=== PATIENT | male | born 1955 | race Two or more races ===

== ENCOUNTER 2019-01-29 00:27 | Emergency (ER) | payer MEDICARE ==
[~2019-01-29] VITALS: Ht 180.3 cm; Wt 81.6 kg
--- NOTE | 2019-01-29 00:36 | NUR ---
ED Nurse Note: Patient brought in by RA from [facility] c/o bleeding on portha cath dialysis access. As per EMS, nurses from the SNF tried to control the bleeding by applying pressure gauze but the bleeding woudnt stop. Denies any pain or discomfort. No SOB. Breathing even adn unlabored. Afebrile. VSS.
--- NOTE | 2019-01-29 00:39 | NUR ---
Spoke with Singh at [facility]-aware of patient going back.
[2019-01-29 00:45] VITALS: BP 121/69
--- NOTE | 2019-01-29 00:45 | NUR ---
ED Nurse Note: Porthacath dressing change done at bedside by BIRD.
--- NOTE | 2019-01-29 00:53 | Emergency Room Report ---
History of Present Illness General Chief Complaint: General Complaint Source: Patient Present Illness HPI Is a 63-year-old male with a history of renal failure on hemodialysis. He had a recent tunnel catheter placed in his right chest 2 to 3 days ago. Since then is been oozing blood and bleeding. According to EMS [facility] called because it was bleeding since 10 PM tonight and was not stopping leg before. So they called 911. They claim that the patient been picking at it. Denies any other injury. No fever chills but no nausea no vomiting. Patient is at baseline. Allergies: Coded Allergies: No Known Allergies (Unverified , 01/29/19) Patient History Past Medical History: see triage record, old chart reviewed, HTN, renal disease , dialysis Past Surgical History: other Pertinent Family History: none Social History: Denies: smoking Immunizations: other Reviewed Nursing Documentation: PMH: Agreed; PSxH: Agreed Nursing Documentation-PMH Past Medical History: No History, Except For Hx Hypertension: Yes Hx Dialysis: Yes - TTHS Review of Systems Eye: Denies: eye pain, blurred vision ENT: Denies: ear pain, nose congestion, throat swelling Respiratory: Denies: cough, shortness of breath Cardiovascular: Denies: chest pain, palpitations Gastrointestinal: Denies: abdominal pain, diarrhea, nausea, vomiting Musculoskeletal: Denies: back pain, joint pain Skin: Denies: rash Neurological: Denies: headache, numbness Endocrine: Denies: increased thirst, increased urine Hematologic/Lymphatic: Denies: easy bruising All Other Systems: negative except mentioned in HPI Physical Exam Vital Signs Date Time Temp Pulse Resp B/P (MAP) Pulse Ox O2 Delivery O2 Flow Rate FiO2 01/29/19 00:29 98.2 82 14 121/69 (86) 98 Room Air Vitals normal Sp02 EP Interpretation: reviewed, normal General Appearance: well appearing, no apparent distress, alert Head: normocephalic, atraumatic Eyes: bilateral eye PERRL, bilateral eye EOMI ENT: hearing grossly normal, normal pharynx Neck: full range of motion, supple, no meningismus Respiratory: chest non-tender, lungs clear, normal breath sounds, other - Right upper chest with tunneled dialysis catheter. There is oozing and clots at the entrance of the catheter. Cardiovascular #1: regular rate, rhythm, no murmur Gastrointestinal: normal bowel sounds, non tender, no mass, no organomegaly, no bruit, non-distended Musculoskeletal: back normal, normal range of motion, gait/station normal Psychiatric: mood/affect normal Procedures Laceration/Wound Repair Laceration/Wound Repair : Consent: Verbal Wound Location: chest Betadine Prep?: Yes Anesthesia: 1% Lidocaine Volume Anesthetic (ccs): 2 Wound Repaired With: sutures Suture Size/Type: 4:0, proline Number of Sutures: 2 Patient Tolerated: Well Complications: None Progress First, I remove the dressing and remove the clots. There was oozing from the entrance of the tunnel catheter into the skin. The opening is slightly too big. I then did local anesthetic 1% lidocaine without epinephrine. I placed 2 interrupted suture to close the opening. This stopped the bleeding. Patient tolerated suture without any problem. Dressing done afterward. Medical Decision Making Diagnostic Impression: Primary Impression: Post-op bleeding Qualified Codes: L76.22 - Postprocedural hemorrhage of skin and subcutaneous tissue following other procedure ER Course Patient presents with postoperative bleeding from tunnel catheter. This is because the opening is slightly too big for the dialysis catheter. It stopped after closing it up. No evidence of any infection. No evidence of damage to the catheter itself. Will discharge home to the [facility]. Last Vital Signs Date Time Temp Pulse Resp B/P (MAP) Pulse Ox O2 Delivery O2 Flow Rate FiO2 01/29/19 00:45 82 14 Room Air 01/29/19 00:29 98.2 121/69 (86) 98 Status: improved Disposition: HOME, SELF-CARE Condition: Stable Scripts Unable to Obtain Active Prescriptions or Reported Meds Additional Instructions: Follow-up with your doctor in 7 days. Return if symptoms worsen. Matthias Chicas MD Jan 29, 2019 00:53
[2019-01-29 02:24] VITALS: BP 151/71
--- NOTE | 2019-01-29 02:24 | NUR ---
ED Nurse Note: Pt cleared by ERMDr for discharge. DC instructions was given and explained to pt and verbalized understanding of teachings. All medical deviecs such as ID band removed. Pt is AAO x4, and left with all personal belongings. Accompanied by 2 EMT via bette.
== END 2019-01-29 02:24 ==
LOC: EDBD 00:27 → EMR 00:58
DX: L76.22 Postprocedural hemorrhage of skin and subcutaneous tissue following other procedure (principal); I12.9 Hypertensive chronic kidney disease with stage 1 through stage 4 chronic kidney disease, or unspecified chronic kidney disease; N18.9 Chronic kidney disease, unspecified; Z99.2 Dependence on renal dialysis
CPT/HCPCS: 99283

== ENCOUNTER 2019-02-17 10:17 | Emergency (ER) | payer MEDICARE, OTHER ==
[~2019-02-17] VITALS: Ht 172.7 cm; Wt 77.1 kg
[2019-02-17 10:20] VITALS: BP 135/87
--- NOTE | 2019-02-17 10:20 | NUR ---
ED Nurse Note: Pt BIBA from [facility] with bleeding from right chest permacath. Pt denies pain, SOB. Gauze dressing saturated and removed for observation. Pt on monitor, NAD, VSS, ERMD at bedside. Will continue to monitor patient.
--- NOTE | 2019-02-17 10:30 | NUR ---
ED Nurse Note: Permacath dressing removed, cleaned, and redressed. Patient NAD, VSS, calm, and resting. Will continue to monitor patient.
[2019-02-17] MEDS ORDERED: CARVEDILOL3.125 MG ORAL (10:32)
[2019-02-17] MEDS ORDERED: EPOGEN10000 UNIT SUBQ (10:32)
[2019-02-17] MEDS ORDERED: ASPIR 8181 MG ORAL (10:32)
[2019-02-17] MEDS ORDERED: LOSARTAN POTASS25 MG ORAL (10:32)
[2019-02-17] MEDS ORDERED: FAMOTIDINE20 MG ORAL (10:32)
[2019-02-17] MEDS ORDERED: HEPARIN SO5000 UNIT2 SUBQ (10:32)
[2019-02-17] MEDS ORDERED: ATORVASTATIN CA40 MG ORAL (10:33)
--- NOTE | 2019-02-17 10:42 | Emergency Room Report ---
History of Present Illness General Chief Complaint: General Complaint Source: EMS Present Illness HPI Disclaimer: Please note that this report is being documented using DRAGON technology. This can lead to erroneous entry secondary to incorrect interpretation by the dictating instrument. HPI: 63-year-old male with history of ESRD on hemodialysis TRS last hemodialysis 02/14 presents for evaluation of bleeding catheter. Patient recently had a tunnel catheter placed in the right chest wall for dialysis access. Last hemodialysis was 02/14 without complication. Catheter was found to be oozing today at his facility. Could not control the bleeding and the patient was sent over. He arrives with stable vital signs, denies pain. He was scheduled for dialysis today. He has no complaints. He is on heparin. PMH: ESRD, HTN PSH: Tunneled catheter Allergies: None Social Hx: None Allergies: Coded Allergies: No Known Allergies (Unverified , 01/29/19) Nursing Documentation-PMH Past Medical History: No History, Except For Hx Hypertension: Yes Hx Diabetes: Yes Hx Gastrointestinal Problems: Yes - GERD Hx Dialysis: Yes - MWF Review of Systems All Other Systems: negative except mentioned in HPI Physical Exam Vital Signs Date Time Temp Pulse Resp B/P (MAP) Pulse Ox O2 Delivery O2 Flow Rate FiO2 02/17/19 10:13 97.2 84 19 142/90 (107) 99 Room Air General: Awake and alert, no acute distress HEENT: NC/AT. EOMI. Neck: Supple, trachea midline Chest Wall: Tunneled catheter in the right chest wall. Bandages are saturated but there is no active bleeding. Some stable clots around the access sites. Cardiovascular: RRR. S1 and S2 normal. No murmur appreciated Resp: Normal work of breathing. No cough, wheezing or crackles appreciated Abdomen: Abdomen is soft, nondistended. Nontender Skin: Intact. No abrasions, laceration or rash over the exposed skin MSK: Normal tone and bulk. Moving all extremities. No obvious deformity. Neuro: Awake and alert. Mentating appropriately. Medical Decision Making Diagnostic Impression: Primary Impression: Encounter for dialysis catheter care ER Course 63-year-old male history of ESRD on hemodialysis TRS last dialysis session presents for evaluation of bleeding from his dialysis catheter. No active bleeding at the time. We will clean the port thoroughly and monitor. He is reportedly taking heparin. No signs of trauma. Otherwise he has no complaints. He arrives with stable vital signs. Will check labs given he has not had dialysis for 3 days. Otherwise well-appearing. Laboratory Tests Test 02/17/19 10:30 White Blood Count 8.3 K/UL (4.8-10.8) Red Blood Count 3.38 M/UL (4.70-6.10) L Hemoglobin 9.6 G/DL (14.2-18.0) L Hematocrit 31.1 % (42.0-52.0) L Mean Corpuscular Volume 92 FL (80-99) Mean Corpuscular Hemoglobin 28.3 PG (27.0-31.0) Mean Corpuscular Hemoglobin Concent 30.8 G/DL (32.0-36.0) L Red Cell Distribution Width 19.0 % (11.6-14.8) H Platelet Count 208 K/UL (150-450) Mean Platelet Volume 5.8 FL (6.5-10.1) L Neutrophils (%) (Auto) 65.8 % (45.0-75.0) Lymphocytes (%) (Auto) 22.9 % (20.0-45.0) Monocytes (%) (Auto) 8.2 % (1.0-10.0) Eosinophils (%) (Auto) 2.2 % (0.0-3.0) Basophils (%) (Auto) 1.0 % (0.0-2.0) Prothrombin Time 11.4 SEC (9.30-11.50) Prothrombin Time INR 1.1 (0.9-1.1) PTT 32 SEC (23-33) Sodium Level 136 MMOL/L (136-145) Potassium Level 4.9 MMOL/L (3.5-5.1) Chloride Level 101 MMOL/L (98-107) Carbon Dioxide Level 25 MMOL/L (21-32) Anion Gap 10 mmol/L (5-15) Blood Urea Nitrogen 95 mg/dL (7-18) H Creatinine 6.5 MG/DL (0.55-1.30) H Estimate Glomerular Filtration Rate 8.6 mL/min (>60) Glucose Level 234 MG/DL (74-106) H Calcium Level 9.0 MG/DL (8.5-10.1) Reevaluation Time: 12:07 Last Vital Signs Date Time Temp Pulse Resp B/P (MAP) Pulse Ox O2 Delivery O2 Flow Rate FiO2 02/17/19 10:13 97.2 84 19 142/90 (107) 99 Room Air Reevaluation Impression Labs unremarkable. No need for emergent dialysis. No recurrent bleeding. Can be discharged to his facility. Follow-up with nephrology and PMD. Disposition: [facility] Condition: Stable Don Gambino MD Feb 17, 2019 10:42
[2019-02-17] MEDS ORDERED: VENTOLIN HFA18 GM INH (10:44)
[2019-02-17] MEDS ORDERED: TYLENOL EXTRA500 MG ORAL (10:44)
[2019-02-17] MEDS ORDERED: ASCORBIC ACID500 MG ORAL (10:44)
[2019-02-17 10:51] LABS: ANION GAP 10 mmol/L (5-15); BLOOD UREA NITROGEN 95 mg/dL (7-18); CARBON DIOXIDE 25 MMOL/L (21-32); CHLORIDE 101 MMOL/L (98-107); CREATININE 6.5 MG/DL (0.55-1.30); EOSINOPHILS % (AUTO) 2.2 % (0.0-3.0); HEMATOCRIT 31.1 % (42.0-52.0); HEMOGLOBIN 9.6 G/DL (14.2-18.0); LYMPHOCYTES % (AUTO) 22.9 % (20.0-45.0); MEAN CORPUSCULAR VOLUME 92 FL (80-99); MONOCYTES % (AUTO) 8.2 % (1.0-10.0); NEUTROPHILS % (AUTO) 65.8 % (45.0-75.0); PLATELET COUNT 208 K/UL (150-450); POTASSIUM 4.9 MMOL/L (3.5-5.1); RED BLOOD COUNT 3.38 M/UL (4.70-6.10); SODIUM 136 MMOL/L (136-145); WHITE BLOOD COUNT 8.3 K/UL (4.8-10.8)
[2019-02-17] MEDS ORDERED: SILVADENE20 GM TP (10:53)
[2019-02-17] MEDS ORDERED: NEPHROVITE1 TAB ORAL (10:53)
[2019-02-17 11:23] LABS: INR 1.1 (0.9-1.1)
[2019-02-17] MEDS ORDERED: DOCUSATE SODIU100 MG ORAL (11:44)
[2019-02-17] MEDS ORDERED: INSULIN CHARG5 UNITS SUBQ (11:44)
[2019-02-17] MEDS ORDERED: INSULIN LI100 UNIT/1 SQ (11:44)
[2019-02-17 12:04] VITALS: BP 135/87
--- NOTE | 2019-02-17 12:56 | NUR ---
ED Nurse Note: REPORT GIVEN TO NURSE MICKEY FROM [facility]
[2019-02-17 13:30] VITALS: BP 133/67
--- NOTE | 2019-02-17 13:30 | NUR ---
ER DISCHARGE NOTE: Patient is cleared to be discharged per ERMD, pt is aox4, on room air, with stable vital signs. pt nurse Pauline was given dc and prescription instructions, pt and nurse was able to verbalize understanding, pt id band removed without complications. pt is transported to facility accompanied by [facility] via gurney. Pt belonging sent with patient.
== END 2019-02-17 13:30 | disposition home or self-care (01) ==
LOC: EDBD 10:17 → EMR 11:10
DX: Z49.01 Encounter for fitting and adjustment of extracorporeal dialysis catheter (principal); E11.22 Type 2 diabetes mellitus with diabetic chronic kidney disease; I12.0 Hypertensive chronic kidney disease with stage 5 chronic kidney disease or end stage renal disease; N18.6 End stage renal disease; K21.9 Gastro-esophageal reflux disease without esophagitis
CPT/HCPCS: 36415; 80048; 85025; 85610; 85730; 99284

== ENCOUNTER 2019-02-21 18:51 | Inpatient (IN) | payer MEDICARE, OTHER ==
[~2019-02-21] VITALS: Ht 172.7 cm; Wt 75.7 kg
[2019-02-21] MEDS: Heparin 5000 units/ml inj SUBQ SCH (00:55)
[2019-02-21] MEDS: NovoLOG Insulin Flexpen SUBQ SCH (00:55)
[~2019-02-21 18:51] MED LIST: ASCORBIC ACID500 MG ORAL; ASPIR 8181 MG ORAL; ATORVASTATIN CA40 MG ORAL; CARVEDILOL3.125 MG ORAL; DOCUSATE SODIU100 MG ORAL; EPOGEN10000 UNIT SUBQ; FAMOTIDINE20 MG ORAL; HEPARIN SO5000 UNIT2 SUBQ; INSULIN CHARG5 UNITS SUBQ; INSULIN LI100 UNIT/1 SQ; LOSARTAN POTASS25 MG ORAL; NEPHROVITE1 TAB ORAL; SILVADENE20 GM TP; TYLENOL EXTRA500 MG ORAL; VENTOLIN HFA18 GM INH
--- NOTE | 2019-02-21 18:55 | NUR ---
ED Nurse Note: Pt BIBA from [facility] d/t SOB. Pt is AOx3 tajik speaking. Current O2 sat is on 96-99% with 15 liters. Pt arrived with family member. Accucheck performed by in store marketing representative with 182mg/dl; denies pain and trauma. Per in store marketing representative, pt had a missed dialysis today. Shunt on RT wrist. Placed on bed; hooked to property assessment monitor.
[2019-02-21] MEDS ORDERED: SULFADIAZINE MC (18:59)
[2019-02-21] MEDS ORDERED: NEPHROVITE1 TAB ORAL (18:59)
--- NOTE | 2019-02-21 19:10 | NUR ---
HAND-OFF: Report given to KRISTEN Quijano.
--- NOTE | 2019-02-21 19:10 | NUR ---
Note georgeone in EDM - 02/21/19 at 1941 by LUX ED Nurse Note: Report received from KRISTEN Obrien. Pt has shunt on right upper chest. Pt is on NRB at 15L oxygen at this time o2 sat 98%. Pt is lethargic and unable to answer questions. IV line established on L forearm. Will continue to monitor.
[2019-02-21 19:15] VITALS: BP 102/54
[2019-02-21] MEDS ORDERED: NS 250 ML IVPB ONE (19:30)
[2019-02-21 19:35] LABS: HEMATOCRIT 32.8 % (42.0-52.0); HEMOGLOBIN 10.3 G/DL (14.2-18.0); MEAN CORPUSCULAR VOLUME 95 FL (80-99); PLATELET COUNT 210 K/UL (150-450); RED BLOOD COUNT 3.46 M/UL (4.70-6.10); RED CELL DISTRIBUTION WIDTH 19.7 % (11.6-14.8); WHITE BLOOD COUNT 15.2 K/UL (4.8-10.8)
[2019-02-21 20:05] LABS: ANION GAP 12 mmol/L (5-15); BLOOD UREA NITROGEN 48 mg/dL (7-18); CALCIUM 8.7 MG/DL (8.5-10.1); CARBON DIOXIDE 28 MMOL/L (21-32); CHLORIDE 101 MMOL/L (98-107); CREATININE 3.9 MG/DL (0.55-1.30); POTASSIUM 4.5 MMOL/L (3.5-5.1); SODIUM 140 MMOL/L (136-145)
[2019-02-21 20:15] LABS: ALANINE AMINOTRANSFERASE 31 U/L (12-78); ALBUMIN 2.5 G/DL (3.4-5.0); ALBUMIN/GLOBULIN RATIO 0.5 (1.0-2.7); ALKALINE PHOSPHATASE 301 U/L (46-116); ASPARTATE AMINO TRANSFERASE 48 U/L (15-37)
[2019-02-21 20:19] LABS: BILIRUBIN,DIRECT 1.7 MG/DL (0.0-0.3)
[2019-02-21] MEDS ORDERED: Promethazine/Codeine 5ml UD ORAL PRN (20:45)
[2019-02-21] MEDS ORDERED: Miralax 17gm pkt ORAL PRN (20:45)
[2019-02-21] MEDS ORDERED: LORazepam Inj 2mg/ml 1ml IV PRN (20:45)
[2019-02-21] MEDS ORDERED: Albuterol/Ipratropium 3ml neb HHN PRN (20:45)
[2019-02-21 21:00] VITALS: BP 113/69
--- NOTE | 2019-02-21 21:33 | Emergency Room Report ---
History of Present Illness General Chief Complaint: Dyspnea/Respdistress Source: Family Member, Medical Record Present Illness HPI 63-year-old male presents ED for evaluation. [facility] Shortness of breath x1 day. Patient has history of end- stage renal disease on dialysis. Scheduled for dialysis today but brought to the hospital. Patient unable to provide any additional history at this time. No reported fevers or chills. No reported chest pain. No other aggravating relieving factors. No other associated symptoms Allergies: Coded Allergies: No Known Allergies (Unverified , 01/29/19) Patient History Past Medical History: DM, HTN, GERD, renal disease, dialysis Past Surgical History: none Pertinent Family History: none Social History: Denies: smoking, alcohol use, drug use Immunizations: UTD Reviewed Nursing Documentation: PMH: Agreed; PSxH: Agreed Nursing Documentation-PMH Past Medical History: No History, Except For Hx Hypertension: Yes Hx Diabetes: Yes Hx Gastrointestinal Problems: Yes - GERD Hx Dialysis: Yes - MWF; ESRD; UTI Review of Systems All Other Systems: limited Physical Exam Vital Signs Date Time Temp Pulse Resp B/P (MAP) Pulse Ox O2 Delivery O2 Flow Rate FiO2 02/21/19 18:46 97.5 60 20 101/68 (79) 99 Nasal Cannula 10.0 Sp02 EP Interpretation: reviewed, normal General Appearance: mild distress Head: normocephalic Eyes: bilateral eye normal inspection, bilateral eye PERRL ENT: normal ENT inspection Neck: normal inspection Respiratory: crackles Cardiovascular #1: regular rate, rhythm, no edema Gastrointestinal: normal bowel sounds, non tender, soft, non-distended, no guarding, no rebound Rectal: deferred Genitourinary: no CVA tenderness Musculoskeletal: normal inspection Neurologic: other - ALOC Psychiatric: other - ALOC Skin: other - see nursing skin notes Lymphatic: normal inspection Medical Decision Making Diagnostic Impression: Primary Impression: ESRF (end stage renal failure) Additional Impression: Pleural effusion ER Course Hospital Course 63 yo M presents with SOB. h/o ESRD on dialysis Differential diagnoses include: MO/unstable angina, fluid overload, CHF exacerabation, hyperkalemia, uremia Clinical course Patient placed on stretcher. on hospital monitor. After initial history and physical I ordered labs, EKG, chest x-ray labs reviewed- BUN/Cr elevated. K ok. noted leukocytosis, hemoglobin/ hematocrit stable. Trop 0.064. ABG wnl EKG - NSR, no acute ischemic changes inteprreted by me Chest x-ray- large bialteral pleural effusiosn given abx. Case discussed with Dr. jauregui and he agreed to accept the patient to his service for further care and support I. I feel this is a highly complex case requiring extensive working including EKG/Rhythm strip, Xray/CT/US, Blood/urine lab work, repeat exams while in ED, and administration of strong opiates/narcotics for pain control, admission to hospital or close patient follow up. Diagnosis - ESRF, pleural effusion admitted to telemetry in serious condition Labs Test 02/21/19 19:10 02/21/19 19:30 White Blood Count 15.2 K/UL (4.8-10.8) Red Blood Count 3.46 M/UL (4.70-6.10) Hemoglobin 10.3 G/DL (14.2-18.0) Hematocrit 32.8 % (42.0-52.0) Mean Corpuscular Volume 95 FL (80-99) Mean Corpuscular Hemoglobin 29.9 PG (27.0-31.0) Mean Corpuscular Hemoglobin Concent 31.4 G/DL (32.0-36.0) Red Cell Distribution Width 19.7 % (11.6-14.8) Platelet Count 210 K/UL (150-450) Mean Platelet Volume 7.2 FL (6.5-10.1) Neutrophils (%) (Auto) % (45.0-75.0) Lymphocytes (%) (Auto) % (20.0-45.0) Monocytes (%) (Auto) % (1.0-10.0) Eosinophils (%) (Auto) % (0.0-3.0) Basophils (%) (Auto) % (0.0-2.0) Sodium Level 140 MMOL/L (136-145) Potassium Level 4.5 MMOL/L (3.5-5.1) Chloride Level 101 MMOL/L (98-107) Carbon Dioxide Level 28 MMOL/L (21-32) Anion Gap 12 mmol/L (5-15) Blood Urea Nitrogen 48 mg/dL (7-18) Creatinine 3.9 MG/DL (0.55-1.30) Estimat Glomerular Filtration Rate 15.6 mL/min (>60) Glucose Level 160 MG/DL (74-106) Calcium Level 8.7 MG/DL (8.5-10.1) Total Bilirubin 2.0 MG/DL (0.2-1.0) Direct Bilirubin 1.7 MG/DL (0.0-0.3) Aspartate Amino Transf (AST/SGOT) 48 U/L (15-37) Alanine Aminotransferase (ALT/SGPT) 31 U/L (12-78) Alkaline Phosphatase 301 U/L (46-116) Troponin I 0.064 ng/mL (0.000-0.056) Pro-B-Type Natriuretic Peptide 67885 pg/mL (0-125) Total Protein 7.4 G/DL (6.4-8.2) Albumin 2.5 G/DL (3.4-5.0) Globulin 4.9 g/dL Albumin/Globulin Ratio 0.5 (1.0-2.7) Arterial Blood pH 7.405 (7.350-7.450) Arterial Blood Partial Pressure CO2 43.5 mmHg (35.0-45.0) Arterial Blood Partial Pressure O2 89.2 mmHg (75.0-100.0) Arterial Blood HCO3 26.6 mmol/L (22.0-26.0) Arterial Blood Oxygen Saturation 95.7 % (95-100) Arterial Blood Base Excess 1.7 (-2-2) Shai Test Positive EKG Diagnostic Results Rate: normal Rhythm: NSR ST Segments: no acute changes ASA given to the pt in ED: No Rhythm Strip Diag. Results EP Interpretation: yes Rhythm: NSR, no PVC's, no ectopy Chest X-Ray Diagnostic Results Chest X-Ray Diagnostic Results : Chest X-Ray Ordered: Yes # of Views/Limited/Complete: 1 View Indication: Shortness of Breath EP Interpretation: Yes Interpretation: no pneumothorax, other - pleural effusion bilaterally. dialysis catheter in chest Impression: Other - pleural effusion Electronically Signed by: Electronically signed by Isaak Mo MD Last Vital Signs Date Time Temp Pulse Resp B/P (MAP) Pulse Ox O2 Delivery O2 Flow Rate FiO2 02/21/19 19:15 97.5 65 20 102/54 98 Non-Rebreather 15.0 Status: improved Disposition: ADMITTED INPATIENT Condition: Serious Referrals: NON PHYSICIAN (PCP) Isaak Mo MD Feb 21, 2019 21:33
--- NOTE | 2019-02-21 22:50 | NUR ---
ED Nurse Note: Pt taken to tele unit by RN and stephen, connected to ekg monitor. Pt is stable to transport to unit via ERMD. Pt aaox2, moaning, no cardiac or respiratory distress noted. Pt vss as charted. Pt belongings sent to unit with pt.
--- NOTE | 2019-02-21 23:45 | NUR ---
Surveyor Hydrographic: Received pt from Sotero Laboy RN. Pt is awake and transported via gurney. surveillance system monitor placed on patient, vitals taken. Iv site intact. Bed locked in lowest position, bed alarm on, HOB at 45 degrees and non re-breather on 100%, call light within reach. Belongings list verified at bedside. Will continue with plan of care.
[2019-02-22] VITALS: BP 102/60
[2019-02-22] MEDS: Cefepime HCl 2 GM in D5W 110 ML IV SCH (00:27)
[2019-02-22] MEDS: Morphine Sulfate 4mg/ml Inj (IV USE ONLY) IVP PRN ×2 (00:43→16:16)
[2019-02-22] MEDS ORDERED: Vancomycin 750 MG in NS 275 ML IVPB SCH (02:00)
[2019-02-22] MEDS ORDERED: Vancomycin 1 GM in D5W 275 ML IVPB SCH (02:00)
[2019-02-22 04:00] VITALS: BP 105/69
[2019-02-22] MEDS: NovoLOG Insulin Flexpen SUBQ SCH ×4 (06:46→21:55)
[2019-02-22 07:22] LABS: HEMATOCRIT 33.4 % (42.0-52.0); HEMOGLOBIN 10.5 G/DL (14.2-18.0); MEAN CORPUSCULAR VOLUME 95 FL (80-99); PLATELET COUNT 183 K/UL (150-450); RED BLOOD COUNT 3.52 M/UL (4.70-6.10); RED CELL DISTRIBUTION WIDTH 20.8 % (11.6-14.8); WHITE BLOOD COUNT 15.6 K/UL (4.8-10.8)
[2019-02-22 07:57] LABS: ALBUMIN 2.3 G/DL (3.4-5.0); ANION GAP 11 mmol/L (5-15); BLOOD UREA NITROGEN 54 mg/dL (7-18); CALCIUM 8.9 MG/DL (8.5-10.1); CARBON DIOXIDE 26 MMOL/L (21-32); CHLORIDE 96 MMOL/L (98-107); CREATININE 4.4 MG/DL (0.55-1.30); PHOSPHORUS 5.5 MG/DL (2.5-4.9); POTASSIUM 4.4 MMOL/L (3.5-5.1); SODIUM 133 MMOL/L (136-145)
--- NOTE | 2019-02-22 07:58 | NUR ---
NURSE NOTES: Report received from KRISTEN Rutledge. Pt. AOx2. On non breather mask with 15L, saturating 96. Denies SOB. L FA 20g IV intact, SL. Repositioned for comfort. Room made free of clutter. Bed on lowest position, side rails upx2, brakes engaged, alarm on. Call light within easy reach.
--- NOTE | 2019-02-22 07:58 | NUR ---
HAND-OFF: Report given to KRISTEN beaulieu. Endorsed plan of care.
[2019-02-22 08:00] VITALS: BP 113/68
[2019-02-22] MEDS: Heparin 5000 units/ml inj SUBQ SCH ×3 (09:08→22:02)
--- NOTE | 2019-02-22 09:30 | Consultation ---
Consult Note Consult Note asked to eval by Dr Rose for dialysis management 63-year-old male presents ED for evaluation. Brought in by EMS from alf facility. Shortness of breath x1 day. Patient has history of end- stage renal disease on dialysis. Scheduled for dialysis today but brought to the hospital. Patient unable to provide any additional history at this time. No reported fevers or chills. No reported chest pain. No other aggravating relieving factors. No other associated symptoms No Known Allergies (Unverified , 01/29/19) Past Medical History: DM, HTN, GERD, renal disease, dialysis Past Medical History: No History, Except For Hx Hypertension: Yes Hx Diabetes: Yes Hx Gastrointestinal Problems: Yes - GERD Hx Dialysis: Yes - MWF; ESRD; UTI Assessment/Plan ESRD - Has right chest permacath Anemia Leukocytosis Pleural effusion Bradycardia troponin elevation Antibiotics HD 2D echo Magan Lara MD Feb 22, 2019 09:30
--- NOTE | 2019-02-22 10:10 | Consultation ---
History of Present Illness General Date patient seen: Feb 22, 2019 Chief Complaint: Dyspnea/Respdistress Reason for Consultation: PNA Present Illness HPI Mr. Hawley is a 63 yomale with PMHx of ESRD on HD, DM, and HTN who was [facility] the ED from his [facility] for SOB. He is altered and unable to give futher history. Per notes there was no reported fever or chills. In the ED he was put on O2 and was ntoed to have b/L Large pleural effusions. He has been aferbile but WBCs are 15. No UA had been collected. ID was consulted for sepsis PMHx/PSHx ESRD on HD DM HTN SocHx Unable to obtain due to AMS FamHx Unable to obtain due to AMS Allergies: Coded Allergies: No Known Allergies (Unverified , 01/29/19) Medication History Scheduled Albuterol Sulfate (Ventolin Hfa), 1 PUFF INH EVERY 2 HOURS, (Reported) Atorvastatin Calcium* (Atorvastatin Calcium*), 40 MG ORAL BEDTIME, (Reported) Carvedilol* (Carvedilol*), 3.125 MG ORAL EVERY 12 HOURS, (Reported) Docusate Sodium* (Docusate Sodium*), 100 MG ORAL TWICE A DAY, (Reported) Epoetin Faizan (Epogen), 10,000 UNIT SUBQ 3XW, (Reported) Famotidine* (Pepcid 20mg tablet*), 20 MG ORAL TWICE A DAY, (Reported) Insulin Human NPH (Novolin N), 12 UNITS SUBQ THREE TIMES A DAY, (Reported) Insulin Lispro (Insulin Lispro), 0-8 UNIT SQ FOUR TIMES A DAY, (Reported) Losartan Potassium* (Losartan Potassium*), 25 MG ORAL DAILY, (Reported) Vitamin B Cmplx/Vit C/Folic AC (Nephro-Chrissie Tablet), 1 TAB ORAL DAILY, (Reported ) Scheduled PRN Acetaminophen* (Tylenol Extra Strength*), 325 MG ORAL Q6H PRN for Mild Pain/ Temp > 100.5, (Reported) Miscellaneous Medications Sulfadiazine Sodium (Sulfadiazine), 100 GM MC, (Reported) Discontinued Medications Ascorbic Acid* (Ascorbic Acid*), 250 MG ORAL DAILY, (Reported) Discontinued Reason: Therapy completed Aspirin* (Aspir 81*), 81 MG ORAL DAILY, (Reported) Discontinued Reason: Therapy completed Heparin Sod (Porcine) (Heparin Sodium*), 5,000 UNITS SUBQ EVERY 12 HOURS, ( Reported) Discontinued Reason: Therapy completed Silver Sulfadiazine (Silvadene), 20 GM TP DAILY, (Reported) Discontinued Reason: Therapy completed Vitamin B Cmplx/Vit C/Folic AC (Nephro-Chrissie Tablet), 1 TAB ORAL DAILY, (Reported ) Discontinued Reason: Therapy completed Patient History Healthcare decision maker Resuscitation status Full Code Advanced Directive on File Review of Systems ROS Narrative Unable to obtain due to AMS Physical Exam Last 24 Hour Vital Signs Date Time Temp Pulse Resp B/P (MAP) Pulse Ox O2 Delivery O2 Flow Rate FiO2 02/22/19 09:00 60 113/68 02/22/19 08:00 97.9 61 22 113/68 (83) 97 02/22/19 08:00 15.0 02/22/19 04:00 60 02/22/19 04:00 97.4 60 20 105/69 (81) 95 02/22/19 04:00 15.0 02/22/19 00:30 Non-Rebreather 15.0 02/22/19 00:00 64 02/22/19 00:00 97.3 64 20 102/60 (74) 96 02/21/19 22:50 98.0 66 20 99/61 100 Non-Rebreather 15.0 02/21/19 21:00 97.5 65 15 113/69 98 Non-Rebreather 15.0 02/21/19 19:15 97.5 65 20 102/54 98 Non-Rebreather 15.0 02/21/19 19:10 60 20 Non-Rebreather 15.0 02/21/19 18:46 97.5 60 20 101/68 (79) 99 Nasal Cannula 10.0 Laboratory Tests Test 02/21/19 19:10 02/21/19 19:30 02/21/19 21:45 02/22/19 06:50 White Blood Count 15.2 K/UL (4.8-10.8) H 15.6 K/UL (4.8-10.8) H Red Blood Count 3.46 M/UL (4.70-6.10) L 3.52 M/UL (4.70-6.10) L Hemoglobin 10.3 G/DL (14.2-18.0) L 10.5 G/DL (14.2-18.0) L Hematocrit 32.8 % (42.0-52.0) L 33.4 % (42.0-52.0) L Mean Corpuscular Volume 95 FL (80-99) 95 FL (80-99) Mean Corpuscular Hemoglobin 29.9 PG (27.0-31.0) 29.7 PG (27.0-31.0) Mean Corpuscular Hemoglobin Concent 31.4 G/DL (32.0-36.0) L 31.4 G/DL (32.0-36.0) L Red Cell Distribution Width 19.7 % (11.6-14.8) H 20.8 % (11.6-14.8) H Platelet Count 210 K/UL (150-450) 183 K/UL (150-450) Mean Platelet Volume 7.2 FL (6.5-10.1) 6.8 FL (6.5-10.1) Neutrophils (%) (Auto) % (45.0-75.0) % (45.0-75.0) Lymphocytes (%) (Auto) % (20.0-45.0) % (20.0-45.0) Monocytes (%) (Auto) % (1.0-10.0) % (1.0-10.0) Eosinophils (%) (Auto) % (0.0-3.0) % (0.0-3.0) Basophils (%) (Auto) % (0.0-2.0) % (0.0-2.0) Differential Total Cells Counted 100 Neutrophils % (Manual) 76 % (45-75) H Pending Lymphocytes % (Manual) 4 % (20-45) L Pending Monocytes % (Manual) 1 % (1-10) Eosinophils % (Manual) 0 % (0-3) Basophils % (Manual) 0 % (0-2) Band Neutrophils 19 % (0-8) H Platelet Estimate Adequate Pending Platelet Morphology Normal Pending Hypochromasia 1+ Anisocytosis 1+ Sodium Level 140 MMOL/L (136-145) 133 MMOL/L (136-145) L Potassium Level 4.5 MMOL/L (3.5-5.1) 4.4 MMOL/L (3.5-5.1) Chloride Level 101 MMOL/L (98-107) 96 MMOL/L (98-107) L Carbon Dioxide Level 28 MMOL/L (21-32) 26 MMOL/L (21-32) Anion Gap 12 mmol/L (5-15) 11 mmol/L (5-15) Blood Urea Nitrogen 48 mg/dL (7-18) H 54 mg/dL (7-18) H Creatinine 3.9 MG/DL (0.55-1.30) H 4.4 MG/DL (0.55-1.30) H Estimat Glomerular Filtration Rate 15.6 mL/min (>60) 13.6 mL/min (>60) Glucose Level 160 MG/DL (74-106) H 154 MG/DL (74-106) H Calcium Level 8.7 MG/DL (8.5-10.1) 8.9 MG/DL (8.5-10.1) Total Bilirubin 2.0 MG/DL (0.2-1.0) H Pending Direct Bilirubin 1.7 MG/DL (0.0-0.3) H Pending Aspartate Amino Transf (AST/SGOT) 48 U/L (15-37) H Pending Alanine Aminotransferase (ALT/SGPT) 31 U/L (12-78) Pending Alkaline Phosphatase 301 U/L (46-116) H Pending Troponin I 0.064 ng/mL (0.000-0.056) Pro-B-Type Natriuretic Peptide 90426 pg/mL (0-125) H Total Protein 7.4 G/DL (6.4-8.2) Pending Albumin 2.5 G/DL (3.4-5.0) L Pending Globulin 4.9 g/dL Albumin/Globulin Ratio 0.5 (1.0-2.7) L Arterial Blood pH 7.405 (7.350-7.450) Arterial Blood Partial Pressure CO2 43.5 mmHg (35.0-45.0) Arterial Blood Partial Pressure O2 89.2 mmHg (75.0-100.0) Arterial Blood HCO3 26.6 mmol/L (22.0-26.0) H Arterial Blood Oxygen Saturation 95.7 % (95-100) Arterial Blood Base Excess 1.7 (-2-2) Shai Test Positive Lactic Acid Level 1.80 mmol/L (0.4-2.0) Hemoglobin A1c Pending Uric Acid Pending Phosphorus Level Pending Magnesium Level Pending Gamma Glutamyl Transpeptidase Pending Total Creatine Kinase Pending Triglycerides Level Pending Cholesterol Level Pending LDL Cholesterol Pending HDL Cholesterol Pending Cholesterol/HDL Ratio Pending Thyroid Stimulating Hormone (TSH) Pending Microbiology Date/Time Source Procedure Growth Status 02/21/19 21:45 Blood Blood Culture - Preliminary Resulted 02/21/19 21:30 Blood Blood Culture - Preliminary Resulted Height (Feet): 5 Height (Inches): 8.00 Weight (Pounds): 169 Medications Current Medications Medications (Trade) Dose Ordered Sig/Feli Route PRN Reason Start Time Stop Time Status Last Admin Dose Admin Acetaminophen (Tylenol) 650 mg Q4H PRN ORAL FEVER 02/21/19 20:45 03/23/19 20:44 Albumin Human 500 ml @ 0 mls/hr Q0M ONCE IV 02/22/19 09:45 02/22/19 09:46 UNV Albuterol/ Ipratropium (Albuterol/ Ipratropium) 3 ml Q4H PRN HHN Shortness of Breath 02/21/19 20:45 02/26/19 20:44 Cefepime HCl 2 gm/ Dextrose 110 ml @ 220 mls/hr Q24H IV 02/22/19 00:00 03/01/19 00:00 02/22/19 00:27 Dextrose (Dextrose 50%) 25 ml Q30M PRN IV Hypoglycemia 02/21/19 20:45 03/23/19 20:44 Dextrose (Dextrose 50%) 50 ml Q30M PRN IV Hypoglycemia 02/21/19 20:45 03/23/19 20:44 Heparin Sodium (Porcine) (Heparin 5000 units/ml) 5,000 units EVERY 12 HOURS SUBQ 02/21/19 21:00 03/23/19 20:59 02/22/19 09:08 Insulin Aspart (NovoLOG) BEFORE MEALS AND HS SUBQ 02/21/19 21:00 03/23/19 20:59 02/22/19 06:46 Lorazepam (Ativan 2mg/ml 1ml) 2 mg Q3H PRN IV For Anxiety 02/21/19 20:45 1/6/20 20:44 Morphine Sulfate (Morphine Sulfate) 4 mg Q4H PRN IVP Severe Pain (Pain Scale 7-10) 02/21/19 20:45 02/28/19 20:44 02/22/19 00:43 Ondansetron HCl (Zofran) 4 mg Q6H PRN IVP Nausea & Vomiting 02/21/19 20:45 03/23/19 20:44 Pantoprazole (Protonix) 40 mg EVERY 12 HOURS IVP 02/22/19 21:00 03/24/19 20:59 UNV Polyethylene Glycol (Miralax) 17 gm DAILYPRN PRN ORAL Constipation 02/21/19 20:45 03/23/19 20:44 Promethazine HCl/ Codeine (Phenergan with Codeine) 5 ml Q4H PRN ORAL For Cough 02/21/19 20:45 03/23/19 20:44 Objective Narrative Gen: Confused, On NRB 15L HEENT: NCAT, MMM, EOMI, PERRL, No Oral lesion, no scleral icterus NECK: full range of motion, supple, no meningismus, No LAD, No JVD LUNGS: CTAB, No W/C, No Accessory muscle use CARDS: RRR, S1, S2, No M/R/G, ABD: Soft, NT, ND, No R/G, + BS, No HSM, No Masses : Deferred Ext: C/C/E, Pulses 2+ B/L (DP, Rad): NEURO: A/O x 0, Moving ext SKIN: Warm/dry, No rashes Assessment/Plan Assessment/Plan: 63 yo male with PMHx of ESRD on HD, DM, and HTN who was sent to the ED from his [facility] for SOB. Respiratory failure Likely due to PNA vs Plerual effusions CXR showed large bialteral pleural effusions No fever Leukocytosis ESRD on HD DM HTN PLAN - Continue Cefepime #1 and Vancomycin #1 - f/u cultures - check Influ screen - Monitor CBC and Temps Thank you for this consult. [facility] will continue to follow the patient with you during this hospitalization. Jaime Lux MD Feb 22, 2019 10:10
[2019-02-22 10:30] LABS: ALANINE AMINOTRANSFERASE 28 U/L (12-78); ALBUMIN 2.4 G/DL (3.4-5.0); ALKALINE PHOSPHATASE 267 U/L (46-116); ASPARTATE AMINO TRANSFERASE 41 U/L (15-37); BILIRUBIN,DIRECT 1.7 MG/DL (0.0-0.3); BILIRUBIN,TOTAL 1.9 MG/DL (0.2-1.0); CHOLESTEROL 122 MG/DL (< 200); CREATINE KINASE 76 U/L (26-308); GAMMA GLUTAMYL TRANSPEPTIDASE 353 U/L (5-85); HDL CHOLESTEROL 30 MG/DL (40-60); PHOSPHORUS 5.4 MG/DL (2.5-4.9); TRIGLYCERIDES 95 MG/DL (30-150)
--- NOTE | 2019-02-22 11:21 | History and Physical ---
History of Present Illness General Date patient seen: Feb 22, 2019 Reason for Hospitalization: Dyspnea/Respdistress Present Illness HPI 63 year old male with hx of ESRF, on HD T, Th, F. HTN, EF of 20%, DM, cognitive impairment with recent recurrent hospitalization brought in from custodial with CC or increasing shortness of breath. He also had leukocytosis. He was/ still is confused and hypoxemic. His CXR showed moderate right effusion Allergies: Coded Allergies: No Known Allergies (Unverified , 01/29/19) Medication History Scheduled Albuterol Sulfate (Ventolin Hfa), 1 PUFF INH EVERY 2 HOURS, (Reported) Atorvastatin Calcium* (Atorvastatin Calcium*), 40 MG ORAL BEDTIME, (Reported) Carvedilol* (Carvedilol*), 3.125 MG ORAL EVERY 12 HOURS, (Reported) Docusate Sodium* (Docusate Sodium*), 100 MG ORAL TWICE A DAY, (Reported) Epoetin Faizan (Epogen), 10,000 UNIT SUBQ 3XW, (Reported) Famotidine* (Pepcid 20mg tablet*), 20 MG ORAL TWICE A DAY, (Reported) Insulin Human NPH (Novolin N), 12 UNITS SUBQ THREE TIMES A DAY, (Reported) Insulin Lispro (Insulin Lispro), 0-8 UNIT SQ FOUR TIMES A DAY, (Reported) Losartan Potassium* (Losartan Potassium*), 25 MG ORAL DAILY, (Reported) Vitamin B Cmplx/Vit C/Folic AC (Nephro-Chrissie Tablet), 1 TAB ORAL DAILY, (Reported ) Scheduled PRN Acetaminophen* (Tylenol Extra Strength*), 325 MG ORAL Q6H PRN for Mild Pain/ Temp > 100.5, (Reported) Miscellaneous Medications Sulfadiazine Sodium (Sulfadiazine), 100 GM MC, (Reported) Discontinued Medications Ascorbic Acid* (Ascorbic Acid*), 250 MG ORAL DAILY, (Reported) Discontinued Reason: Therapy completed Aspirin* (Aspir 81*), 81 MG ORAL DAILY, (Reported) Discontinued Reason: Therapy completed Heparin Sod (Porcine) (Heparin Sodium*), 5,000 UNITS SUBQ EVERY 12 HOURS, ( Reported) Discontinued Reason: Therapy completed Silver Sulfadiazine (Silvadene), 20 GM TP DAILY, (Reported) Discontinued Reason: Therapy completed Vitamin B Cmplx/Vit C/Folic AC (Nephro-Chrissie Tablet), 1 TAB ORAL DAILY, (Reported ) Discontinued Reason: Therapy completed Patient History Healthcare decision maker Resuscitation status Full Code Advanced Directive on File Past Medical/Surgical History Past Medical/Surgical History: (1) Hypertension (2) Diabetes mellitus (3) ESRF (end stage renal failure) (4) Cognitive impairment (5) Pleural effusion Review of Systems All Other Systems: negative except mentioned in HPI Physical Exam General Appearance: WD/WN, confused Lines, tubes and drains: peripheral HEENT: normocephalic, atraumatic Neck: non-tender, normal alignment Respiratory/Chest: chest wall non-tender, lungs clear, decreased breath sounds Breasts: no masses Cardiovascular/Chest: normal peripheral pulses Abdomen: normal bowel sounds, non tender Genitourinary/Rectal: normal genital exam Extremities: normal range of motion Skin Exam: normal pigmentation 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 Lymphatic: anterior cervical Last 24 Hour Vital Signs Date Time Temp Pulse Resp B/P (MAP) Pulse Ox O2 Delivery O2 Flow Rate FiO2 02/22/19 09:00 60 113/68 02/22/19 08:00 97.9 61 22 113/68 (83) 97 02/22/19 08:00 15.0 02/22/19 04:00 60 02/22/19 04:00 97.4 60 20 105/69 (81) 95 02/22/19 04:00 15.0 02/22/19 00:30 Non-Rebreather 15.0 02/22/19 00:00 64 02/22/19 00:00 97.3 64 20 102/60 (74) 96 02/21/19 22:50 98.0 66 20 99/61 100 Non-Rebreather 15.0 02/21/19 21:00 97.5 65 15 113/69 98 Non-Rebreather 15.0 02/21/19 19:15 97.5 65 20 102/54 98 Non-Rebreather 15.0 02/21/19 19:10 60 20 Non-Rebreather 15.0 02/21/19 18:46 97.5 60 20 101/68 (79) 99 Nasal Cannula 10.0 Laboratory Tests Test 02/21/19 19:10 02/21/19 19:30 02/21/19 21:45 02/22/19 06:50 White Blood Count 15.2 K/UL (4.8-10.8) H 15.6 K/UL (4.8-10.8) H Red Blood Count 3.46 M/UL (4.70-6.10) L 3.52 M/UL (4.70-6.10) L Hemoglobin 10.3 G/DL (14.2-18.0) L 10.5 G/DL (14.2-18.0) L Hematocrit 32.8 % (42.0-52.0) L 33.4 % (42.0-52.0) L Mean Corpuscular Volume 95 FL (80-99) 95 FL (80-99) Mean Corpuscular Hemoglobin 29.9 PG (27.0-31.0) 29.7 PG (27.0-31.0) Mean Corpuscular Hemoglobin Concent 31.4 G/DL (32.0-36.0) L 31.4 G/DL (32.0-36.0) L Red Cell Distribution Width 19.7 % (11.6-14.8) H 20.8 % (11.6-14.8) H Platelet Count 210 K/UL (150-450) 183 K/UL (150-450) Mean Platelet Volume 7.2 FL (6.5-10.1) 6.8 FL (6.5-10.1) Neutrophils (%) (Auto) % (45.0-75.0) % (45.0-75.0) Lymphocytes (%) (Auto) % (20.0-45.0) % (20.0-45.0) Monocytes (%) (Auto) % (1.0-10.0) % (1.0-10.0) Eosinophils (%) (Auto) % (0.0-3.0) % (0.0-3.0) Basophils (%) (Auto) % (0.0-2.0) % (0.0-2.0) Differential Total Cells Counted 100 Neutrophils % (Manual) 76 % (45-75) H Pending Lymphocytes % (Manual) 4 % (20-45) L Pending Monocytes % (Manual) 1 % (1-10) Eosinophils % (Manual) 0 % (0-3) Basophils % (Manual) 0 % (0-2) Band Neutrophils 19 % (0-8) H Platelet Estimate Adequate Pending Platelet Morphology Normal Pending Hypochromasia 1+ Anisocytosis 1+ Sodium Level 140 MMOL/L (136-145) 133 MMOL/L (136-145) L Potassium Level 4.5 MMOL/L (3.5-5.1) 4.4 MMOL/L (3.5-5.1) Chloride Level 101 MMOL/L (98-107) 96 MMOL/L (98-107) L Carbon Dioxide Level 28 MMOL/L (21-32) 26 MMOL/L (21-32) Anion Gap 12 mmol/L (5-15) 11 mmol/L (5-15) Blood Urea Nitrogen 48 mg/dL (7-18) H 54 mg/dL (7-18) H Creatinine 3.9 MG/DL (0.55-1.30) H 4.4 MG/DL (0.55-1.30) H Estimat Glomerular Filtration Rate 15.6 mL/min (>60) 13.6 mL/min (>60) Glucose Level 160 MG/DL (74-106) H 154 MG/DL (74-106) H Calcium Level 8.7 MG/DL (8.5-10.1) 8.9 MG/DL (8.5-10.1) Total Bilirubin 2.0 MG/DL (0.2-1.0) H 1.9 MG/DL (0.2-1.0) H Direct Bilirubin 1.7 MG/DL (0.0-0.3) H 1.7 MG/DL (0.0-0.3) H Aspartate Amino Transf (AST/SGOT) 48 U/L (15-37) H 41 U/L (15-37) H Alanine Aminotransferase (ALT/SGPT) 31 U/L (12-78) 28 U/L (12-78) Alkaline Phosphatase 301 U/L (46-116) H 267 U/L (46-116) H Troponin I 0.064 ng/mL (0.000-0.056) Pro-B-Type Natriuretic Peptide 23225 pg/mL (0-125) H Total Protein 7.4 G/DL (6.4-8.2) 7.7 G/DL (6.4-8.2) Albumin 2.5 G/DL (3.4-5.0) L 2.4 G/DL (3.4-5.0) L Globulin 4.9 g/dL Albumin/Globulin Ratio 0.5 (1.0-2.7) L Arterial Blood pH 7.405 (7.350-7.450) Arterial Blood Partial Pressure CO2 43.5 mmHg (35.0-45.0) Arterial Blood Partial Pressure O2 89.2 mmHg (75.0-100.0) Arterial Blood HCO3 26.6 mmol/L (22.0-26.0) H Arterial Blood Oxygen Saturation 95.7 % (95-100) Arterial Blood Base Excess 1.7 (-2-2) Shai Test Positive Lactic Acid Level 1.80 mmol/L (0.4-2.0) Hemoglobin A1c 8.1 % (4.3-6.0) H Uric Acid 4.6 MG/DL (2.6-7.2) Phosphorus Level 5.4 MG/DL (2.5-4.9) H Magnesium Level 2.2 MG/DL (1.8-2.4) Gamma Glutamyl Transpeptidase 353 U/L (5-85) H Total Creatine Kinase 76 U/L (26-308) Triglycerides Level 95 MG/DL (30-150) Cholesterol Level 122 MG/DL (< 200) LDL Cholesterol 46 mg/dL (<100) HDL Cholesterol 30 MG/DL (40-60) L Cholesterol/HDL Ratio 4.1 (3.3-4.4) Thyroid Stimulating Hormone (TSH) 2.476 uiU/mL (0.358-3.740) Microbiology Date/Time Source Procedure Growth Status 02/21/19 21:45 Blood Blood Culture - Preliminary Resulted 02/21/19 21:30 Blood Blood Culture - Preliminary Resulted Height (Feet): 5 Height (Inches): 8.00 Weight (Pounds): 169 Medications Current Medications Medications (Trade) Dose Ordered Sig/Feli Route PRN Reason Start Time Stop Time Status Last Admin Dose Admin Acetaminophen (Tylenol) 650 mg Q4H PRN ORAL FEVER 02/21/19 20:45 03/23/19 20:44 Albuterol/ Ipratropium (Albuterol/ Ipratropium) 3 ml Q4H PRN HHN Shortness of Breath 02/21/19 20:45 02/26/19 20:44 Cefepime HCl 2 gm/ Dextrose 110 ml @ 220 mls/hr Q24H IV 02/22/19 00:00 03/01/19 00:00 02/22/19 00:27 Dextrose (Dextrose 50%) 25 ml Q30M PRN IV Hypoglycemia 02/21/19 20:45 03/23/19 20:44 Dextrose (Dextrose 50%) 50 ml Q30M PRN IV Hypoglycemia 02/21/19 20:45 03/23/19 20:44 Heparin Sodium (Porcine) (Heparin 5000 units/ml) 5,000 units EVERY 12 HOURS SUBQ 02/21/19 21:00 03/23/19 20:59 02/22/19 09:08 Insulin Aspart (NovoLOG) BEFORE MEALS AND HS SUBQ 02/21/19 21:00 03/23/19 20:59 02/22/19 06:46 Lorazepam (Ativan 2mg/ml 1ml) 2 mg Q3H PRN IV For Anxiety 02/21/19 20:45 02/28/19 20:44 Morphine Sulfate (Morphine Sulfate) 4 mg Q4H PRN IVP Severe Pain (Pain Scale 7-10) 02/21/19 20:45 02/28/19 20:44 02/22/19 00:43 Ondansetron HCl (Zofran) 4 mg Q6H PRN IVP Nausea & Vomiting 02/21/19 20:45 03/23/19 20:44 Pantoprazole (Protonix) 40 mg EVERY 12 HOURS IVP 02/22/19 10:30 03/24/19 10:29 Polyethylene Glycol (Miralax) 17 gm DAILYPRN PRN ORAL Constipation 02/21/19 20:45 03/23/19 20:44 Promethazine HCl/ Codeine (Phenergan with Codeine) 5 ml Q4H PRN ORAL For Cough 02/21/19 20:45 03/23/19 20:44 Vancomycin HCl (Vanco rx to dose) 1 ea DAILY PRN MISC Per rx protocol 02/22/19 10:15 03/24/19 10:14 Assessment/Plan Problem List: (1) Pleural effusion ICD Codes: J90 - Pleural effusion, not elsewhere classified SNOMED: 97693747 (2) Intractable abdominal pain ICD Codes: R10.9 - Unspecified abdominal pain SNOMED: 09542742 (3) ESRF (end stage renal failure) ICD Codes: N18.6 - End stage renal disease SNOMED: 99256633 (4) Diabetes mellitus ICD Codes: E11.9 - Type 2 diabetes mellitus without complications SNOMED: 90023055 (5) Hypertension ICD Codes: I10 - Essential (primary) hypertension SNOMED: 93011530 (6) Cognitive impairment ICD Codes: R41.89 - Other symptoms and signs involving cognitive functions and awareness SNOMED: 842865176 Assessment/Plan: symptomatic treatment titrate fio2 to sat of 92% check electrolytes HD by nephrology echocardiogram cardio evaluation sliding scale dvt prophylaxis. Maurizio Rose MD Feb 22, 2019 11:21
[2019-02-22] MEDS: Pantoprazole Inj IVP SCH ×2 (11:35→21:48)
[2019-02-22] MEDS ORDERED: Pantoprazole Inj IVP SCH (11:45)
[2019-02-22 12:00] VITALS: BP 99/58
--- NOTE | 2019-02-22 12:30 | NUR ---
NURSE NOTES: Requested Dr. Rose pain medication different from Morphine or low dose of morphine. No orders at this time.
--- NOTE | 2019-02-22 14:28 | NUR ---
CASE MANAGEMENT:INITIAL 63YR OLD MALE BIBA FROM [facility] IN [place] CC: MISSED DIALYSIS; DYSPNEA / RESP DISTRESS SI: ESRD ON HD . PLEURAL EFFUSION . DM . ELEVATED TROPONIN 97.5 60 20 100/68 99% ON 10L NC TROP 0.064 WBC 15.2 BUN 48 CREAT 3.9 TBIL/DBIL 2/1.7 3.9 BG 160 H/H 10.3/32.8 BNP 37942 ABG: HCO3 26.6 IS:COREG PO X1 NOVOLOG SQ X1 HEPARIN SQ X1 \:2E TELE UNIT DCP: BACK TO [facility] IN [place] WHEN MEDICALLY STABLE PLAN: HD TODAY 2D ECHO VENOUS DUPLEX CXR US ABD
--- NOTE | 2019-02-22 14:50 | NUR ---
NURSE NOTES: Pt. off restraints for 2 hrs. Taking mask out. Teaching done using [place] speaking healthcare personnel.
--- NOTE | 2019-02-22 15:10 | NUR ---
NURSE NOTES: Spouse at bedside trying to get Pt. out of bed by herself. Mask away from Pt. Teaching done regarding fall precautions, use of non rebreather mask, O2 sat normal and abnormal values.
--- NOTE | 2019-02-22 15:17 | Diagnostic Imaging Report ---
Indication: Shortness of breath Technique: One view of the chest Comparison: none Findings: There are bilateral pleural effusions. There is a right jugular tunneled dialysis catheter. There is equivocal mild interstitial congestion. The heart size is probably upper limits of normal. Impression: Bilateral pleural effusions Equivocal mild interstitial congestion Other findings as noted
[2019-02-22 16:00] VITALS: BP 107/61
[2019-02-22] MEDS: Sucralfate 1gm tab ORAL SCH ×4 (16:13→21:50)
--- NOTE | 2019-02-22 19:25 | NUR ---
HAND-OFF: Report given to KRISTEN Holley. Pt. sleepy. Family at bedside.
--- NOTE | 2019-02-22 19:37 | NUR ---
NURSE NOTES: Received report from KRISTEN Stewart. Patient is lethargic, but arousable to pain stimulation. No signs of acute distress or pain noted at this time. On 15L non-rebreather mask. at bedside. AOx1; able to make needs known to a limited degree. Checked IV site; patent and flushed. No erythema, bleeding, or infiltration noted. Right upper chest permcath noted. Bed at lowest position, brakes on, siderails up x3. Call light within reach. Will continue to monitor.
[2019-02-22 20:00] VITALS: BP 107/67
--- NOTE | 2019-02-22 22:07 | NUR ---
NURSE NOTES: Called Dr. oRse to notify him that patient is difficult to arouse and lethargic. Awaiting callback.
[2019-02-23] VITALS: BP 102/56
[2019-02-23] MEDS: Cefepime HCl 2 GM in D5W 110 ML IV SCH (01:15)
[2019-02-23 04:00] VITALS: BP 105/57
[2019-02-23] MEDS: NovoLOG Insulin Flexpen SUBQ SCH ×4 (06:03→21:06)
--- NOTE | 2019-02-23 07:20 | NUR ---
NURSE NOTES: Report received from KRISTEN Holley. Patient sleeping comfortably on non rebreather mask. at bedside. Reminder given not to take off mask. O2 sat 95 at this time. L AC 20g IV SL, site intact. Bed on lowest position, side rails upx2, brakes engaged, alarm on. Call light within easy reach.
--- NOTE | 2019-02-23 07:21 | NUR ---
HAND-OFF: Report given to KRISTEN Stewart. Patient is asleep lying semi-romero's; resting comfortably. Able to spontaneously opens eyes. at bedside. In stable condition.
[2019-02-23 08:00] VITALS: BP 86/59
--- NOTE | 2019-02-23 08:55 | NUR ---
NURSE NOTES: R hand edema noted. Elevated on pillow. Sign at head of the bed no BP on R hand.
[2019-02-23] MEDS: Heparin 5000 units/ml inj SUBQ SCH ×3 (09:00→20:42)
[2019-02-23 09:04] LABS: HEMATOCRIT 31.9 % (42.0-52.0); HEMOGLOBIN 9.8 G/DL (14.2-18.0); MEAN CORPUSCULAR VOLUME 97 FL (80-99); PLATELET COUNT 160 K/UL (150-450); RED BLOOD COUNT 3.31 M/UL (4.70-6.10); RED CELL DISTRIBUTION WIDTH 20.2 % (11.6-14.8); WHITE BLOOD COUNT 13.2 K/UL (4.8-10.8)
--- NOTE | 2019-02-23 09:09 | Pulmonology Progress Note ---
Assessment/Plan Problems: (1) Sepsis (2) Gram-positive bacteremia (3) Pleural effusion (4) Intractable abdominal pain (5) ESRF (end stage renal failure) (6) Diabetes mellitus (7) Hypertension (8) Cognitive impairment Assessment/Plan BC positive for Staph aureus symptomatic treatment titrate fio2 to sat of 92% check electrolytes HD by nephrology echocardiogram cardio evaluation still pending sliding scale dvt prophylaxis. Subjective ROS Limited/Unobtainable: Yes Allergies: Coded Allergies: No Known Allergies (Unverified , 01/29/19) Objective Last 24 Hour Vital Signs Date Time Temp Pulse Resp B/P (MAP) Pulse Ox O2 Delivery O2 Flow Rate FiO2 02/23/19 08:00 15.0 02/23/19 04:00 15.0 02/23/19 04:00 97.3 64 21 105/57 (73) 95 02/23/19 04:00 61 02/23/19 00:00 98.0 62 23 102/56 (71) 92 02/23/19 00:00 15.0 02/23/19 00:00 62 02/22/19 21:00 Non-Rebreather 15.0 02/22/19 20:00 15.0 02/22/19 20:00 98.3 63 20 107/67 (80) 95 02/22/19 20:00 61 02/22/19 16:46 97.8 02/22/19 16:00 15.0 02/22/19 16:00 98.1 61 20 107/61 (76) 95 02/22/19 16:00 64 02/22/19 12:00 15.0 02/22/19 12:00 97.8 63 20 99/58 (72) 97 Intake and Output 02/22/19 02/23/19 19:00 07:00 Intake Total 420 ml 110 ml Output Total 2000 ml Balance -1580 ml 110 ml Intake Oral 420 ml IV Total 110 ml Output Hemodialysis UF 2000 ml # Voids 1 2 # Bowel Movements 1 1 General Appearance: WD/WN HEENT: normocephalic Respiratory/Chest: chest wall non-tender, accessory muscle use, crackles/rales Cardiovascular: normal peripheral pulses, normal rate Abdomen: normal bowel sounds, soft, non tender Extremities: no cyanosis Skin: no rash 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 Lymphatic: no groin adenopathy Musculoskeletal: normal muscle bulk Microbiology Date/Time Source Procedure Growth Status 02/21/19 21:45 Blood Blood Culture - Preliminary Staphylococcus Aureus Resulted 02/21/19 21:30 Blood Blood Culture - Preliminary Staphylococcus Aureus Resulted 02/23/19 00:47 Nasal Nares - Final Complete 02/23/19 00:47 Nasal Nares - Final Complete Laboratory Tests 02/23/19 08:10: White Blood Count [Pending], Red Blood Count [Pending], Hemoglobin [Pending], Hematocrit [Pending], Mean Corpuscular Volume [Pending], Mean Corpuscular Hemoglobin [Pending], Mean Corpuscular Hemoglobin Concent [Pending], Red Cell Distribution Width [Pending], Platelet Count [Pending], Mean Platelet Volume [ Pending], Neutrophils (%) (Auto) [Pending], Lymphocytes (%) (Auto) [Pending], Monocytes (%) (Auto) [Pending], Eosinophils (%) (Auto) [Pending], Basophils (%) (Auto) [Pending], Sodium Level [Pending], Potassium Level [Pending], Chloride Level [Pending], Carbon Dioxide Level [Pending], Blood Urea Nitrogen [Pending], Creatinine [Pending], Estimat Glomerular Filtration Rate [Pending], Glucose Level [Pending], Uric Acid [Pending], Calcium Level [Pending], Phosphorus Level [Pending], Magnesium Level [Pending], Total Bilirubin [Pending], Aspartate Amino Transf (AST/SGOT) [Pending], Alanine Aminotransferase (ALT/SGPT) [Pending] , Alkaline Phosphatase [Pending], Troponin I [Pending], C-Reactive Protein, Quantitative [Pending], Pro-B-Type Natriuretic Peptide [Pending], Total Protein [Pending], Albumin [Pending], Globulin [Pending], Random Vancomycin Level [ Pending] Current Medications Medications (Trade) Dose Ordered Sig/Feli Route PRN Reason Start Time Stop Time Status Last Admin Dose Admin Acetaminophen (Tylenol) 650 mg Q4H PRN ORAL FEVER 02/21/19 20:45 03/23/19 20:44 Albuterol/ Ipratropium (Albuterol/ Ipratropium) 3 ml Q4H PRN HHN Shortness of Breath 02/21/19 20:45 02/26/19 20:44 Cefepime HCl 2 gm/ Dextrose 110 ml @ 220 mls/hr Q24H IV 02/22/19 00:00 03/01/19 00:00 02/23/19 01:15 Chlorhexidine Gluconate (Kiara-Hex 2%) 1 applic DAILY@2000 TOPIC 02/23/19 20:00 03/25/19 19:59 Dextrose (Dextrose 50%) 25 ml Q30M PRN IV Hypoglycemia 02/21/19 20:45 03/23/19 20:44 Dextrose (Dextrose 50%) 50 ml Q30M PRN IV Hypoglycemia 02/21/19 20:45 03/23/19 20:44 Heparin Sodium (Porcine) (Heparin 5000 units/ml) 5,000 units EVERY 12 HOURS SUBQ 02/21/19 21:00 03/23/19 20:59 02/22/19 09:08 Insulin Aspart (NovoLOG) BEFORE MEALS AND HS SUBQ 02/21/19 21:00 03/23/19 20:59 02/22/19 06:46 Lorazepam (Ativan 2mg/ml 1ml) 2 mg Q3H PRN IV For Anxiety 02/21/19 20:45 02/28/19 20:44 Morphine Sulfate (Morphine Sulfate) 4 mg Q4H PRN IVP Severe Pain (Pain Scale 7-10) 02/21/19 20:45 02/28/19 20:44 02/22/19 16:16 Ondansetron HCl (Zofran) 4 mg Q6H PRN IVP Nausea & Vomiting 02/21/19 20:45 03/23/19 20:44 Pantoprazole (Protonix) 40 mg EVERY 12 HOURS IVP 02/22/19 10:30 03/24/19 10:29 02/22/19 21:48 Polyethylene Glycol (Miralax) 17 gm DAILYPRN PRN ORAL Constipation 02/21/19 20:45 03/23/19 20:44 Promethazine HCl/ Codeine (Phenergan with Codeine) 5 ml Q4H PRN ORAL For Cough 02/21/19 20:45 03/23/19 20:44 Sucralfate (Carafate) 1 gm FOUR TIMES A DAY ORAL 02/22/19 13:00 03/24/19 12:59 02/22/19 16:13 Vancomycin HCl (Vanco rx to dose) 1 ea DAILY PRN MISC Per rx protocol 02/22/19 10:15 03/24/19 10:14 Maurizio Rose MD Feb 23, 2019 09:09
[2019-02-23] MEDS: Sucralfate 1gm tab ORAL SCH (09:24)
[2019-02-23] MEDS: Pantoprazole Inj IVP SCH ×2 (09:24→21:03)
[2019-02-23 09:36] LABS: ALANINE AMINOTRANSFERASE 25 U/L (12-78); ALBUMIN 2.3 G/DL (3.4-5.0); ALBUMIN/GLOBULIN RATIO 0.5 (1.0-2.7); ALKALINE PHOSPHATASE 200 U/L (46-116); ANION GAP 10 mmol/L (5-15); ASPARTATE AMINO TRANSFERASE 34 U/L (15-37); BILIRUBIN,TOTAL 1.6 MG/DL (0.2-1.0); BLOOD UREA NITROGEN 53 mg/dL (7-18); CARBON DIOXIDE 27 MMOL/L (21-32); CHLORIDE 102 MMOL/L (98-107); CREATININE 4.2 MG/DL (0.55-1.30); PHOSPHORUS 5.7 MG/DL (2.5-4.9); POTASSIUM 4.8 MMOL/L (3.5-5.1); SODIUM 139 MMOL/L (136-145)
--- NOTE | 2019-02-23 10:13 | NUR ---
NURSE NOTES: Pt.'s low BP communicated with .
--- NOTE | 2019-02-23 10:25 | Diagnostic Imaging Report ---
EXAM: XR Chest, 1 View CLINICAL HISTORY: DYSPNEA TECHNIQUE: Frontal view of the chest. COMPARISON: Chest radiograph on 02/21/2019 FINDINGS: Hardware: Right dual-lumen central venous catheter which terminates in the region of the SVC. Lungs/pleura: Similar moderate right greater than left pleural effusions with associated atelectasis versus pneumonia. Pulmonary edema and vasculature congestion. Heart/mediastinum: Stable enlargement of the cardiomediastinal silhouette. Soft tissues: Unremarkable. Bones: No acute fracture. Degenerative changes of the acromioclavicular joints and spine. Upper abdomen: Normal. IMPRESSION: Similar moderate right greater than left pleural effusions with associated atelectasis versus pneumonia. Pulmonary edema and vasculature congestion.
--- NOTE | 2019-02-23 11:21 | NUR ---
NURSE NOTES: Left off restraints since 819. Patient awakens by shaking. Drowsy. BP communicated with Dr. Rose and message left to Dr. Lara.
[2019-02-23 11:27] VITALS: BP 97/61
[2019-02-23] MEDS ORDERED: Sucralfate 1gm tab ORAL SCH (11:30)
[2019-02-23] MEDS ORDERED: Morphine Sulfate 2mg/ml Inj(IV/IM USE ONLY) IVP PRN ×2 (11:45)
[2019-02-23 11:55] LABS: BILIRUBIN,DIRECT 1.3 MG/DL (0.0-0.3)
[2019-02-23] MEDS ORDERED: Morphine Sulfate 4mg/ml Inj (IV USE ONLY) IVP PRN (12:00)
[2019-02-23] MEDS ORDERED: Vancomycin 1 GM in NS 275 ML IVPB SCH (12:00)
--- NOTE | 2019-02-23 12:16 | NUR ---
NURSE NOTES: Informed Dr. Rose Pt's troponin level. No new orders at this time.
--- NOTE | 2019-02-23 15:47 | Nephrology Progress Note ---
Assessment/Plan Problem List: (1) ESRF (end stage renal failure) (2) Diabetes mellitus (3) Pleural effusion (4) Sepsis (5) Anemia (6) Bradycardia Assessment ESRD - Has right chest permacath Anemia Leukocytosis Pleural effusion Bradycardia troponin elevation cardiomyopathy . Plan Antibiotics HD as needed 2D echo 40% start midodrine Subjective ROS Limited/Unobtainable: No Constitutional: Reports: malaise, weakness Objective Objective Last 24 Hour Vital Signs Date Time Temp Pulse Resp B/P (MAP) Pulse Ox O2 Delivery O2 Flow Rate FiO2 02/23/19 12:00 63 02/23/19 12:00 15.0 02/23/19 11:27 97.1 60 20 97/61 (73) 97 02/23/19 09:00 Non-Rebreather 15.0 02/23/19 08:00 97.5 59 18 86/59 (68) 95 02/23/19 08:00 59 02/23/19 08:00 15.0 02/23/19 04:00 15.0 02/23/19 04:00 97.3 64 21 105/57 (73) 95 02/23/19 04:00 61 02/23/19 00:00 98.0 62 23 102/56 (71) 92 02/23/19 00:00 15.0 02/23/19 00:00 62 02/22/19 21:00 Non-Rebreather 15.0 02/22/19 20:00 15.0 02/22/19 20:00 98.3 63 20 107/67 (80) 95 02/22/19 20:00 61 02/22/19 16:46 97.8 02/22/19 16:00 15.0 02/22/19 16:00 98.1 61 20 107/61 (76) 95 02/22/19 16:00 64 Intake and Output 02/22/19 02/23/19 19:00 07:00 Intake Total 420 ml 110 ml Output Total 2000 ml Balance -1580 ml 110 ml Intake Oral 420 ml IV Total 110 ml Output Hemodialysis UF 2000 ml # Voids 1 2 # Bowel Movements 1 1 Laboratory Tests 02/23/19 08:10: White Blood Count 13.2H, Red Blood Count 3.31L, Hemoglobin 9.8L, Hematocrit 31.9L, Mean Corpuscular Volume 97, Mean Corpuscular Hemoglobin 29.8, Mean Corpuscular Hemoglobin Concent 30.8L, Red Cell Distribution Width 20.2H, Platelet Count 160, Mean Platelet Volume 6.9, Neutrophils (%) (Auto) , Lymphocytes (%) (Auto) , Monocytes (%) (Auto) , Eosinophils (%) (Auto) , Basophils (%) (Auto) , Differential Total Cells Counted 100, Neutrophils % ( Manual) 89H, Lymphocytes % (Manual) 5L, Monocytes % (Manual) 5, Eosinophils % ( Manual) 0, Basophils % (Manual) 0, Band Neutrophils 1, Platelet Estimate Adequate, Platelet Morphology Normal, Polychromasia 1+, Hypochromasia 1+, Anisocytosis 2+, Macrocytosis 1+, Sodium Level 139, Potassium Level 4.8, Chloride Level 102, Carbon Dioxide Level 27, Anion Gap 10, Blood Urea Nitrogen 53H, Creatinine 4.2H, Estimat Glomerular Filtration Rate 14.3, Glucose Level 107H, Uric Acid 4.7, Calcium Level 9.0, Phosphorus Level 5.7H, Magnesium Level 2.2, Total Bilirubin 1.6H, Direct Bilirubin 1.3H, Aspartate Amino Transf (AST/ SGOT) 34, Alanine Aminotransferase (ALT/SGPT) 25, Alkaline Phosphatase 200H, Troponin I 0.104H, C-Reactive Protein, Quantitative 22.1H, Pro-B-Type Natriuretic Peptide 76274B, Total Protein 7.4, Albumin 2.3L, Globulin 5.1, Albumin/Globulin Ratio 0.5L, Random Vancomycin Level 7.7 Height (Feet): 5 Height (Inches): 8.00 Weight (Pounds): 164 General Appearance: no apparent distress, lethargic Cardiovascular: bradycardia Respiratory/Chest: decreased breath sounds Abdomen: distended Magan Lara MD Feb 23, 2019 15:47
[2019-02-23 16:00] VITALS: BP 97/56
[2019-02-23] MEDS: Megace 400mg/10ml Susp ORAL SCH (17:40)
[2019-02-23] MEDS: Midodrine 10mg tab ORAL SCH (17:40)
[2019-02-23] MEDS ORDERED: Docusate 100mg cap ORAL SCH (18:00)
--- NOTE | 2019-02-23 19:31 | NUR ---
HAND-OFF: Report given to KRISTEN Holley. O2 sat 94. on Venturi mask. Plan of care endorsed.
--- NOTE | 2019-02-23 19:46 | NUR ---
NURSE NOTES: Received report from KRISTEN Stewart. Patient is asleep lying semi-romero's; resting comfortably. No signs of acute distress or pain noted at this time. On 55% 14L Venturi mask saturating at 94%. at bedside. AOx1; able to make needs known to a limited degree. Checked IV site; patent and flushed. No erythema, bleeding, or infiltration noted. Right upper chest permcath noted. Bed at lowest position, brakes on, siderails up x3. Call light within reach. Will continue to monitor.
[2019-02-23 20:00] VITALS: BP 92/58
[2019-02-23] MEDS: Dyna-Hex 2% Top Sol 2oz TOPIC SCH (21:02)
[2019-02-24] VITALS: BP 106/58
[2019-02-24] MEDS: Cefepime HCl 2 GM in D5W 110 ML IV SCH (00:46)
--- NOTE | 2019-02-24 03:18 | NUR ---
NURSE NOTES: Administered Tylenol per patient's request for pain.
[2019-02-24 04:00] VITALS: BP 95/56
--- NOTE | 2019-02-24 05:38 | NUR ---
NURSE NOTES: Called Dr. Garsia regarding patient's blood culture result of being positive for MRSA. Awaiting callback for any further orders.
[2019-02-24] MEDS: Heparin 5000 units/ml inj SUBQ SCH ×3 (05:42→22:00)
[2019-02-24] MEDS: NovoLOG Insulin Flexpen SUBQ SCH ×4 (06:41→21:00)
[2019-02-24 06:48] LABS: HEMATOCRIT 32.2 % (42.0-52.0); MEAN CORPUSCULAR VOLUME 96 FL (80-99); PLATELET COUNT 136 K/UL (150-450); RED BLOOD COUNT 3.34 M/UL (4.70-6.10); RED CELL DISTRIBUTION WIDTH 19.6 % (11.6-14.8); WHITE BLOOD COUNT 11.8 K/UL (4.8-10.8)
--- NOTE | 2019-02-24 07:15 | NUR ---
NURSE NOTES: Report received from KRISTEN Holley. Pt. on venturi mask on 14L/55%, saturating at 95%. L AC 20g IV on TKO, site intact. Bed on lowest position, side rails upxe, brakes engaged, alarm on. Call light within easy reach.
--- NOTE | 2019-02-24 07:15 | NUR ---
HAND-OFF: Report given to KRISTEN Stewart. Patient is asleep lying semi-romero's; resting comfortably. On 14L Venturi mask saturating at 96%. In stable condition.
[2019-02-24 07:30] LABS: ALANINE AMINOTRANSFERASE 23 U/L (12-78); ALBUMIN 2.4 G/DL (3.4-5.0); ALBUMIN/GLOBULIN RATIO 0.5 (1.0-2.7); ALKALINE PHOSPHATASE 182 U/L (46-116); ANION GAP 14 mmol/L (5-15); ASPARTATE AMINO TRANSFERASE 29 U/L (15-37); BILIRUBIN,TOTAL 1.9 MG/DL (0.2-1.0); BLOOD UREA NITROGEN 72 mg/dL (7-18); CALCIUM 8.5 MG/DL (8.5-10.1); CARBON DIOXIDE 23 MMOL/L (21-32); CHLORIDE 102 MMOL/L (98-107); CREATININE 5.1 MG/DL (0.55-1.30); PHOSPHORUS 6.1 MG/DL (2.5-4.9); POTASSIUM 4.8 MMOL/L (3.5-5.1); SODIUM 139 MMOL/L (136-145)
[2019-02-24 08:00] VITALS: BP 112/66
--- NOTE | 2019-02-24 08:10 | NUR ---
NURSE NOTES: skin intact except for BLE dry and flakey skin.
[2019-02-24 09:01] LABS: BILIRUBIN,DIRECT 1.5 MG/DL (0.0-0.3)
--- NOTE | 2019-02-24 09:11 | Diagnostic Imaging Report ---
Indication: Abnormal liver function tests. Abnormal renal function tests, history of dialysis dependent renal failure Technique: Das-scale and duplex images of the upper abdomen were obtained Comparison: none Findings: Gallbladder demonstrates wall thickening, wall thickness up to 5 mm. However, no gallstones are demonstrated. Sonographic Julian's sign is negative. Common bile duct measures 3 mm in diameter. No intrahepatic biliary ductal dilatation. Liver demonstrates normal echogenicity, no focal abnormality. Portal vein and hepatic veins are patent. Pancreas is unremarkable. Spleen is unremarkable. Left kidney measures 11.9 cm in length. Right kidney measures 11 point cm length. Both kidneys demonstrate slightly increased echogenicity. There is no hydronephrosis. No focal abnormality . Abdominal aorta is partially obscured by bowel gas, visualized portions are non-aneurysmal . There are bilateral pleural effusions demonstrated Impression: Thickened gallbladder wall. As there are no gallstones, this is probably due to hemodynamic derangements, possibly related to stated clinical history of renal failure. The liver, the possibility of acute acalculous cholecystitis or acute cholecystitis secondary to occult stone disease should also be considered, and nuclear medicine hepatobiliary scan should be considered if there is high clinical suspicion Negative for dilated bile ducts Mildly increased renal echogenicity, presumably related to stated history of chronic renal failure. Negative for hydronephrosis Bilateral pleural effusions Note inability to visualize portions of the abdominal aorta
--- NOTE | 2019-02-24 09:11 | Nephrology Progress Note ---
Assessment/Plan Problem List: (1) ESRF (end stage renal failure) (2) Sepsis Assessment: ? line related (3) Diabetes mellitus (4) Pleural effusion (5) Anemia (6) Bradycardia Assessment ESRD - Has right chest permacath Anemia Leukocytosis Pleural effusion Bradycardia troponin elevation cardiomyopathy . Plan check ABG Antibiotics HD as needed 2D echo 40% start midodrine Subjective ROS Limited/Unobtainable: No Constitutional: Reports: malaise, weakness Objective Objective Last 24 Hour Vital Signs Date Time Temp Pulse Resp B/P (MAP) Pulse Ox O2 Delivery O2 Flow Rate FiO2 02/24/19 08:00 96.8 60 20 112/66 (81) 95 02/24/19 08:00 14.0 02/24/19 04:00 14.0 02/24/19 04:00 97.9 60 20 95/56 (69) 93 02/24/19 04:00 58 02/24/19 00:00 60 02/24/19 00:00 97.5 60 20 106/58 (74) 93 02/24/19 00:00 14.0 02/23/19 21:00 Venturi Mask 14.0 02/23/19 20:00 97.5 61 20 92/58 (69) 92 02/23/19 20:00 60 02/23/19 20:00 14.0 02/23/19 16:30 63 02/23/19 16:00 97.9 62 22 97/56 (70) 94 02/23/19 16:00 15.0 02/23/19 12:00 63 02/23/19 12:00 15.0 02/23/19 11:27 97.1 60 20 97/61 (73) 97 Intake and Output 02/23/19 02/24/19 19:00 07:00 Intake Total 110 ml Output Total 450 ml Balance -450 ml 110 ml IV Total 110 ml Output Urine Total 450 ml # Voids 1 2 # Bowel Movements 1 Current Medications Medications (Trade) Dose Ordered Sig/Feli Route PRN Reason Start Time Stop Time Status Last Admin Dose Admin Acetaminophen (Tylenol) 650 mg Q4H PRN ORAL FEVER 02/21/19 20:45 03/23/19 20:44 02/24/19 03:18 Albuterol/ Ipratropium (Albuterol/ Ipratropium) 3 ml Q4H PRN HHN Shortness of Breath 02/21/19 20:45 02/26/19 20:44 Cefepime HCl 2 gm/ Dextrose 110 ml @ 220 mls/hr Q24H IV 02/22/19 00:00 03/01/19 00:00 02/24/19 00:46 Chlorhexidine Gluconate (Kiara-Hex 2%) 1 applic DAILY@2000 TOPIC 02/23/19 20:00 03/25/19 19:59 02/23/19 21:02 Dextrose (Dextrose 50%) 25 ml Q30M PRN IV Hypoglycemia 02/21/19 20:45 03/23/19 20:44 Dextrose (Dextrose 50%) 50 ml Q30M PRN IV Hypoglycemia 02/21/19 20:45 03/23/19 20:44 Docusate Sodium (Colace) 100 mg TWICE A DAY ORAL 02/23/19 18:00 03/25/19 17:59 02/23/19 17:40 Heparin Sodium (Porcine) (Heparin 5000 units/ml) 5,000 units EVERY 8 HOURS SUBQ 02/23/19 16:00 03/25/19 15:59 Insulin Aspart (NovoLOG) BEFORE MEALS AND HS SUBQ 02/21/19 21:00 03/23/19 20:59 02/24/19 06:41 Megestrol Acetate (Megace) 400 mg TWICE A DAY ORAL 02/23/19 18:00 03/25/19 17:59 02/23/19 17:40 Midodrine (Pro-Amatine) 10 mg THREE TIMES A DAY ORAL 02/23/19 18:00 03/25/19 17:59 02/23/19 17:40 Ondansetron HCl (Zofran) 4 mg Q6H PRN IVP Nausea & Vomiting 02/21/19 20:45 03/23/19 20:44 Pantoprazole (Protonix) 40 mg EVERY 12 HOURS IVP 02/22/19 10:30 03/24/19 10:29 02/23/19 21:03 Polyethylene Glycol (Miralax) 17 gm DAILYPRN PRN ORAL Constipation 02/21/19 20:45 03/23/19 20:44 Promethazine HCl/ Codeine (Phenergan with Codeine) 5 ml Q4H PRN ORAL For Cough 02/21/19 20:45 03/23/19 20:44 Sevelamer Carbonate (Renvela) 800 mg THREE TIMES A DAY ORAL 02/23/19 18:00 03/25/19 17:59 02/23/19 17:40 Vancomycin HCl (Vanco rx to dose) 1 ea DAILY PRN MISC Per rx protocol 02/22/19 10:15 03/24/19 10:14 Vancomycin HCl 1 gm/Sodium Chloride 275 ml @ 183.333 mls/hr ONCE IVPB 02/23/19 12:00 02/28/19 11:59 02/23/19 12:36 Laboratory Tests 02/24/19 06:15: White Blood Count 11.8H, Red Blood Count 3.34L, Hemoglobin 10.0L, Hematocrit 32.2L, Mean Corpuscular Volume 96, Mean Corpuscular Hemoglobin 29.8, Mean Corpuscular Hemoglobin Concent 30.9L, Red Cell Distribution Width 19.6H, Platelet Count 136L, Mean Platelet Volume 6.7, Neutrophils (%) (Auto) , Lymphocytes (%) (Auto) , Monocytes (%) (Auto) , Eosinophils (%) (Auto) , Basophils (%) (Auto) , Differential Total Cells Counted 100, Neutrophils % ( Manual) 87H, Lymphocytes % (Manual) 7L, Monocytes % (Manual) 6, Eosinophils % ( Manual) 0, Basophils % (Manual) 0, Band Neutrophils 0, Platelet Estimate DecreasedL, Platelet Morphology Normal, Polychromasia 1+, Hypochromasia 1+, Anisocytosis 2+, Erythrocyte Sedimentation Rate 62H, Sodium Level 139, Potassium Level 4.8, Chloride Level 102, Carbon Dioxide Level 23, Anion Gap 14, Blood Urea Nitrogen 72H, Creatinine 5.1H, Estimat Glomerular Filtration Rate 11.4, Glucose Level 145H, Uric Acid 6.2, Calcium Level 8.5, Phosphorus Level 6.1H, Magnesium Level 2.5H, Total Bilirubin 1.9H, Direct Bilirubin 1.5H, Aspartate Amino Transf (AST/SGOT) 29, Alanine Aminotransferase (ALT/SGPT) 23, Alkaline Phosphatase 182H, C-Reactive Protein, Quantitative 15.2H, Pro-B-Type Natriuretic Peptide 74571C, Total Protein 7.4, Albumin 2.4L, Globulin 5.0, Albumin/Globulin Ratio 0.5L, Free Thyroxine 0.89, Free Triiodothyronine 1.3L Height (Feet): 5 Height (Inches): 8.00 Weight (Pounds): 161 General Appearance: no apparent distress Cardiovascular: bradycardia Respiratory/Chest: decreased breath sounds Abdomen: distended Magan Lara MD Feb 24, 2019 09:11
[2019-02-24] MEDS: Midodrine 10mg tab ORAL SCH ×3 (09:48→17:41)
[2019-02-24] MEDS: Megace 400mg/10ml Susp ORAL SCH ×2 (09:49→17:42)
[2019-02-24] MEDS: Pantoprazole Inj IVP SCH ×2 (09:49→21:31)
--- NOTE | 2019-02-24 10:10 | NUR ---
NURSE NOTES: Pt. refused to eat. notified. BS WNL.
--- NOTE | 2019-02-24 10:24 | Infectious Diseases Prog Note ---
Assessment/Plan Assessment/Plan 63 yo male with PMHx of ESRD on HD, DM, and HTN who was sent to the ED from his care home for SOB. Sepsis Bacteremia Blood Cx 02/21/19 - MRSA Pos 2/2 Blood Cx 02/24/19 - Pend TTE 02/22/19 - No sigh of vegetations Respiratory failure Likely due to PNA vs Plerual effusions CXR showed large bilateral pleural effusions No fever Leukocytosis ESRD on HD DM HTN PLAN - Continue Cefepime #3/7 and Vancomycin #3 - f/u repeat Cx cultures - Get MARJAN - Monitor CBC and Temps Thank you for this consult. [facility] will continue to follow the patient with you during this hospitalization. Subjective Allergies: Coded Allergies: No Known Allergies (Unverified , 01/29/19) Subjective Blood Cx MRSA Pos Afebrile Leukcytosis resolving Objective Vital Signs Last 24 Hour Vital Signs Date Time Temp Pulse Resp B/P (MAP) Pulse Ox O2 Delivery O2 Flow Rate FiO2 02/24/19 08:00 96.8 60 20 112/66 (81) 95 02/24/19 08:00 14.0 02/24/19 04:00 14.0 02/24/19 04:00 97.9 60 20 95/56 (69) 93 02/24/19 04:00 58 02/24/19 00:00 60 02/24/19 00:00 97.5 60 20 106/58 (74) 93 02/24/19 00:00 14.0 02/23/19 21:00 Venturi Mask 14.0 02/23/19 20:00 97.5 61 20 92/58 (69) 92 02/23/19 20:00 60 02/23/19 20:00 14.0 02/23/19 16:30 63 02/23/19 16:00 97.9 62 22 97/56 (70) 94 02/23/19 16:00 15.0 02/23/19 12:00 63 02/23/19 12:00 15.0 02/23/19 11:27 97.1 60 20 97/61 (73) 97 Height (Feet): 5 Height (Inches): 8.00 Weight (Pounds): 161 Objective Gen: Confused, On NRB 15L HEENT: NCAT, MMM, EOMI LUNGS: CTAB, No W CARDS: RRR, S1, S2 ABD: Soft, NT, ND Microbiology Date/Time Source Procedure Growth Status 02/21/19 21:45 Blood Blood Culture - Final Staphylococcus Aureus - Mrsa Complete 02/21/19 21:30 Blood Blood Culture - Final Staphylococcus Aureus - Mrsa Complete 02/23/19 00:47 Nasal Nares - Final Complete 02/23/19 00:47 Nasal Nares - Final Complete 02/21/19 22:00 Nasal Nares MRSA Culture - Final NO METHICILLIN RESISTANT STAPH AUREUS... Complete 02/21/19 22:00 Rectum - Final NO CARBAPENEM-RESISTANT ENTEROBACTERI... Complete 02/21/19 22:00 Rectum VRE Culture - Final NO VANCOMYCIN RESISTANT ENTEROCOCCUS ... Complete Laboratory Tests Test 02/24/19 06:15 02/24/19 08:12 White Blood Count 11.8 K/UL (4.8-10.8) H Red Blood Count 3.34 M/UL (4.70-6.10) L Hemoglobin 10.0 G/DL (14.2-18.0) L Hematocrit 32.2 % (42.0-52.0) L Mean Corpuscular Volume 96 FL (80-99) Mean Corpuscular Hemoglobin 29.8 PG (27.0-31.0) Mean Corpuscular Hemoglobin Concent 30.9 G/DL (32.0-36.0) L Red Cell Distribution Width 19.6 % (11.6-14.8) H Platelet Count 136 K/UL (150-450) L Mean Platelet Volume 6.7 FL (6.5-10.1) Neutrophils (%) (Auto) % (45.0-75.0) Lymphocytes (%) (Auto) % (20.0-45.0) Monocytes (%) (Auto) % (1.0-10.0) Eosinophils (%) (Auto) % (0.0-3.0) Basophils (%) (Auto) % (0.0-2.0) Differential Total Cells Counted 100 Neutrophils % (Manual) 87 % (45-75) H Lymphocytes % (Manual) 7 % (20-45) L Monocytes % (Manual) 6 % (1-10) Eosinophils % (Manual) 0 % (0-3) Basophils % (Manual) 0 % (0-2) Band Neutrophils 0 % (0-8) Platelet Estimate Decreased L Platelet Morphology Normal Polychromasia 1+ Hypochromasia 1+ Anisocytosis 2+ Erythrocyte Sedimentation Rate 62 MM/HR (0-20) H Sodium Level 139 MMOL/L (136-145) Potassium Level 4.8 MMOL/L (3.5-5.1) Chloride Level 102 MMOL/L (98-107) Carbon Dioxide Level 23 MMOL/L (21-32) Anion Gap 14 mmol/L (5-15) Blood Urea Nitrogen 72 mg/dL (7-18) H Creatinine 5.1 MG/DL (0.55-1.30) H Estimat Glomerular Filtration Rate 11.4 mL/min (>60) Glucose Level 145 MG/DL (74-106) H Uric Acid 6.2 MG/DL (2.6-7.2) Calcium Level 8.5 MG/DL (8.5-10.1) Phosphorus Level 6.1 MG/DL (2.5-4.9) H Magnesium Level 2.5 MG/DL (1.8-2.4) H Total Bilirubin 1.9 MG/DL (0.2-1.0) H Direct Bilirubin 1.5 MG/DL (0.0-0.3) H Aspartate Amino Transf (AST/SGOT) 29 U/L (15-37) Alanine Aminotransferase (ALT/SGPT) 23 U/L (12-78) Alkaline Phosphatase 182 U/L (46-116) H C-Reactive Protein, Quantitative 15.2 mg/dL (0.00-0.90) H Pro-B-Type Natriuretic Peptide 37712 pg/mL (0-125) H Total Protein 7.4 G/DL (6.4-8.2) Albumin 2.4 G/DL (3.4-5.0) L Globulin 5.0 g/dL Albumin/Globulin Ratio 0.5 (1.0-2.7) L Free Thyroxine 0.89 NG/DL (0.76-1.46) Free Triiodothyronine 1.3 pg/mL (2.3-4.2) L Arterial Blood pH 7.330 (7.350-7.450) Arterial Blood Partial Pressure CO2 48.5 mmHg (35.0-45.0) H Arterial Blood Partial Pressure O2 76.8 mmHg (75.0-100.0) Arterial Blood HCO3 25.0 mmol/L (22.0-26.0) Arterial Blood Oxygen Saturation 93.1 % (95-100) L Arterial Blood Base Excess -1.2 (-2-2) Shai Test Positive Current Medications Medications (Trade) Dose Ordered Sig/Feli Route PRN Reason Start Time Stop Time Status Last Admin Dose Admin Acetaminophen (Tylenol) 650 mg Q4H PRN ORAL FEVER 02/21/19 20:45 03/23/19 20:44 02/24/19 03:18 Albuterol/ Ipratropium (Albuterol/ Ipratropium) 3 ml Q4H PRN HHN Shortness of Breath 02/21/19 20:45 02/26/19 20:44 Cefepime HCl 2 gm/ Dextrose 110 ml @ 220 mls/hr Q24H IV 02/22/19 00:00 03/01/19 00:00 02/24/19 00:46 Chlorhexidine Gluconate (Kiara-Hex 2%) 1 applic DAILY@2000 TOPIC 02/23/19 20:00 03/25/19 19:59 02/23/19 21:02 Dextrose (Dextrose 50%) 25 ml Q30M PRN IV Hypoglycemia 02/21/19 20:45 03/23/19 20:44 Dextrose (Dextrose 50%) 50 ml Q30M PRN IV Hypoglycemia 02/21/19 20:45 03/23/19 20:44 Docusate Sodium (Colace) 100 mg TWICE A DAY ORAL 02/23/19 18:00 03/25/19 17:59 02/23/19 17:40 Heparin Sodium (Porcine) (Heparin 5000 units/ml) 5,000 units EVERY 8 HOURS SUBQ 02/23/19 16:00 03/25/19 15:59 Insulin Aspart (NovoLOG) BEFORE MEALS AND HS SUBQ 02/21/19 21:00 03/23/19 20:59 02/24/19 06:41 Megestrol Acetate (Megace) 400 mg TWICE A DAY ORAL 02/23/19 18:00 03/25/19 17:59 02/24/19 09:49 Midodrine (Pro-Amatine) 10 mg THREE TIMES A DAY ORAL 02/23/19 18:00 03/25/19 17:59 02/24/19 09:48 Ondansetron HCl (Zofran) 4 mg Q6H PRN IVP Nausea & Vomiting 02/21/19 20:45 03/23/19 20:44 Pantoprazole (Protonix) 40 mg EVERY 12 HOURS IVP 02/22/19 10:30 03/24/19 10:29 02/24/19 09:49 Polyethylene Glycol (Miralax) 17 gm DAILYPRN PRN ORAL Constipation 02/21/19 20:45 03/23/19 20:44 Promethazine HCl/ Codeine (Phenergan with Codeine) 5 ml Q4H PRN ORAL For Cough 02/21/19 20:45 03/23/19 20:44 Sevelamer Carbonate (Renvela) 800 mg THREE TIMES A DAY ORAL 02/23/19 18:00 03/25/19 17:59 02/24/19 09:48 Vancomycin HCl (Vanco rx to dose) 1 ea DAILY PRN MISC Per rx protocol 02/22/19 10:15 03/24/19 10:14 Vancomycin HCl 1 gm/Sodium Chloride 275 ml @ 183.333 mls/hr ONCE IVPB 02/23/19 12:00 02/28/19 11:59 02/23/19 12:36 Jaime Lux MD Feb 24, 2019 10:24
--- NOTE | 2019-02-24 11:36 | Pulmonology Progress Note ---
Assessment/Plan Problems: (1) Sepsis (2) Gram-positive bacteremia (3) Pleural effusion (4) Intractable abdominal pain (5) ESRF (end stage renal failure) (6) Diabetes mellitus (7) Hypertension (8) Cognitive impairment Assessment/Plan abg noted CXR unchanged WBC decreasing. BC positive for Staph aureus symptomatic treatment titrate fio2 to sat of 92% check electrolytes HD by nephrology echocardiogram cardio evaluation still pending sliding scale dvt prophylaxis. Subjective ROS Limited/Unobtainable: No Interval Events: somnolent Constitutional: Reports: no symptoms HEENT: Repors: no symptoms Respiratory: Reports: no symptoms Allergies: Coded Allergies: No Known Allergies (Unverified , 01/29/19) Objective Last 24 Hour Vital Signs Date Time Temp Pulse Resp B/P (MAP) Pulse Ox O2 Delivery O2 Flow Rate FiO2 02/24/19 08:00 59 02/24/19 08:00 96.8 60 20 112/66 (81) 95 02/24/19 08:00 14.0 02/24/19 04:00 14.0 02/24/19 04:00 97.9 60 20 95/56 (69) 93 02/24/19 04:00 58 02/24/19 00:00 60 02/24/19 00:00 97.5 60 20 106/58 (74) 93 02/24/19 00:00 14.0 02/23/19 21:00 Venturi Mask 14.0 02/23/19 20:00 97.5 61 20 92/58 (69) 92 02/23/19 20:00 60 02/23/19 20:00 14.0 02/23/19 16:30 63 02/23/19 16:00 97.9 62 22 97/56 (70) 94 02/23/19 16:00 15.0 02/23/19 12:00 63 02/23/19 12:00 15.0 Intake and Output 02/23/19 02/24/19 19:00 07:00 Intake Total 110 ml Output Total 450 ml Balance -450 ml 110 ml IV Total 110 ml Output Urine Total 450 ml # Voids 1 2 # Bowel Movements 1 General Appearance: WD/WN HEENT: normocephalic, atraumatic, PERRL Respiratory/Chest: chest wall non-tender, crackles/rales Cardiovascular: normal peripheral pulses, normal rate Genitourinary: normal external genitalia Skin: no rash, no ulcers Lymphatic: no neck adenopathy Microbiology Date/Time Source Procedure Growth Status 02/21/19 21:45 Blood Blood Culture - Final Staphylococcus Aureus - Mrsa Complete 02/21/19 21:30 Blood Blood Culture - Final Staphylococcus Aureus - Mrsa Complete 02/23/19 00:47 Nasal Nares - Final Complete 02/23/19 00:47 Nasal Nares - Final Complete 02/21/19 22:00 Nasal Nares MRSA Culture - Final NO METHICILLIN RESISTANT STAPH AUREUS... Complete 02/21/19 22:00 Rectum - Final NO CARBAPENEM-RESISTANT ENTEROBACTERI... Complete 02/21/19 22:00 Rectum VRE Culture - Final NO VANCOMYCIN RESISTANT ENTEROCOCCUS ... Complete Laboratory Tests 02/24/19 06:15: White Blood Count 11.8H, Red Blood Count 3.34L, Hemoglobin 10.0L, Hematocrit 32.2L, Mean Corpuscular Volume 96, Mean Corpuscular Hemoglobin 29.8, Mean Corpuscular Hemoglobin Concent 30.9L, Red Cell Distribution Width 19.6H, Platelet Count 136L, Mean Platelet Volume 6.7, Neutrophils (%) (Auto) , Lymphocytes (%) (Auto) , Monocytes (%) (Auto) , Eosinophils (%) (Auto) , Basophils (%) (Auto) , Differential Total Cells Counted 100, Neutrophils % ( Manual) 87H, Lymphocytes % (Manual) 7L, Monocytes % (Manual) 6, Eosinophils % ( Manual) 0, Basophils % (Manual) 0, Band Neutrophils 0, Platelet Estimate DecreasedL, Platelet Morphology Normal, Polychromasia 1+, Hypochromasia 1+, Anisocytosis 2+, Erythrocyte Sedimentation Rate 62H, Sodium Level 139, Potassium Level 4.8, Chloride Level 102, Carbon Dioxide Level 23, Anion Gap 14, Blood Urea Nitrogen 72H, Creatinine 5.1H, Estimat Glomerular Filtration Rate 11.4, Glucose Level 145H, Uric Acid 6.2, Calcium Level 8.5, Phosphorus Level 6.1H, Magnesium Level 2.5H, Total Bilirubin 1.9H, Direct Bilirubin 1.5H, Aspartate Amino Transf (AST/SGOT) 29, Alanine Aminotransferase (ALT/SGPT) 23, Alkaline Phosphatase 182H, C-Reactive Protein, Quantitative 15.2H, Pro-B-Type Natriuretic Peptide 88951K, Total Protein 7.4, Albumin 2.4L, Globulin 5.0, Albumin/Globulin Ratio 0.5L, Free Thyroxine 0.89, Free Triiodothyronine 1.3L 02/24/19 08:12: Arterial Blood pH 7.330L, Arterial Blood Partial Pressure CO2 48.5H, Arterial Blood Partial Pressure O2 76.8, Arterial Blood HCO3 25.0, Arterial Blood Oxygen Saturation 93.1L, Arterial Blood Base Excess -1.2, Shai Test Positive Current Medications Medications (Trade) Dose Ordered Sig/Feli Route PRN Reason Start Time Stop Time Status Last Admin Dose Admin Acetaminophen (Tylenol) 650 mg Q4H PRN ORAL FEVER 02/21/19 20:45 03/23/19 20:44 02/24/19 03:18 Albuterol/ Ipratropium (Albuterol/ Ipratropium) 3 ml Q4H PRN HHN Shortness of Breath 02/21/19 20:45 02/26/19 20:44 Cefepime HCl 0.5 gm/Dextrose 55 ml @ 110 mls/hr Q24H IVPB 02/24/19 23:00 03/03/19 22:59 Chlorhexidine Gluconate (Kiara-Hex 2%) 1 applic DAILY@2000 TOPIC 02/23/19 20:00 03/25/19 19:59 02/23/19 21:02 Dextrose (Dextrose 50%) 25 ml Q30M PRN IV Hypoglycemia 02/21/19 20:45 03/23/19 20:44 Dextrose (Dextrose 50%) 50 ml Q30M PRN IV Hypoglycemia 02/21/19 20:45 03/23/19 20:44 Heparin Sodium (Porcine) (Heparin 5000 units/ml) 5,000 units EVERY 8 HOURS SUBQ 02/23/19 16:00 03/25/19 15:59 Insulin Aspart (NovoLOG) BEFORE MEALS AND HS SUBQ 02/21/19 21:00 03/23/19 20:59 02/24/19 06:41 Megestrol Acetate (Megace) 400 mg TWICE A DAY ORAL 02/23/19 18:00 03/25/19 17:59 02/24/19 09:49 Midodrine (Pro-Amatine) 10 mg THREE TIMES A DAY ORAL 02/23/19 18:00 03/25/19 17:59 02/24/19 09:48 Ondansetron HCl (Zofran) 4 mg Q6H PRN IVP Nausea & Vomiting 02/21/19 20:45 03/23/19 20:44 Pantoprazole (Protonix) 40 mg EVERY 12 HOURS IVP 02/22/19 10:30 03/24/19 10:29 02/24/19 09:49 Polyethylene Glycol (Miralax) 17 gm DAILYPRN PRN ORAL Constipation 02/21/19 20:45 03/23/19 20:44 Promethazine HCl/ Codeine (Phenergan with Codeine) 5 ml Q4H PRN ORAL For Cough 02/21/19 20:45 03/23/19 20:44 Sevelamer Carbonate (Renvela) 800 mg THREE TIMES A DAY ORAL 02/23/19 18:00 03/25/19 17:59 02/24/19 09:48 Vancomycin HCl (Vanco rx to dose) 1 ea DAILY PRN MISC Per rx protocol 02/22/19 10:15 03/24/19 10:14 Maurizio Rose MD Feb 24, 2019 11:36
--- NOTE | 2019-02-24 11:50 | NUR ---
NURSE NOTES: L hand scratch noted. cleaned with alcohol and covered.
[2019-02-24 12:00] VITALS: BP 111/57
--- NOTE | 2019-02-24 12:37 | NUR ---
CASE MANAGEMENT:REVIEW 02/24/19 SI: SEPSIS. BACTEREMIA. ESRD 96.8 60 20 112/66 95% ON VENTURI MASK WBC+11.8 PLT-136 BUN+72 CR+5.1 IS: IV CEFEPIME Q24 MIDODRINE PO TID MEGACE PO BID HEPARIN SQ Q8HRS IV PROTONIX Q12 : TELEMETRY STATUS DCP: FROM [facility] [place] PLAN: WEAN TO NASAL CANNULA AND MORE TO LOWER LEVEL OF CARE
--- NOTE | 2019-02-24 14:10 | NUR ---
NURSE NOTES: Spouse refused Heparin to be given to Pt. Education done.
[2019-02-24 16:00] VITALS: BP 104/56
--- NOTE | 2019-02-24 17:10 | NUR ---
NURSE NOTES: Restraint was off all day since family was at bedside and RN close by most of shift.
[2019-02-24] MEDS ORDERED: NS 275ml ONE (17:17)
[2019-02-24] MEDS ORDERED: Tubing IV Secondary IV ONE (17:17)
--- NOTE | 2019-02-24 19:05 | NUR ---
HAND-OFF: Report given to KRISTEN Hernandez. O2 sat 96. BP stable. Family at bedside. Plan of care endorsed.
--- NOTE | 2019-02-24 19:06 | NUR ---
Report from Wicho PETERSON. Plan of care was endorsed to me.
[2019-02-24 20:00] VITALS: BP 112/64
[2019-02-24] MEDS: Dyna-Hex 2% Top Sol 2oz TOPIC SCH (21:30)
[2019-02-24] MEDS: Cefepime HCl 0.5 GM in D5W 55 ML IVPB SCH (23:28)
[2019-02-25] VITALS: BP 99/58
[2019-02-25 04:00] VITALS: BP 101/56
[2019-02-25] MEDS: Heparin 5000 units/ml inj SUBQ SCH ×3 (05:56→21:22)
[2019-02-25] MEDS: NovoLOG Insulin Flexpen SUBQ SCH ×4 (05:56→21:00)
[2019-02-25 07:17] LABS: BASOPHILS % (AUTO) 0.6 % (0.0-2.0); EOSINOPHILS % (AUTO) 0.9 % (0.0-3.0); HEMATOCRIT 31.3 % (42.0-52.0); HEMOGLOBIN 9.8 G/DL (14.2-18.0); LYMPHOCYTES % (AUTO) 9.5 % (20.0-45.0); MEAN CORPUSCULAR VOLUME 95 FL (80-99); MONOCYTES % (AUTO) 8.2 % (1.0-10.0); NEUTROPHILS % (AUTO) 80.8 % (45.0-75.0); PLATELET COUNT 134 K/UL (150-450); RED CELL DISTRIBUTION WIDTH 18.8 % (11.6-14.8); WHITE BLOOD COUNT 9.5 K/UL (4.8-10.8)
--- NOTE | 2019-02-25 07:24 | NUR ---
Report given to Cynthia PETERSON. Endorsed plan of care.
[2019-02-25 07:46] LABS: ALANINE AMINOTRANSFERASE 18 U/L (12-78); ALBUMIN 2.2 G/DL (3.4-5.0); ALBUMIN/GLOBULIN RATIO 0.4 (1.0-2.7); ALKALINE PHOSPHATASE 178 U/L (46-116); ANION GAP 11 mmol/L (5-15); ASPARTATE AMINO TRANSFERASE 27 U/L (15-37); BILIRUBIN,TOTAL 1.7 MG/DL (0.2-1.0); BLOOD UREA NITROGEN 77 mg/dL (7-18); CALCIUM 8.5 MG/DL (8.5-10.1); CARBON DIOXIDE 24 MMOL/L (21-32); CHLORIDE 100 MMOL/L (98-107); PHOSPHORUS 6.4 MG/DL (2.5-4.9); POTASSIUM 4.7 MMOL/L (3.5-5.1); SODIUM 135 MMOL/L (136-145)
--- NOTE | 2019-02-25 07:52 | NUR ---
NURSE NOTES: pt in bed resting, has ventury mask on, pt. responds to touch. Pt may be having dialysis today doctor will decided. Pt on engine monitor, no signs of cardiac distress. Pt does not report any pain. Call light within reach, bed is locked and in lowest position. pt has bilateral soft restraints. Will continue to monitor.
[2019-02-25 07:59] LABS: BILIRUBIN,DIRECT 1.3 MG/DL (0.0-0.3)
[2019-02-25 08:00] VITALS: BP 107/57
--- NOTE | 2019-02-25 09:41 | Infectious Diseases Prog Note ---
Assessment/Plan Assessment/Plan 63 yo male with PMHx of ESRD on HD, DM, and HTN who was sent to the ED from his halfway for SOB. Sepsis Bacteremia Blood Cx 02/21/19 - MRSA Pos 2/2 Blood Cx 02/24/19 - Pend TTE 02/22/19 - No sign of vegetations Respiratory failure Likely due to PNA vs Plerual effusions CXR showed large bilateral pleural effusions No fever Leukocytosis ESRD on HD DM HTN PLAN - Continue Cefepime #4/7 and Vancomycin #4 - f/u repeat Cx cultures - Get MARJAN - Monitor CBC and Temps Thank you for this consult. [facility] will continue to follow the patient with you during this hospitalization. Subjective Allergies: Coded Allergies: No Known Allergies (Unverified , 01/29/19) Subjective Afebrile Leukcytosis resolved Objective Vital Signs Last 24 Hour Vital Signs Date Time Temp Pulse Resp B/P (MAP) Pulse Ox O2 Delivery O2 Flow Rate FiO2 02/25/19 08:00 97.5 59 18 107/57 (74) 97 02/25/19 08:00 14.0 02/25/19 08:00 56 02/25/19 07:50 97 Venturi Mask 14.0 55 02/25/19 07:50 57 16 97 Venturi Mask 14.0 55 02/25/19 04:00 61 02/25/19 04:00 97.7 56 18 101/56 (71) 96 02/25/19 04:00 14.0 02/25/19 00:00 98.2 59 18 99/58 (72) 95 02/25/19 00:00 57 02/24/19 21:00 Venturi Mask 14.0 02/24/19 20:00 74 18 93 Venturi Mask 14.0 55 02/24/19 20:00 14.0 02/24/19 20:00 99.4 76 18 112/64 (80) 95 02/24/19 20:00 93 Venturi Mask 14.0 55 02/24/19 16:00 55 02/24/19 16:00 96.9 59 18 104/56 (72) 95 02/24/19 16:00 14.0 02/24/19 12:00 56 02/24/19 12:00 14.0 02/24/19 12:00 96.4 59 18 111/57 (75) 95 Height (Feet): 5 Height (Inches): 8.00 Weight (Pounds): 165 Objective Gen: Confused, On NRB mask 15L HEENT: NCAT, MMM, EOMI LUNGS: CTAB, No W CARDS: RRR, S1, S2 ABD: Soft, NT, ND Microbiology Date/Time Source Procedure Growth Status 02/23/19 00:47 Nasal Nares - Final Complete 02/23/19 00:47 Nasal Nares - Final Complete Laboratory Tests Test 02/25/19 05:55 White Blood Count 9.5 K/UL (4.8-10.8) Red Blood Count 3.30 M/UL (4.70-6.10) L Hemoglobin 9.8 G/DL (14.2-18.0) L Hematocrit 31.3 % (42.0-52.0) L Mean Corpuscular Volume 95 FL (80-99) Mean Corpuscular Hemoglobin 29.8 PG (27.0-31.0) Mean Corpuscular Hemoglobin Concent 31.4 G/DL (32.0-36.0) L Red Cell Distribution Width 18.8 % (11.6-14.8) H Platelet Count 134 K/UL (150-450) L Mean Platelet Volume 6.7 FL (6.5-10.1) Neutrophils (%) (Auto) 80.8 % (45.0-75.0) H Lymphocytes (%) (Auto) 9.5 % (20.0-45.0) L Monocytes (%) (Auto) 8.2 % (1.0-10.0) Eosinophils (%) (Auto) 0.9 % (0.0-3.0) Basophils (%) (Auto) 0.6 % (0.0-2.0) Erythrocyte Sedimentation Rate 88 MM/HR (0-20) H Sodium Level 135 MMOL/L (136-145) L Potassium Level 4.7 MMOL/L (3.5-5.1) Chloride Level 100 MMOL/L (98-107) Carbon Dioxide Level 24 MMOL/L (21-32) Anion Gap 11 mmol/L (5-15) Blood Urea Nitrogen 77 mg/dL (7-18) H Creatinine 6.0 MG/DL (0.55-1.30) H Estimat Glomerular Filtration Rate 9.5 mL/min (>60) Glucose Level 111 MG/DL (74-106) H Uric Acid 7.3 MG/DL (2.6-7.2) H Calcium Level 8.5 MG/DL (8.5-10.1) Phosphorus Level 6.4 MG/DL (2.5-4.9) H Magnesium Level 2.5 MG/DL (1.8-2.4) H Total Bilirubin 1.7 MG/DL (0.2-1.0) H Direct Bilirubin 1.3 MG/DL (0.0-0.3) H Aspartate Amino Transf (AST/SGOT) 27 U/L (15-37) Alanine Aminotransferase (ALT/SGPT) 18 U/L (12-78) Alkaline Phosphatase 178 U/L (46-116) H C-Reactive Protein, Quantitative 11.8 mg/dL (0.00-0.90) H Pro-B-Type Natriuretic Peptide 45738 pg/mL (0-125) H Total Protein 7.2 G/DL (6.4-8.2) Albumin 2.2 G/DL (3.4-5.0) L Globulin 5.0 g/dL Albumin/Globulin Ratio 0.4 (1.0-2.7) L Random Vancomycin Level 15.4 ug/mL Current Medications Medications (Trade) Dose Ordered Sig/Feli Route PRN Reason Start Time Stop Time Status Last Admin Dose Admin Acetaminophen (Tylenol) 650 mg Q4H PRN ORAL FEVER 02/21/19 20:45 03/23/19 20:44 02/24/19 03:18 Albuterol/ Ipratropium (Albuterol/ Ipratropium) 3 ml Q4H PRN HHN Shortness of Breath 02/21/19 20:45 02/26/19 20:44 Cefepime HCl 0.5 gm/Dextrose 55 ml @ 110 mls/hr Q24H IVPB 02/24/19 23:00 03/03/19 22:59 02/24/19 23:28 Chlorhexidine Gluconate (Kiara-Hex 2%) 1 applic DAILY@2000 TOPIC 02/23/19 20:00 03/25/19 19:59 02/24/19 21:30 Dextrose (Dextrose 50%) 25 ml Q30M PRN IV Hypoglycemia 02/21/19 20:45 03/23/19 20:44 Dextrose (Dextrose 50%) 50 ml Q30M PRN IV Hypoglycemia 02/21/19 20:45 03/23/19 20:44 Heparin Sodium (Porcine) (Heparin 5000 units/ml) 5,000 units EVERY 8 HOURS SUBQ 02/23/19 16:00 03/25/19 15:59 Insulin Aspart (NovoLOG) BEFORE MEALS AND HS SUBQ 02/21/19 21:00 03/23/19 20:59 02/24/19 12:26 Megestrol Acetate (Megace) 400 mg TWICE A DAY ORAL 02/23/19 18:00 03/25/19 17:59 02/24/19 17:42 Midodrine (Pro-Amatine) 10 mg THREE TIMES A DAY ORAL 02/23/19 18:00 03/25/19 17:59 02/24/19 17:41 Ondansetron HCl (Zofran) 4 mg Q6H PRN IVP Nausea & Vomiting 02/21/19 20:45 03/23/19 20:44 Pantoprazole (Protonix) 40 mg EVERY 12 HOURS IVP 02/22/19 10:30 03/24/19 10:29 02/24/19 21:31 Polyethylene Glycol (Miralax) 17 gm DAILYPRN PRN ORAL Constipation 02/21/19 20:45 03/23/19 20:44 Promethazine HCl/ Codeine (Phenergan with Codeine) 5 ml Q4H PRN ORAL For Cough 02/21/19 20:45 03/23/19 20:44 Sevelamer Carbonate (Renvela) 1,600 mg THREE TIMES A DAY ORAL 02/25/19 09:00 03/25/19 17:59 Vancomycin HCl (Vanco rx to dose) 1 ea DAILY PRN MISC Per rx protocol 02/22/19 10:15 03/24/19 10:14 Vancomycin HCl 1 gm/Sodium Chloride 275 ml @ 183.708 mls/hr ONCE IVPB 02/25/19 16:00 02/25/19 18:00 Jaime Lux MD Feb 25, 2019 09:41
--- NOTE | 2019-02-25 09:47 | NUR ---
RD ASSESSMENT & RECOMMENDATIONS SEE CARE ACTIVITY FOR COMPLETE ASSESSMENT DAILY ESTIMATED NEEDS: Needs based on ESRD w/ HD, wound 75kg 30-35 kcals/kg [id number] total kcals 1.25-1.5 g protein/kg 94-135 g total protein Fluid per Md, on HD NUTRITION DIAGNOSIS: Increased kcal and pro needs r/t renal dysfunction and ESRD as evidenced by pt on dialysis w/ sacral partial thickness wound. CURRENT DIET: [facility] PO DIET RECOMMENDATIONS--->> RENAL DIET (texture per ADMINISTRATIVE DIRECTOR) ADDITIONAL RECOMMENDATIONS: 1) rec to DC [facility] diet-> RENAL ONLY ADD NEPRO TID W/ MEALS 2) ADMINISTRATIVE DIRECTOR eval -> poor intake, on venturi mask 3) Monitor for hypoglycemia w/ con't poor intake 4) Calibrated bed scale wts 5) Wound care: if tolerated add SHILPA in 4-8oz H2O BID
[2019-02-25] MEDS: Megace 400mg/10ml Susp ORAL SCH ×3 (10:12→18:38)
[2019-02-25] MEDS: Midodrine 10mg tab ORAL SCH ×4 (10:12→18:38)
[2019-02-25] MEDS: Pantoprazole Inj IVP SCH ×2 (10:13→21:13)
--- NOTE | 2019-02-25 11:01 | Pulmonology Progress Note ---
Assessment/Plan Problems: (1) Sepsis (2) Gram-positive bacteremia (3) Pleural effusion (4) Intractable abdominal pain (5) ESRF (end stage renal failure) (6) Diabetes mellitus (7) Hypertension (8) Cognitive impairment Assessment/Plan repeat blood cultures are pending WBC decreasing. BC positive for Staph aureus symptomatic treatment titrate fio2 to sat of 92% check electrolytes HD by nephrology echocardiogram sliding scale dvt prophylaxis. Subjective ROS Limited/Unobtainable: Yes Interval Events: somnolent Constitutional: Reports: no symptoms HEENT: Repors: no symptoms Respiratory: Reports: no symptoms Allergies: Coded Allergies: No Known Allergies (Unverified , 01/29/19) Objective Last 24 Hour Vital Signs Date Time Temp Pulse Resp B/P (MAP) Pulse Ox O2 Delivery O2 Flow Rate FiO2 02/25/19 08:00 97.5 59 18 107/57 (74) 97 02/25/19 08:00 14.0 02/25/19 08:00 56 02/25/19 07:50 97 Venturi Mask 14.0 55 02/25/19 07:50 57 16 97 Venturi Mask 14.0 55 02/25/19 04:00 61 02/25/19 04:00 97.7 56 18 101/56 (71) 96 02/25/19 04:00 14.0 02/25/19 00:00 98.2 59 18 99/58 (72) 95 02/25/19 00:00 57 02/24/19 21:00 Venturi Mask 14.0 02/24/19 20:00 74 18 93 Venturi Mask 14.0 55 02/24/19 20:00 14.0 02/24/19 20:00 99.4 76 18 112/64 (80) 95 02/24/19 20:00 93 Venturi Mask 14.0 55 02/24/19 16:00 55 02/24/19 16:00 96.9 59 18 104/56 (72) 95 02/24/19 16:00 14.0 02/24/19 12:00 56 02/24/19 12:00 14.0 02/24/19 12:00 96.4 59 18 111/57 (75) 95 General Appearance: WD/WN, no acute distress HEENT: normocephalic Respiratory/Chest: chest wall non-tender, crackles/rales Cardiovascular: normal peripheral pulses, normal rate Abdomen: normal bowel sounds, soft, non tender Genitourinary: normal external genitalia Extremities: no cyanosis, no clubbing Skin: no rash Neurologic/Psychiatric: lodging facilities attendant II-XII grossly normal Microbiology Date/Time Source Procedure Growth Status 02/23/19 00:47 Nasal Nares - Final Complete 02/23/19 00:47 Nasal Nares - Final Complete Laboratory Tests 02/25/19 05:55: White Blood Count 9.5, Red Blood Count 3.30L, Hemoglobin 9.8L, Hematocrit 31.3L , Mean Corpuscular Volume 95, Mean Corpuscular Hemoglobin 29.8, Mean Corpuscular Hemoglobin Concent 31.4L, Red Cell Distribution Width 18.8H, Platelet Count 134L, Mean Platelet Volume 6.7, Neutrophils (%) (Auto) 80.8H, Lymphocytes (%) (Auto) 9.5L, Monocytes (%) (Auto) 8.2, Eosinophils (%) (Auto) 0.9, Basophils (%) (Auto) 0.6, Erythrocyte Sedimentation Rate 88H, Sodium Level 135L, Potassium Level 4.7, Chloride Level 100, Carbon Dioxide Level 24, Anion Gap 11, Blood Urea Nitrogen 77H, Creatinine 6.0H, Estimat Glomerular Filtration Rate 9.5, Glucose Level 111H, Uric Acid 7.3H, Calcium Level 8.5, Phosphorus Level 6.4H, Magnesium Level 2.5H, Total Bilirubin 1.7H, Direct Bilirubin 1.3H, Aspartate Amino Transf (AST/SGOT) 27, Alanine Aminotransferase (ALT/SGPT) 18, Alkaline Phosphatase 178H, C-Reactive Protein, Quantitative 11.8H, Pro-B-Type Natriuretic Peptide 14662I, Total Protein 7.2, Albumin 2.2L, Globulin 5.0, Albumin/Globulin Ratio 0.4L, Random Vancomycin Level 15.4 Current Medications Medications (Trade) Dose Ordered Sig/Feli Route PRN Reason Start Time Stop Time Status Last Admin Dose Admin Acetaminophen (Tylenol) 650 mg Q4H PRN ORAL FEVER 02/21/19 20:45 03/23/19 20:44 02/24/19 03:18 Albuterol/ Ipratropium (Albuterol/ Ipratropium) 3 ml Q4H PRN HHN Shortness of Breath 02/21/19 20:45 02/26/19 20:44 Cefepime HCl 0.5 gm/Dextrose 55 ml @ 110 mls/hr Q24H IVPB 02/24/19 23:00 03/03/19 22:59 02/24/19 23:28 Chlorhexidine Gluconate (Kiara-Hex 2%) 1 applic DAILY@2000 TOPIC 02/23/19 20:00 03/25/19 19:59 02/24/19 21:30 Dextrose (Dextrose 50%) 25 ml Q30M PRN IV Hypoglycemia 02/21/19 20:45 03/23/19 20:44 Dextrose (Dextrose 50%) 50 ml Q30M PRN IV Hypoglycemia 02/21/19 20:45 03/23/19 20:44 Heparin Sodium (Porcine) (Heparin 5000 units/ml) 5,000 units EVERY 8 HOURS SUBQ 02/23/19 16:00 03/25/19 15:59 Insulin Aspart (NovoLOG) BEFORE MEALS AND HS SUBQ 02/21/19 21:00 03/23/19 20:59 02/24/19 12:26 Megestrol Acetate (Megace) 400 mg TWICE A DAY ORAL 02/23/19 18:00 03/25/19 17:59 02/25/19 10:12 Midodrine (Pro-Amatine) 10 mg THREE TIMES A DAY ORAL 02/23/19 18:00 03/25/19 17:59 02/25/19 10:12 Ondansetron HCl (Zofran) 4 mg Q6H PRN IVP Nausea & Vomiting 02/21/19 20:45 03/23/19 20:44 Pantoprazole (Protonix) 40 mg EVERY 12 HOURS IVP 02/22/19 10:30 03/24/19 10:29 02/25/19 10:13 Polyethylene Glycol (Miralax) 17 gm DAILYPRN PRN ORAL Constipation 02/21/19 20:45 03/23/19 20:44 Promethazine HCl/ Codeine (Phenergan with Codeine) 5 ml Q4H PRN ORAL For Cough 02/21/19 20:45 03/23/19 20:44 Sevelamer Carbonate (Renvela) 1,600 mg THREE TIMES A DAY ORAL 02/25/19 09:00 03/25/19 17:59 02/25/19 10:12 Vancomycin HCl (Vanco rx to dose) 1 ea DAILY PRN MISC Per rx protocol 02/22/19 10:15 03/24/19 10:14 Vancomycin HCl 1 gm/Sodium Chloride 275 ml @ 183.708 mls/hr ONCE IVPB 02/25/19 16:00 02/25/19 18:00 Maurizio Rose MD Feb 25, 2019 11:01
--- NOTE | 2019-02-25 11:30 | NUR ---
NURSE NOTES: notified doctor Natalia that pt is not eating and that pt is spitting and refusing meds. Also notified doctor that pt is complaining of pain. Tried to give pt tylenol for pain but he spits it out.
--- NOTE | 2019-02-25 11:37 | Nephrology Progress Note ---
Assessment/Plan Problem List: (1) ESRF (end stage renal failure) (2) Sepsis Assessment: ? line related (3) Diabetes mellitus (4) Pleural effusion (5) Anemia (6) Bradycardia Assessment ESRD - Has right chest permacath Anemia Leukocytosis Pleural effusion Bradycardia troponin elevation cardiomyopathy . Plan check ABG Antibiotics HD 02/25 2D echo 40% start midodrine Subjective ROS Limited/Unobtainable: No Constitutional: Reports: malaise, weakness Objective Objective Last 24 Hour Vital Signs Date Time Temp Pulse Resp B/P (MAP) Pulse Ox O2 Delivery O2 Flow Rate FiO2 02/25/19 08:00 97.5 59 18 107/57 (74) 97 02/25/19 08:00 14.0 02/25/19 08:00 56 02/25/19 07:50 97 Venturi Mask 14.0 55 02/25/19 07:50 57 16 97 Venturi Mask 14.0 55 02/25/19 04:00 61 02/25/19 04:00 97.7 56 18 101/56 (71) 96 02/25/19 04:00 14.0 02/25/19 00:00 98.2 59 18 99/58 (72) 95 02/25/19 00:00 57 02/24/19 21:00 Venturi Mask 14.0 02/24/19 20:00 74 18 93 Venturi Mask 14.0 55 02/24/19 20:00 14.0 02/24/19 20:00 99.4 76 18 112/64 (80) 95 02/24/19 20:00 93 Venturi Mask 14.0 55 02/24/19 16:00 55 02/24/19 16:00 96.9 59 18 104/56 (72) 95 02/24/19 16:00 14.0 02/24/19 12:00 56 02/24/19 12:00 14.0 02/24/19 12:00 96.4 59 18 111/57 (75) 95 Laboratory Tests 02/25/19 05:55: White Blood Count 9.5, Red Blood Count 3.30L, Hemoglobin 9.8L, Hematocrit 31.3L , Mean Corpuscular Volume 95, Mean Corpuscular Hemoglobin 29.8, Mean Corpuscular Hemoglobin Concent 31.4L, Red Cell Distribution Width 18.8H, Platelet Count 134L, Mean Platelet Volume 6.7, Neutrophils (%) (Auto) 80.8H, Lymphocytes (%) (Auto) 9.5L, Monocytes (%) (Auto) 8.2, Eosinophils (%) (Auto) 0.9, Basophils (%) (Auto) 0.6, Erythrocyte Sedimentation Rate 88H, Sodium Level 135L, Potassium Level 4.7, Chloride Level 100, Carbon Dioxide Level 24, Anion Gap 11, Blood Urea Nitrogen 77H, Creatinine 6.0H, Estimat Glomerular Filtration Rate 9.5, Glucose Level 111H, Uric Acid 7.3H, Calcium Level 8.5, Phosphorus Level 6.4H, Magnesium Level 2.5H, Total Bilirubin 1.7H, Direct Bilirubin 1.3H, Aspartate Amino Transf (AST/SGOT) 27, Alanine Aminotransferase (ALT/SGPT) 18, Alkaline Phosphatase 178H, C-Reactive Protein, Quantitative 11.8H, Pro-B-Type Natriuretic Peptide [id number], Total Protein 7.2, Albumin 2.2L, Globulin 5.0, Albumin/Globulin Ratio 0.4L, Random Vancomycin Level 15.4 Height (Feet): 5 Height (Inches): 8.00 Weight (Pounds): 165 General Appearance: no apparent distress Cardiovascular: bradycardia Respiratory/Chest: decreased breath sounds Abdomen: distended Magan Lara MD Feb 25, 2019 11:37
--- NOTE | 2019-02-25 11:52 | NUR ---
CARDIOLOGY MARJAN is scheduled for Thursday (Feb 28) 10am. Need good IV, NPO, and consent for Dr. Dooley to perform MARJAN.
[2019-02-25 12:00] VITALS: BP 113/66
--- NOTE | 2019-02-25 12:19 | NUR ---
CASE MANAGEMENT:REVIEW 02/25/19 SI: SEPSIS. BACTEREMIA. ESRD 97.5 59 18 107/57 97% ON VENTURI MASK 14L @ 55% BUN+77 CR+6.0 IS: IV VANCOMYCIN X1 IV CEFEPIME Q24 MIDODRINE PO TID MEGACE PO BID HEPARIN SQ Q8HRS IV PROTONIX Q12 : TELEMETRY STATUS DCP: FROM [facility] PLAN: WEAN TO NASAL CANNULA AND MORE TO LOWER LEVEL OF CARE
[2019-02-25 16:00] VITALS: BP 120/71
[2019-02-25] MEDS ORDERED: Vancomycin 1 GM in NS 275 ML IVPB SCH (16:00)
--- NOTE | 2019-02-25 16:45 | NUR ---
NURSE NOTES: pt does not want to under go MARJAN procedure, she claims he has done it in the past. She is afraid pt may not survive procedure and she feels this will be just torturing him.
[2019-02-25] MEDS: Renvela 800mg Pkt ORAL SCH ×2 (18:28→18:39)
--- NOTE | 2019-02-25 18:47 | NUR ---
NURSE NOTES: pt too lethargic to take medication for 1800
--- NOTE | 2019-02-25 18:50 | NUR ---
NURSE NOTES: pt. wants to put pt DNR, but will like to get further information in [place] because she wants to be sure of what she is doing is the right thing. "I don't want my to be torture, he doesn't like the mask or any tubes".
--- NOTE | 2019-02-25 19:16 | NUR ---
Report from Cynthia PETERSON. She endorsed to me that family wishes to have more information regarding putting patient on DNR status. Pt also is congested. Awaiting callback from Dr Rose for order. Cynthia endorsed to me the plan of care.
[2019-02-25 20:00] VITALS: BP 116/63
--- NOTE | 2019-02-25 20:05 | NUR ---
HAND-OFF: Report given to Alexandra/KRISTEN.
[2019-02-25] MEDS: Dyna-Hex 2% Top Sol 2oz TOPIC SCH (21:12)
[2019-02-25] MEDS: Cefepime HCl 0.5 GM in D5W 55 ML IVPB SCH (23:23)
[2019-02-26] VITALS: BP 114/70
[2019-02-26 04:00] VITALS: BP 117/64
[2019-02-26] MEDS: NovoLOG Insulin Flexpen SUBQ SCH ×4 (05:45→21:39)
[2019-02-26] MEDS: Heparin 5000 units/ml inj SUBQ SCH ×3 (05:46→22:00)
--- NOTE | 2019-02-26 07:34 | NUR ---
Report given to Kaley PETERSON Endorsed plan of care and family's wishes for further information on DNR
--- NOTE | 2019-02-26 07:38 | NUR ---
NURSE NOTES: Received patient from Dari Hernandez. Patient is awake resting comfortably in bed. Patient on Venturi mask 14 L with 55% FIO2. O2 Sat on the 90's. NO s/s of respiratory distress. at bedside helping patient eat. education provided re: aspiration risks. Will monitor patient all throughput this shift.
[2019-02-26 08:00] VITALS: BP 118/58
--- NOTE | 2019-02-26 08:00 | NUR ---
NURSE NOTES: Dr. Fisher on the floor in to see patient. made aware of family's desire to discuss DNR. Per MD he will discuss with family on Thursday. Noted.
[2019-02-26] MEDS: Megace 400mg/10ml Susp ORAL SCH ×2 (08:58→17:37)
[2019-02-26] MEDS: Renvela 800mg Pkt ORAL SCH ×3 (08:58→17:32)
[2019-02-26] MEDS: Midodrine 10mg tab ORAL SCH ×3 (08:58→17:32)
[2019-02-26] MEDS: Pantoprazole Inj IVP SCH ×2 (09:00→21:39)
--- NOTE | 2019-02-26 09:45 | Infectious Diseases Prog Note ---
Assessment/Plan Assessment/Plan 63 yo male with PMHx of ESRD on HD, DM, and HTN who was sent to the ED from his correction for SOB. Sepsis Bacteremia Blood Cx 02/21/19 - MRSA Pos 2/2 Blood Cx 02/24/19 - Pend TTE 02/22/19 - No sign of vegetations Respiratory failure Likely due to PNA vs Plerual effusions CXR showed large bilateral pleural effusions No fever Leukocytosis ESRD on HD DM HTN PLAN - Continue Cefepime #5/7 and Vancomycin #5 - f/u repeat Cx cultures - f/u Permacath Cx - Monitor CBC and Temps Thank you for this consult. [facility] will continue to follow the patient with you during this hospitalization. Subjective Allergies: Coded Allergies: No Known Allergies (Unverified , 01/29/19) Subjective Afebrile No Leukcytosis Objective Vital Signs Last 24 Hour Vital Signs Date Time Temp Pulse Resp B/P (MAP) Pulse Ox O2 Delivery O2 Flow Rate FiO2 02/26/19 08:00 97.7 67 18 118/58 (78) 93 02/26/19 07:00 66 14 94 Venturi Mask 14.0 55 02/26/19 07:00 94 Venturi Mask 14.0 55 02/26/19 04:00 63 02/26/19 04:00 14.0 55 02/26/19 04:00 97.7 66 18 117/64 (81) 98 02/26/19 00:12 14.0 55 02/26/19 00:00 97.2 64 18 114/70 (85) 98 02/26/19 00:00 64 02/25/19 21:00 Venturi Mask 14.0 02/25/19 20:00 14.0 55 02/25/19 20:00 97.7 64 18 116/63 (80) 98 02/25/19 20:00 63 02/25/19 19:41 60 16 96 Venturi Mask 14.0 55 02/25/19 19:41 96 Venturi Mask 14.0 55 02/25/19 16:00 61 02/25/19 16:00 14.0 55 02/25/19 16:00 97.0 61 18 120/71 (87) 98 02/25/19 12:00 14.0 55 02/25/19 12:00 96.6 62 18 113/66 (82) 96 02/25/19 12:00 61 Height (Feet): 5 Height (Inches): 8.00 Weight (Pounds): 165 Objective Gen: On NRB mask 14L HEENT: NCAT, MMM, EOMI LUNGS: CTAB, No W, Right chest permacath CARDS: RRR, S1, S2 ABD: Soft, NT, ND Microbiology Date/Time Source Procedure Growth Status 02/25/19 12:00 Blood Blood Culture - Preliminary Resulted 02/24/19 11:30 Blood Blood Culture - Preliminary Resulted 02/24/19 11:20 Blood Blood Culture - Preliminary Resulted Current Medications Medications (Trade) Dose Ordered Sig/Feli Route PRN Reason Start Time Stop Time Status Last Admin Dose Admin Acetaminophen (Tylenol) 650 mg Q4H PRN ORAL FEVER 02/21/19 20:45 03/23/19 20:44 02/24/19 03:18 Albuterol/ Ipratropium (Albuterol/ Ipratropium) 3 ml Q4H PRN HHN Shortness of Breath 02/21/19 20:45 02/26/19 20:44 Cefepime HCl 0.5 gm/Dextrose 55 ml @ 110 mls/hr Q24H IVPB 02/24/19 23:00 03/03/19 22:59 02/25/19 23:23 Chlorhexidine Gluconate (Kiara-Hex 2%) 1 applic DAILY@2000 TOPIC 02/23/19 20:00 03/25/19 19:59 02/25/19 21:12 Dextrose (Dextrose 50%) 25 ml Q30M PRN IV Hypoglycemia 02/21/19 20:45 03/23/19 20:44 Dextrose (Dextrose 50%) 50 ml Q30M PRN IV Hypoglycemia 02/21/19 20:45 03/23/19 20:44 Heparin Sodium (Porcine) (Heparin 5000 units/ml) 5,000 units EVERY 8 HOURS SUBQ 02/23/19 16:00 03/25/19 15:59 Insulin Aspart (NovoLOG) BEFORE MEALS AND HS SUBQ 02/21/19 21:00 03/23/19 20:59 02/24/19 12:26 Megestrol Acetate (Megace) 400 mg TWICE A DAY ORAL 02/23/19 18:00 03/25/19 17:59 02/25/19 10:12 Midodrine (Pro-Amatine) 10 mg THREE TIMES A DAY ORAL 02/23/19 18:00 03/25/19 17:59 02/25/19 10:12 Ondansetron HCl (Zofran) 4 mg Q6H PRN IVP Nausea & Vomiting 02/21/19 20:45 03/23/19 20:44 Pantoprazole (Protonix) 40 mg EVERY 12 HOURS IVP 02/22/19 10:30 03/24/19 10:29 02/26/19 09:00 Polyethylene Glycol (Miralax) 17 gm DAILYPRN PRN ORAL Constipation 02/21/19 20:45 03/23/19 20:44 Promethazine HCl/ Codeine (Phenergan with Codeine) 5 ml Q4H PRN ORAL For Cough 02/21/19 20:45 03/23/19 20:44 Sevelamer Carbonate (Renvela) 1,600 mg THREE TIMES A DAY ORAL 02/25/19 18:28 03/27/19 18:27 Vancomycin HCl (Vanco rx to dose) 1 ea DAILY PRN MISC Per rx protocol 02/22/19 10:15 03/24/19 10:14 Jaime Lux MD Feb 26, 2019 09:45
--- NOTE | 2019-02-26 09:48 | Cardiology Progress Note ---
Assessment/Plan Assessment/Plan fuill note dictated [id number] need gdmt for cm / chf when bp allows indicted a change in mentation on thursday may be metabolic related iv abx source of bactermia ? may need further testing cath 07/2018 lacusc \lm 20% distally , lad 20% mid , lcx 30% , rca MLIs Objective Last 24 Hour Vital Signs Date Time Temp Pulse Resp B/P (MAP) Pulse Ox O2 Delivery O2 Flow Rate FiO2 02/26/19 08:00 97.7 67 18 118/58 (78) 93 02/26/19 07:00 66 14 94 Venturi Mask 14.0 55 02/26/19 07:00 94 Venturi Mask 14.0 55 02/26/19 04:00 63 02/26/19 04:00 14.0 55 02/26/19 04:00 97.7 66 18 117/64 (81) 98 02/26/19 00:12 14.0 55 02/26/19 00:00 97.2 64 18 114/70 (85) 98 02/26/19 00:00 64 02/25/19 21:00 Venturi Mask 14.0 02/25/19 20:00 14.0 55 02/25/19 20:00 97.7 64 18 116/63 (80) 98 02/25/19 20:00 63 02/25/19 19:41 60 16 96 Venturi Mask 14.0 55 02/25/19 19:41 96 Venturi Mask 14.0 55 02/25/19 16:00 61 02/25/19 16:00 14.0 55 02/25/19 16:00 97.0 61 18 120/71 (87) 98 02/25/19 12:00 14.0 55 02/25/19 12:00 96.6 62 18 113/66 (82) 96 02/25/19 12:00 61 Intake and Output 02/25/19 02/26/19 19:00 07:00 Intake Total 120 ml Output Total 1000 ml 1 ml Balance -880 ml -1 ml Intake Oral 120 ml Output Urine Total 1 ml Stool Total 0 ml Hemodialysis UF 1000 ml Microbiology Date/Time Source Procedure Growth Status 02/25/19 12:00 Blood Blood Culture - Preliminary Resulted 02/24/19 11:30 Blood Blood Culture - Preliminary Resulted 02/24/19 11:20 Blood Blood Culture - Preliminary Resulted Enio Soto MD Feb 26, 2019 09:48
--- NOTE | 2019-02-26 11:10 | NUR ---
NURSE NOTES: Dr. Camejo in to see patient. Made aware patient lethargic, unable to swallow and possible aspiration risks. new order to place NGT. noted and carried out. #12 NGT Left nare placed. Awaiting KUB to be done foe placement confirmation. will follow
--- NOTE | 2019-02-26 11:47 | NUR ---
RADIOLOGY DEPT., ABDOMEN X-RAY COMPLETED FOR NGT PLCMT.-P.DYE
[2019-02-26 12:00] VITALS: BP 120/59
--- NOTE | 2019-02-26 12:04 | Diagnostic Imaging Report ---
EXAM: XR Abdomen, 1 view CLINICAL HISTORY: NGT TECHNIQUE: Frontal view of the abdomen/pelvis. COMPARISON: No relevant prior studies available. FINDINGS: Lower thorax: Bilateral pleural effusions, right greater the left. Intraperitoneal space: No evidence of free air low the diaphragm. Gastrointestinal tract: Bowel gas pattern is nonspecific and nonobstructive. Organs: Renal shadows are partially obscured by overlying bowel gas. Bones/joints: Mild degenerative changes throughout the visualized spine. Tubes, lines and devices: NG tube tip in the left upper quadrant in the expected region of the gastric body. EKG leads overlie the lower thorax and upper abdomen. IMPRESSION: 1. NG tube tip in the left upper quadrant in the expected region of the gastric body. 2. Bilateral pleural effusions, right greater the left.
--- NOTE | 2019-02-26 13:00 | NUR ---
NURSE NOTES: Md made aware of KUB result re: NGT placement. new order received ok to use. TF nepro @ 20ml/hr started as per MD's order.
--- NOTE | 2019-02-26 13:42 | Nephrology Progress Note ---
Assessment/Plan Problem List: (1) ESRF (end stage renal failure) (2) Sepsis Assessment: ? line related (3) Diabetes mellitus (4) Pleural effusion (5) Anemia (6) Bradycardia Assessment ESRD - Has right chest permacath Anemia Leukocytosis Pleural effusion Bradycardia troponin elevation cardiomyopathy . Plan Antibiotics HD 02/25 done 2D echo 40% start midodrine Subjective ROS Limited/Unobtainable: No Constitutional: Reports: malaise Objective Objective Last 24 Hour Vital Signs Date Time Temp Pulse Resp B/P (MAP) Pulse Ox O2 Delivery O2 Flow Rate FiO2 02/26/19 12:00 97.7 69 20 120/59 (79) 99 02/26/19 09:00 Venturi Mask 14.0 02/26/19 08:00 14.0 55 02/26/19 08:00 66 02/26/19 08:00 97.7 67 18 118/58 (78) 93 02/26/19 07:00 66 14 94 Venturi Mask 14.0 55 02/26/19 07:00 94 Venturi Mask 14.0 55 02/26/19 04:00 63 02/26/19 04:00 14.0 55 02/26/19 04:00 97.7 66 18 117/64 (81) 98 02/26/19 00:12 14.0 55 02/26/19 00:00 97.2 64 18 114/70 (85) 98 02/26/19 00:00 64 02/25/19 21:00 Venturi Mask 14.0 02/25/19 20:00 14.0 55 02/25/19 20:00 97.7 64 18 116/63 (80) 98 02/25/19 20:00 63 02/25/19 19:41 60 16 96 Venturi Mask 14.0 55 02/25/19 19:41 96 Venturi Mask 14.0 55 02/25/19 16:00 61 02/25/19 16:00 14.0 55 02/25/19 16:00 97.0 61 18 120/71 (87) 98 Intake and Output 02/25/19 02/26/19 19:00 07:00 Intake Total 120 ml Output Total 1000 ml 1 ml Balance -880 ml -1 ml Intake Oral 120 ml Output Urine Total 1 ml Stool Total 0 ml Hemodialysis UF 1000 ml Height (Feet): 5 Height (Inches): 8.00 Weight (Pounds): 165 General Appearance: no apparent distress Cardiovascular: normal rate Respiratory/Chest: decreased breath sounds Abdomen: soft, distended Magan Lara MD Feb 26, 2019 13:42
--- NOTE | 2019-02-26 15:51 | Pulmonology Progress Note ---
Assessment/Plan Problems: (1) Sepsis (2) Gram-positive bacteremia (3) Pleural effusion (4) Intractable abdominal pain (5) ESRF (end stage renal failure) (6) Diabetes mellitus (7) Hypertension (8) Cognitive impairment Assessment/Plan mg tube for feeding started repeat blood cultures are pending WBC decreasing. BC positive for Staph aureus symptomatic treatment titrate fio2 to sat of 92% check electrolytes HD by nephrology echocardiogram sliding scale dvt prophylaxis. Subjective ROS Limited/Unobtainable: Yes Interval Events: somnolet Allergies: Coded Allergies: No Known Allergies (Unverified , 01/29/19) Objective Last 24 Hour Vital Signs Date Time Temp Pulse Resp B/P (MAP) Pulse Ox O2 Delivery O2 Flow Rate FiO2 02/26/19 12:00 14.0 55 02/26/19 12:00 97.7 69 20 120/59 (79) 99 02/26/19 09:00 Venturi Mask 14.0 02/26/19 08:00 14.0 55 02/26/19 08:00 66 02/26/19 08:00 97.7 67 18 118/58 (78) 93 02/26/19 07:00 66 14 94 Venturi Mask 14.0 55 02/26/19 07:00 94 Venturi Mask 14.0 55 02/26/19 04:00 63 02/26/19 04:00 14.0 55 02/26/19 04:00 97.7 66 18 117/64 (81) 98 02/26/19 00:12 14.0 55 02/26/19 00:00 97.2 64 18 114/70 (85) 98 02/26/19 00:00 64 02/25/19 21:00 Venturi Mask 14.0 02/25/19 20:00 14.0 55 02/25/19 20:00 97.7 64 18 116/63 (80) 98 02/25/19 20:00 63 02/25/19 19:41 60 16 96 Venturi Mask 14.0 55 02/25/19 19:41 96 Venturi Mask 14.0 55 02/25/19 16:00 61 02/25/19 16:00 14.0 55 02/25/19 16:00 97.0 61 18 120/71 (87) 98 Intake and Output 02/25/19 02/26/19 19:00 07:00 Intake Total 120 ml Output Total 1000 ml 1 ml Balance -880 ml -1 ml Intake Oral 120 ml Output Urine Total 1 ml Stool Total 0 ml Hemodialysis UF 1000 ml General Appearance: WD/WN HEENT: normocephalic, atraumatic Respiratory/Chest: chest wall non-tender, crackles/rales Cardiovascular: normal peripheral pulses, normal rate Abdomen: normal bowel sounds, soft, non tender Genitourinary: normal external genitalia Extremities: no cyanosis Skin: no ulcers Neurologic/Psychiatric: no motor/sensory deficits Lymphatic: no neck adenopathy Musculoskeletal: normal muscle bulk Microbiology Date/Time Source Procedure Growth Status 02/25/19 12:00 Blood Blood Culture - Preliminary Resulted 02/24/19 11:30 Blood Blood Culture - Preliminary Resulted 02/24/19 11:20 Blood Blood Culture - Preliminary Resulted Current Medications Medications (Trade) Dose Ordered Sig/Feli Route PRN Reason Start Time Stop Time Status Last Admin Dose Admin Acetaminophen (Tylenol) 650 mg Q4H PRN ORAL FEVER 02/21/19 20:45 03/23/19 20:44 02/24/19 03:18 Albuterol/ Ipratropium (Albuterol/ Ipratropium) 3 ml Q4H PRN HHN Shortness of Breath 02/21/19 20:45 02/26/19 20:44 Cefepime HCl 0.5 gm/Dextrose 55 ml @ 110 mls/hr Q24H IVPB 02/24/19 23:00 03/03/19 22:59 02/25/19 23:23 Chlorhexidine Gluconate (Kiara-Hex 2%) 1 applic DAILY@2000 TOPIC 02/23/19 20:00 03/25/19 19:59 02/25/19 21:12 Dextrose (Dextrose 50%) 25 ml Q30M PRN IV Hypoglycemia 02/21/19 20:45 03/23/19 20:44 Dextrose (Dextrose 50%) 50 ml Q30M PRN IV Hypoglycemia 02/21/19 20:45 03/23/19 20:44 Heparin Sodium (Porcine) (Heparin 5000 units/ml) 5,000 units EVERY 8 HOURS SUBQ 02/23/19 16:00 03/25/19 15:59 Insulin Aspart (NovoLOG) BEFORE MEALS AND HS SUBQ 02/21/19 21:00 03/23/19 20:59 02/24/19 12:26 Megestrol Acetate (Megace) 400 mg TWICE A DAY ORAL 02/23/19 18:00 03/25/19 17:59 02/25/19 10:12 Midodrine (Pro-Amatine) 10 mg THREE TIMES A DAY ORAL 02/23/19 18:00 03/25/19 17:59 02/26/19 13:16 Ondansetron HCl (Zofran) 4 mg Q6H PRN IVP Nausea & Vomiting 02/21/19 20:45 03/23/19 20:44 Pantoprazole (Protonix) 40 mg EVERY 12 HOURS IVP 02/22/19 10:30 03/24/19 10:29 02/26/19 09:00 Polyethylene Glycol (Miralax) 17 gm DAILYPRN PRN ORAL Constipation 02/21/19 20:45 03/23/19 20:44 Promethazine HCl/ Codeine (Phenergan with Codeine) 5 ml Q4H PRN ORAL For Cough 02/21/19 20:45 03/23/19 20:44 Sevelamer Carbonate (Renvela) 1,600 mg THREE TIMES A DAY ORAL 02/25/19 18:28 03/27/19 18:27 02/26/19 13:16 Vancomycin HCl (Vanco rx to dose) 1 ea DAILY PRN MISC Per rx protocol 02/22/19 10:15 03/24/19 10:14 Maurizio Rose MD Feb 26, 2019 15:51
[2019-02-26 16:00] VITALS: BP 129/89
--- NOTE | 2019-02-26 17:14 | General Progress Note ---
Assessment/Plan Assessment/Plan: GI CONSULT Dictated Will place NGT for feeding, until mental and clinical status evaluated Thank you Patricia Camejo MD Subjective Allergies: Coded Allergies: No Known Allergies (Unverified , 01/29/19) Objective Last 24 Hour Vital Signs Date Time Temp Pulse Resp B/P (MAP) Pulse Ox O2 Delivery O2 Flow Rate FiO2 02/26/19 16:00 14.0 55 02/26/19 16:00 98.6 68 22 129/89 (102) 100 02/26/19 12:00 14.0 55 02/26/19 12:00 97.7 69 20 120/59 (79) 99 02/26/19 12:00 64 02/26/19 09:00 Venturi Mask 14.0 02/26/19 08:00 14.0 55 02/26/19 08:00 66 02/26/19 08:00 97.7 67 18 118/58 (78) 93 02/26/19 07:00 66 14 94 Venturi Mask 14.0 55 02/26/19 07:00 94 Venturi Mask 14.0 55 02/26/19 04:00 63 02/26/19 04:00 14.0 55 02/26/19 04:00 97.7 66 18 117/64 (81) 98 02/26/19 00:12 14.0 55 02/26/19 00:00 97.2 64 18 114/70 (85) 98 02/26/19 00:00 64 02/25/19 21:00 Venturi Mask 14.0 02/25/19 20:00 14.0 55 02/25/19 20:00 97.7 64 18 116/63 (80) 98 02/25/19 20:00 63 02/25/19 19:41 60 16 96 Venturi Mask 14.0 55 02/25/19 19:41 96 Venturi Mask 14.0 55 Intake and Output 02/25/19 02/26/19 19:00 07:00 Intake Total 120 ml Output Total 1000 ml 1 ml Balance -880 ml -1 ml Intake Oral 120 ml Output Urine Total 1 ml Stool Total 0 ml Hemodialysis UF 1000 ml Height (Feet): 5 Height (Inches): 8.00 Weight (Pounds): 165 Guzman Camejo MD Feb 26, 2019 17:14
--- NOTE | 2019-02-26 19:09 | NUR ---
HAND-OFF: Report given to Dari Judge. Plan of care endorsed.
[2019-02-26 20:00] VITALS: BP 136/60
--- NOTE | 2019-02-26 20:00 | NUR ---
NURSE NOTES: Received patient from Kaley PETERSON. Patient in bed, on venturi mask 12L 50% FiO2. Skin breakdown noted on left upper ear where the oxygen mask strap touches the ear. Optifoam applied on both sides. No signs of respiratory distress. No residual from NG tube, on nepro at 20ml/hr. Bilateral soft wrist restraints on, no signs of trauma or skin breakdown at the site, peripheral pulses present. Bed in low position, locked, bed alarm sales promotion officer light within reach. Addendum: 02/27/19 at 0017 by Alfie Taylor RN left and right upper ear
[2019-02-26] MEDS: Dyna-Hex 2% Top Sol 2oz TOPIC SCH (21:36)
--- NOTE | 2019-02-26 22:00 | NUR ---
NURSE NOTES: Patient's family refused heparin sq.
[2019-02-26] MEDS: Cefepime HCl 0.5 GM in D5W 55 ML IVPB SCH (23:10)
--- NOTE | 2019-02-26 23:15 | NUR ---
NURSE NOTES: Patient moaning, medicated with tylenol 650mg for possible pain.
--- NOTE | 2019-02-26 23:45 | NUR ---
NURSE NOTES: Chlorohexidine bath given. Oral care provided.
[2019-02-27] VITALS: BP 121/67
[2019-02-27 04:00] VITALS: BP 117/58
[2019-02-27] MEDS: NovoLOG Insulin Flexpen SUBQ SCH ×4 (05:09→20:38)
[2019-02-27] MEDS: Heparin 5000 units/ml inj SUBQ SCH ×3 (05:52→22:02)
[2019-02-27 07:14] LABS: BASOPHILS % (AUTO) 1.2 % (0.0-2.0); HEMATOCRIT 31.9 % (42.0-52.0); HEMOGLOBIN 9.9 G/DL (14.2-18.0); LYMPHOCYTES % (AUTO) 18.7 % (20.0-45.0); MEAN CORPUSCULAR VOLUME 94 FL (80-99); MONOCYTES % (AUTO) 13.5 % (1.0-10.0); NEUTROPHILS % (AUTO) 64.7 % (45.0-75.0); PLATELET COUNT 130 K/UL (150-450); RED CELL DISTRIBUTION WIDTH 18.2 % (11.6-14.8); WHITE BLOOD COUNT 6.3 K/UL (4.8-10.8)
--- NOTE | 2019-02-27 07:22 | NUR ---
HAND-OFF: Report given to Kaley PETERSON.
--- NOTE | 2019-02-27 07:51 | NUR ---
NURSE NOTES: Received patient from Dari Judge. Patient lethargic arousable to name. occasional moans and groans noted. patient turned and repositioned for comfort. Venturi mask 14L 55% O2 sat 96-98%. lungs scattered ronchi. Dr. Rose in to see patient updated re: patient status. Left nare NGT patent and intact running nepr@ 20 ML/hr. B/L soft wrist restraints noted will monitor patient all throughout this shift.
[2019-02-27 08:00] VITALS: BP 117/62
[2019-02-27 08:21] LABS: ALANINE AMINOTRANSFERASE 17 U/L (12-78); ALBUMIN/GLOBULIN RATIO 0.4 (1.0-2.7); ALKALINE PHOSPHATASE 181 U/L (46-116); ANION GAP 12 mmol/L (5-15); ASPARTATE AMINO TRANSFERASE 20 U/L (15-37); BILIRUBIN,TOTAL 1.6 MG/DL (0.2-1.0); BLOOD UREA NITROGEN 80 mg/dL (7-18); CALCIUM 8.3 MG/DL (8.5-10.1); CARBON DIOXIDE 24 MMOL/L (21-32); CHLORIDE 105 MMOL/L (98-107); CREATININE 6.5 MG/DL (0.55-1.30); POTASSIUM 4.8 MMOL/L (3.5-5.1); SODIUM 141 MMOL/L (136-145)
[2019-02-27] MEDS: Renvela 800mg Pkt ORAL SCH ×3 (08:42→17:56)
[2019-02-27] MEDS: Pantoprazole Inj IVP SCH ×2 (08:42→20:27)
[2019-02-27] MEDS: Midodrine 10mg tab ORAL SCH ×3 (08:42→17:57)
[2019-02-27 09:00] LABS: BILIRUBIN,DIRECT 1.2 MG/DL (0.0-0.3); PHOSPHORUS 6.3 MG/DL (2.5-4.9)
--- NOTE | 2019-02-27 11:30 | NUR ---
NURSE NOTES: Patient noted with increase congestions, lethargic but remains arousable to name and touch. nasal suction by RT removed thick guzman secretions. Lungs with scttered ronchi. OXygen saturation remains @96-98% on 14 L venturi mask with 50%Fio2. Dr. Lara in to see patinet and oredered STAT Chest Xray and ABG. Dr. Rose updated re: Patient condition and ordered to transfer patient to [facility]. Family at bedside and aware of pending transfer to [facility]. Will follow.
[2019-02-27 12:00] VITALS: BP 119/64
--- NOTE | 2019-02-27 12:40 | Diagnostic Imaging Report ---
EXAM: XR Chest, 1 View CLINICAL HISTORY: COPD TECHNIQUE: Frontal view of the chest. COMPARISON: Chest radiograph on 02/23/2019 FINDINGS: Hardware: Right dual-lumen central venous catheter terminates in the region of the SVC. Interval placement of an enteric tube which courses past the diaphragm and out of the [id number]. Lungs/pleura: Similar right greater than left pleural effusions with associated atelectasis versus pneumonia. Background of pulmonary edema. Heart/mediastinum: Stable enlargement of the cardiomediastinal silhouette. Soft tissues: Unremarkable. Bones: No acute fracture. Degenerative changes of the visualized right acromioclavicular joint and spine Upper abdomen: Normal. IMPRESSION: 1. Right dual-lumen central venous catheter terminates in the region of the SVC. Interval placement of an enteric tube which courses past the diaphragm and out of the [id number]. 2. Similar right greater than left pleural effusions with associated atelectasis versus pneumonia. Background of pulmonary edema.
[2019-02-27] MEDS ORDERED: Promethazine/Codeine 5ml UD ORAL PRN (13:00)
--- NOTE | 2019-02-27 13:00 | General Progress Note ---
Assessment/Plan Assessment/Plan: Assessment - AMS / dysphagia - tolerating NGT feeds - respiratory failure - CHF - abnormal LFT - ? passive congestion - anemia - Renal failure - Poor Px Recommendations - slowly increase TF - elevate HOB - pulmonary follow up - monitor residuals Subjective Allergies: Coded Allergies: No Known Allergies (Unverified , 01/29/19) Objective Last 24 Hour Vital Signs Date Time Temp Pulse Resp B/P (MAP) Pulse Ox O2 Delivery O2 Flow Rate FiO2 02/27/19 12:00 12.0 50 02/27/19 12:00 68 02/27/19 12:00 98.2 68 22 119/64 (82) 99 02/27/19 09:37 93 Venturi Mask 14.0 55 02/27/19 09:00 Venturi Mask 14.0 02/27/19 08:00 12.0 50 02/27/19 08:00 66 02/27/19 08:00 98.1 68 22 117/62 (80) 99 02/27/19 04:00 65 02/27/19 04:00 97.7 66 20 117/58 (77) 99 02/27/19 04:00 12.0 50 02/27/19 00:00 12.0 50 02/27/19 00:00 65 02/27/19 00:00 98.2 65 20 121/67 (85) 98 02/26/19 21:00 Venturi Mask 14.0 02/26/19 21:00 Venturi Mask 14.0 02/26/19 20:00 98.2 65 20 136/60 (85) 100 02/26/19 20:00 64 02/26/19 20:00 12.0 50 02/26/19 19:00 68 14 95 Venturi Mask 14.0 55 02/26/19 19:00 95 Venturi Mask 14.0 55 02/26/19 18:00 67 02/26/19 16:00 14.0 55 02/26/19 16:00 98.6 68 22 129/89 (102) 100 Intake and Output 02/26/19 02/27/19 19:00 07:00 Intake Total 150 ml 365 ml Balance 150 ml 365 ml Free Water 30 ml 90 ml IV Total 55 ml Tube Feeding 120 ml 220 ml Laboratory Tests 02/27/19 06:20: White Blood Count 6.3, Red Blood Count 3.40L, Hemoglobin 9.9L, Hematocrit 31.9L , Mean Corpuscular Volume 94, Mean Corpuscular Hemoglobin 29.2, Mean Corpuscular Hemoglobin Concent 31.1L, Red Cell Distribution Width 18.2H, Platelet Count 130L, Mean Platelet Volume 6.5, Neutrophils (%) (Auto) 64.7, Lymphocytes (%) (Auto) 18.7L, Monocytes (%) (Auto) 13.5H, Eosinophils (%) (Auto ) 2.0, Basophils (%) (Auto) 1.2, Sodium Level 141, Potassium Level 4.8, Chloride Level 105, Carbon Dioxide Level 24, Anion Gap 12, Blood Urea Nitrogen 80H, Creatinine 6.5H, Estimat Glomerular Filtration Rate 8.6, Glucose Level 154H , Calcium Level 8.3L, Phosphorus Level 6.3H, Magnesium Level 2.6H, Total Bilirubin 1.6H, Direct Bilirubin 1.2H, Aspartate Amino Transf (AST/SGOT) 20, Alanine Aminotransferase (ALT/SGPT) 17, Alkaline Phosphatase 181H, C-Reactive Protein, Quantitative 9.2H, Pro-B-Type Natriuretic Peptide > 62353Q, Total Protein 7.1, Albumin 2.0L, Globulin 5.1, Albumin/Globulin Ratio 0.4L, Random Vancomycin Level 23.3 02/27/19 11:45: Arterial Blood pH 7.317L, Arterial Blood Partial Pressure CO2 44.2, Arterial Blood Partial Pressure O2 88.8, Arterial Blood HCO3 22.1, Arterial Blood Oxygen Saturation 95.3, Arterial Blood Base Excess -3.9L, Shai Test Positive Height (Feet): 5 Height (Inches): 8.00 Weight (Pounds): 162 Guzman Camejo MD Feb 27, 2019 13:00
--- NOTE | 2019-02-27 13:15 | NUR ---
TRANSFER TO FLOOR: Patient transferred to Rm [id number]. Report given to Dari Juares. Family present at the time of tranfer.
--- NOTE | 2019-02-27 13:20 | NUR ---
NURSE NOTES: Received patient from KRISTEN Baker. Patient in bed, on 50% venturi mask. Skin breakdown noted on left upper ear where the oxygen mask strap touches the ear. Optifoam applied on both sides. No signs of respiratory distress. No residual from NG tube, on nepro at 30ml/hr. Bilateral soft wrist restraints dc'ed. Bed in low position, locked, bed alarm hotel concierge light within reach. Will continue POC
--- NOTE | 2019-02-27 14:04 | Nephrology Progress Note ---
Assessment/Plan Problem List: (1) ESRF (end stage renal failure) (2) Sepsis Assessment: ? line related (3) Diabetes mellitus (4) Pleural effusion (5) Anemia (6) Bradycardia Assessment ESRD - Has right chest permacath Anemia Leukocytosis Pleural effusion Bradycardia troponin elevation cardiomyopathy . Plan Antibiotics HD 02/25 done 2D echo 40% start midodrine Subjective ROS Limited/Unobtainable: No Objective Objective Last 24 Hour Vital Signs Date Time Temp Pulse Resp B/P (MAP) Pulse Ox O2 Delivery O2 Flow Rate FiO2 02/27/19 12:00 12.0 50 02/27/19 12:00 68 02/27/19 12:00 98.2 68 22 119/64 (82) 99 02/27/19 09:37 93 Venturi Mask 14.0 55 02/27/19 09:00 Venturi Mask 14.0 02/27/19 08:00 12.0 50 02/27/19 08:00 66 02/27/19 08:00 98.1 68 22 117/62 (80) 99 02/27/19 04:00 65 02/27/19 04:00 97.7 66 20 117/58 (77) 99 02/27/19 04:00 12.0 50 02/27/19 00:00 12.0 50 02/27/19 00:00 65 02/27/19 00:00 98.2 65 20 121/67 (85) 98 02/26/19 21:00 Venturi Mask 14.0 02/26/19 21:00 Venturi Mask 14.0 02/26/19 20:00 98.2 65 20 136/60 (85) 100 02/26/19 20:00 64 02/26/19 20:00 12.0 50 02/26/19 19:00 68 14 95 Venturi Mask 14.0 55 02/26/19 19:00 95 Venturi Mask 14.0 55 02/26/19 18:00 67 02/26/19 16:00 14.0 55 02/26/19 16:00 98.6 68 22 129/89 (102) 100 Intake and Output 02/26/19 02/27/19 19:00 07:00 Intake Total 150 ml 365 ml Balance 150 ml 365 ml Free Water 30 ml 90 ml IV Total 55 ml Tube Feeding 120 ml 220 ml Laboratory Tests 02/27/19 06:20: White Blood Count 6.3, Red Blood Count 3.40L, Hemoglobin 9.9L, Hematocrit 31.9L , Mean Corpuscular Volume 94, Mean Corpuscular Hemoglobin 29.2, Mean Corpuscular Hemoglobin Concent 31.1L, Red Cell Distribution Width 18.2H, Platelet Count 130L, Mean Platelet Volume 6.5, Neutrophils (%) (Auto) 64.7, Lymphocytes (%) (Auto) 18.7L, Monocytes (%) (Auto) 13.5H, Eosinophils (%) (Auto ) 2.0, Basophils (%) (Auto) 1.2, Sodium Level 141, Potassium Level 4.8, Chloride Level 105, Carbon Dioxide Level 24, Anion Gap 12, Blood Urea Nitrogen 80H, Creatinine 6.5H, Estimat Glomerular Filtration Rate 8.6, Glucose Level 154H , Calcium Level 8.3L, Phosphorus Level 6.3H, Magnesium Level 2.6H, Total Bilirubin 1.6H, Direct Bilirubin 1.2H, Aspartate Amino Transf (AST/SGOT) 20, Alanine Aminotransferase (ALT/SGPT) 17, Alkaline Phosphatase 181H, C-Reactive Protein, Quantitative 9.2H, Pro-B-Type Natriuretic Peptide > 88126D, Total Protein 7.1, Albumin 2.0L, Globulin 5.1, Albumin/Globulin Ratio 0.4L, Random Vancomycin Level 23.3 02/27/19 11:45: Arterial Blood pH 7.317L, Arterial Blood Partial Pressure CO2 44.2, Arterial Blood Partial Pressure O2 88.8, Arterial Blood HCO3 22.1, Arterial Blood Oxygen Saturation 95.3, Arterial Blood Base Excess -3.9L, Shai Test Positive Height (Feet): 5 Height (Inches): 8.00 Weight (Pounds): 162 General Appearance: no apparent distress, lethargic Cardiovascular: normal rate Respiratory/Chest: decreased breath sounds Abdomen: distended Magan Lara MD Feb 27, 2019 14:04
--- NOTE | 2019-02-27 15:28 | Cardiology Progress Note ---
Assessment/Plan Assessment/Plan chf cm no sig cad bacteremi esrd on hemodislysis altered mentation d/w dr dickey to consider neuro evaluation cath 07/2018 lacusc: lm 20% distally , lad 20% mid , lcx 30% , rca MLIs wbc is stable is not febrile not appear is worse chf still i Subjective ROS Limited/Unobtainable: Yes Subjective at bedside pt has not communicated with them erin ll Objective Last 24 Hour Vital Signs Date Time Temp Pulse Resp B/P (MAP) Pulse Ox O2 Delivery O2 Flow Rate FiO2 02/27/19 12:00 12.0 50 02/27/19 12:00 68 02/27/19 12:00 98.2 68 22 119/64 (82) 99 02/27/19 09:37 93 Venturi Mask 14.0 55 02/27/19 09:00 Venturi Mask 14.0 02/27/19 08:00 12.0 50 02/27/19 08:00 66 02/27/19 08:00 98.1 68 22 117/62 (80) 99 02/27/19 04:00 65 02/27/19 04:00 97.7 66 20 117/58 (77) 99 02/27/19 04:00 12.0 50 02/27/19 00:00 12.0 50 02/27/19 00:00 65 02/27/19 00:00 98.2 65 20 121/67 (85) 98 02/26/19 21:00 Venturi Mask 14.0 02/26/19 21:00 Venturi Mask 14.0 02/26/19 20:00 98.2 65 20 136/60 (85) 100 02/26/19 20:00 64 02/26/19 20:00 12.0 50 02/26/19 19:00 68 14 95 Venturi Mask 14.0 55 02/26/19 19:00 95 Venturi Mask 14.0 55 02/26/19 18:00 67 02/26/19 16:00 14.0 55 02/26/19 16:00 98.6 68 22 129/89 (102) 100 General Appearance: no apparent distress, other - min responsive Neck: supple Cardiovascular: normal rate Respiratory/Chest: lungs clear Abdomen: normal bowel sounds, non tender, soft Extremities: no swelling Intake and Output 02/26/19 02/27/19 19:00 07:00 Intake Total 150 ml 365 ml Balance 150 ml 365 ml Free Water 30 ml 90 ml IV Total 55 ml Tube Feeding 120 ml 220 ml Laboratory Tests Test 02/27/19 06:20 02/27/19 11:45 White Blood Count 6.3 K/UL (4.8-10.8) Red Blood Count 3.40 M/UL (4.70-6.10) L Hemoglobin 9.9 G/DL (14.2-18.0) L Hematocrit 31.9 % (42.0-52.0) L Mean Corpuscular Volume 94 FL (80-99) Mean Corpuscular Hemoglobin 29.2 PG (27.0-31.0) Mean Corpuscular Hemoglobin Concent 31.1 G/DL (32.0-36.0) L Red Cell Distribution Width 18.2 % (11.6-14.8) H Platelet Count 130 K/UL (150-450) L Mean Platelet Volume 6.5 FL (6.5-10.1) Neutrophils (%) (Auto) 64.7 % (45.0-75.0) Lymphocytes (%) (Auto) 18.7 % (20.0-45.0) L Monocytes (%) (Auto) 13.5 % (1.0-10.0) H Eosinophils (%) (Auto) 2.0 % (0.0-3.0) Basophils (%) (Auto) 1.2 % (0.0-2.0) Sodium Level 141 MMOL/L (136-145) Potassium Level 4.8 MMOL/L (3.5-5.1) Chloride Level 105 MMOL/L (98-107) Carbon Dioxide Level 24 MMOL/L (21-32) Anion Gap 12 mmol/L (5-15) Blood Urea Nitrogen 80 mg/dL (7-18) H Creatinine 6.5 MG/DL (0.55-1.30) H Estimat Glomerular Filtration Rate 8.6 mL/min (>60) Glucose Level 154 MG/DL (74-106) H Calcium Level 8.3 MG/DL (8.5-10.1) L Phosphorus Level 6.3 MG/DL (2.5-4.9) H Magnesium Level 2.6 MG/DL (1.8-2.4) H Total Bilirubin 1.6 MG/DL (0.2-1.0) H Direct Bilirubin 1.2 MG/DL (0.0-0.3) H Aspartate Amino Transf (AST/SGOT) 20 U/L (15-37) Alanine Aminotransferase (ALT/SGPT) 17 U/L (12-78) Alkaline Phosphatase 181 U/L (46-116) H C-Reactive Protein, Quantitative 9.2 mg/dL (0.00-0.90) H Pro-B-Type Natriuretic Peptide > 35132 pg/mL (0-125) H Total Protein 7.1 G/DL (6.4-8.2) Albumin 2.0 G/DL (3.4-5.0) L Globulin 5.1 g/dL Albumin/Globulin Ratio 0.4 (1.0-2.7) L Random Vancomycin Level 23.3 ug/mL Arterial Blood pH 7.317 (7.350-7.450) Arterial Blood Partial Pressure CO2 44.2 mmHg (35.0-45.0) Arterial Blood Partial Pressure O2 88.8 mmHg (75.0-100.0) Arterial Blood HCO3 22.1 mmol/L (22.0-26.0) Arterial Blood Oxygen Saturation 95.3 % (95-100) Arterial Blood Base Excess -3.9 (-2-2) L Shai Test Positive Microbiology Date/Time Source Procedure Growth Status 02/25/19 12:00 Blood Blood Culture - Preliminary Staphylococcus Aureus Resulted Enio Soto MD Feb 27, 2019 15:28
--- NOTE | 2019-02-27 15:38 | Pulmonology Progress Note ---
Assessment/Plan Problems: (1) Sepsis (2) Gram-positive bacteremia (3) Pleural effusion (4) Intractable abdominal pain (5) ESRF (end stage renal failure) (6) Diabetes mellitus (7) Hypertension (8) Cognitive impairment Assessment/Plan CT of head mg tube for feeding started repeat blood cultures are pending WBC decreasing. BC positive for Staph aureus symptomatic treatment titrate fio2 to sat of 92% check electrolytes HD by nephrology echocardiogram sliding scale dvt prophylaxis. Subjective ROS Limited/Unobtainable: No Constitutional: Reports: no symptoms HEENT: Repors: no symptoms Respiratory: Reports: no symptoms Allergies: Coded Allergies: No Known Allergies (Unverified , 01/29/19) Objective Last 24 Hour Vital Signs Date Time Temp Pulse Resp B/P (MAP) Pulse Ox O2 Delivery O2 Flow Rate FiO2 02/27/19 12:00 12.0 50 02/27/19 12:00 68 02/27/19 12:00 98.2 68 22 119/64 (82) 99 02/27/19 09:37 93 Venturi Mask 14.0 55 02/27/19 09:00 Venturi Mask 14.0 02/27/19 08:00 12.0 50 02/27/19 08:00 66 02/27/19 08:00 98.1 68 22 117/62 (80) 99 02/27/19 04:00 65 02/27/19 04:00 97.7 66 20 117/58 (77) 99 02/27/19 04:00 12.0 50 02/27/19 00:00 12.0 50 02/27/19 00:00 65 02/27/19 00:00 98.2 65 20 121/67 (85) 98 02/26/19 21:00 Venturi Mask 14.0 02/26/19 21:00 Venturi Mask 14.0 02/26/19 20:00 98.2 65 20 136/60 (85) 100 02/26/19 20:00 64 02/26/19 20:00 12.0 50 02/26/19 19:00 68 14 95 Venturi Mask 14.0 55 02/26/19 19:00 95 Venturi Mask 14.0 55 02/26/19 18:00 67 02/26/19 16:00 14.0 55 02/26/19 16:00 98.6 68 22 129/89 (102) 100 Intake and Output 02/26/19 02/27/19 19:00 07:00 Intake Total 150 ml 365 ml Balance 150 ml 365 ml Free Water 30 ml 90 ml IV Total 55 ml Tube Feeding 120 ml 220 ml General Appearance: WD/WN HEENT: normocephalic, atraumatic Respiratory/Chest: chest wall non-tender, lungs clear Cardiovascular: normal peripheral pulses, normal rate Abdomen: normal bowel sounds, soft, non tender Genitourinary: normal external genitalia Extremities: no cyanosis Neurologic/Psychiatric: photographer II-XII grossly normal Lymphatic: no neck adenopathy Musculoskeletal: normal muscle bulk Microbiology Date/Time Source Procedure Growth Status 02/25/19 12:00 Blood Blood Culture - Preliminary Staphylococcus Aureus Resulted Laboratory Tests 02/27/19 06:20: White Blood Count 6.3, Red Blood Count 3.40L, Hemoglobin 9.9L, Hematocrit 31.9L , Mean Corpuscular Volume 94, Mean Corpuscular Hemoglobin 29.2, Mean Corpuscular Hemoglobin Concent 31.1L, Red Cell Distribution Width 18.2H, Platelet Count 130L, Mean Platelet Volume 6.5, Neutrophils (%) (Auto) 64.7, Lymphocytes (%) (Auto) 18.7L, Monocytes (%) (Auto) 13.5H, Eosinophils (%) (Auto ) 2.0, Basophils (%) (Auto) 1.2, Sodium Level 141, Potassium Level 4.8, Chloride Level 105, Carbon Dioxide Level 24, Anion Gap 12, Blood Urea Nitrogen 80H, Creatinine 6.5H, Estimat Glomerular Filtration Rate 8.6, Glucose Level 154H , Calcium Level 8.3L, Phosphorus Level 6.3H, Magnesium Level 2.6H, Total Bilirubin 1.6H, Direct Bilirubin 1.2H, Aspartate Amino Transf (AST/SGOT) 20, Alanine Aminotransferase (ALT/SGPT) 17, Alkaline Phosphatase 181H, C-Reactive Protein, Quantitative 9.2H, Pro-B-Type Natriuretic Peptide > 02353S, Total Protein 7.1, Albumin 2.0L, Globulin 5.1, Albumin/Globulin Ratio 0.4L, Random Vancomycin Level 23.3 02/27/19 11:45: Arterial Blood pH 7.317L, Arterial Blood Partial Pressure CO2 44.2, Arterial Blood Partial Pressure O2 88.8, Arterial Blood HCO3 22.1, Arterial Blood Oxygen Saturation 95.3, Arterial Blood Base Excess -3.9L, Shai Test Positive Current Medications Medications (Trade) Dose Ordered Sig/Feli Route PRN Reason Start Time Stop Time Status Last Admin Dose Admin Acetaminophen (Tylenol) 650 mg Q4H PRN ORAL FEVER 02/27/19 13:00 03/23/19 12:59 Cefepime HCl 0.5 gm/Dextrose 55 ml @ 110 mls/hr Q24H IVPB 02/27/19 23:00 03/03/19 22:59 Chlorhexidine Gluconate (Kiara-Hex 2%) 1 applic DAILY@2000 TOPIC 02/27/19 20:00 03/25/19 19:59 Dextrose (Dextrose 50%) 25 ml Q30M PRN IV Hypoglycemia 02/27/19 13:15 03/23/19 20:44 Dextrose (Dextrose 50%) 50 ml Q30M PRN IV Hypoglycemia 02/27/19 13:15 03/23/19 20:44 Heparin Sodium (Porcine) (Heparin 5000 units/ml) 5,000 units EVERY 8 HOURS SUBQ 02/27/19 14:00 03/25/19 15:59 Insulin Aspart (NovoLOG) BEFORE MEALS AND HS SUBQ 02/27/19 16:30 03/23/19 20:59 Midodrine (Pro-Amatine) 10 mg THREE TIMES A DAY ORAL 02/27/19 13:00 03/25/19 17:59 02/27/19 14:56 Ondansetron HCl (Zofran) 4 mg Q6H PRN IVP Nausea & Vomiting 02/27/19 14:45 03/23/19 20:44 Pantoprazole (Protonix) 40 mg EVERY 12 HOURS IVP 02/27/19 21:00 03/24/19 10:29 Polyethylene Glycol (Miralax) 17 gm DAILYPRN PRN ORAL Constipation 02/27/19 20:45 03/23/19 20:44 Promethazine HCl/ Codeine (Phenergan with Codeine) 5 ml Q4H PRN ORAL For Cough 02/27/19 13:00 03/23/19 12:59 02/27/19 15:03 Sevelamer Carbonate (Renvela) 1,600 mg THREE TIMES A DAY ORAL 02/27/19 13:00 03/27/19 18:27 02/27/19 14:56 Vancomycin HCl (Vanco rx to dose) 1 ea DAILY PRN MISC Per rx protocol 02/28/19 09:00 03/24/19 10:14 Maurizio Rose MD Feb 27, 2019 15:38
[2019-02-27] MEDS ORDERED: Sterile Water Irrig 1000ml IRRIG ONE (15:42)
[2019-02-27 16:00] VITALS: BP 110/68
--- NOTE | 2019-02-27 17:02 | Diagnostic Imaging Report ---
Indications: Altered level of consciousness Technique: Spiral acquisitions obtained through the brain. Angled axial and coronal 5 x 5 mm slices were reconstructed. Total dose length product 1304 mGycm. CTDI vol(s) 60 mGy. Dose reduction achieved using automated exposure control Comparison: None. Findings: No acute adrenal hemorrhage or edema. No mass effect nor midline shift. There is minimal age-related enlargement of the ventricles and extra axial CSF spaces. There is minimal periventricular deep white matter low-attenuation, consistent with chronic microvascular ischemic change. There is a small scalp hematoma at the vertex. There is evidence of prior bilateral cataract surgery. There or bilateral maxillary sinus polyps versus mucous retention cysts. The mastoids are clear. The calvarium is intact. Impression: Negative for acute intracranial bleed or mass effect Small scalp hematoma Chronic and age-related changes Sinus disease This agrees with the preliminary interpretation provided overnight by [facility]. The CT scanner at [facility] is accredited by the [employer] and the scans are performed using protocols designed to limit radiation exposure to as low as reasonably achievable to attain images of sufficient resolution adequate for diagnostic evaluation.
--- NOTE | 2019-02-27 19:20 | NUR ---
NURSE NOTES: Received report from Tami Juares, RN, pt. received in bed obtunded, pt. is non-verbal, no signs or symptoms of acute cardiac or respiratory distress noted, bed alarm on, side rails up x's 3 and safety brakes engaged, family at bedside, call light within easy reach, pt. has left NGT intact- nephro running at 30cc/hr- no residual noted, pt. appears to be sating well on current Venturi mask settings, pt. is anuric per endorsement, LFA 22G iv intact and patent, pt. has right subclavian for hemodialysis- intact, safety measures continued, will continue with plan of care.
[2019-02-27 19:47] VITALS: BP 116/66
[2019-02-27] MEDS: Dyna-Hex 2% Top Sol 2oz TOPIC SCH (20:27)
[2019-02-27] MEDS ORDERED: Miralax 17gm pkt ORAL PRN (20:45)
[2019-02-27] MEDS: Cefepime HCl 0.5 GM in D5W 55 ML IVPB SCH (22:02)
[2019-02-28] VITALS: BP 121/69
[2019-02-28 03:59] VITALS: BP 120/65
[2019-02-28 04:57] LABS: BASOPHILS % (AUTO) 0.8 % (0.0-2.0); EOSINOPHILS % (AUTO) 3.3 % (0.0-3.0); HEMATOCRIT 33.1 % (42.0-52.0); HEMOGLOBIN 10.4 G/DL (14.2-18.0); LYMPHOCYTES % (AUTO) 19.9 % (20.0-45.0); MEAN CORPUSCULAR VOLUME 94 FL (80-99); MONOCYTES % (AUTO) 10.1 % (1.0-10.0); NEUTROPHILS % (AUTO) 65.9 % (45.0-75.0); PLATELET COUNT 128 K/UL (150-450); RED BLOOD COUNT 3.53 M/UL (4.70-6.10); RED CELL DISTRIBUTION WIDTH 17.9 % (11.6-14.8)
[2019-02-28 05:15] LABS: ALANINE AMINOTRANSFERASE 13 U/L (12-78); ALBUMIN 1.9 G/DL (3.4-5.0); ALBUMIN/GLOBULIN RATIO 0.4 (1.0-2.7); ALKALINE PHOSPHATASE 168 U/L (46-116); ANION GAP 12 mmol/L (5-15); ASPARTATE AMINO TRANSFERASE 18 U/L (15-37); BILIRUBIN,TOTAL 1.6 MG/DL (0.2-1.0); BLOOD UREA NITROGEN 89 mg/dL (7-18); CALCIUM 8.3 MG/DL (8.5-10.1); CARBON DIOXIDE 24 MMOL/L (21-32); CHLORIDE 105 MMOL/L (98-107); CREATININE 7.2 MG/DL (0.55-1.30); POTASSIUM 4.9 MMOL/L (3.5-5.1); SODIUM 141 MMOL/L (136-145)
[2019-02-28 05:16] LABS: PHOSPHORUS 6.6 MG/DL (2.5-4.9)
[2019-02-28 05:24] LABS: BILIRUBIN,DIRECT 1.2 MG/DL (0.0-0.3)
[2019-02-28] MEDS: NovoLOG Insulin Flexpen SUBQ SCH ×4 (05:37→20:45)
[2019-02-28] MEDS: Heparin 5000 units/ml inj SUBQ SCH ×3 (05:38→21:41)
--- NOTE | 2019-02-28 07:13 | NUR ---
HAND-OFF: Report given to Israel Parra,RN- pt. remains stable and no signs of distress noted.
--- NOTE | 2019-02-28 07:14 | NUR ---
NURSE NOTES: Received patient from KRISTEN Pastrana. Patient eyes closed at this time. Patient moaning at this time. Patient does not respond to voice or touch. Patient visibly short of breath on venturi mask at 50% FiO2. SpO2 94%. Patient showing sinus rhythm on the manager cardiac cath at this time. Patient on Nepro at 30mL/hr at this time with 150mL residual noted at this time. Tube feeding turned off at this time. Will notify Dr Chaudhari when he rounds on the patient. Patient is anuric at this time. Patient has a right subclavian permicath for dialysis. Hemodialysis ordered for today. Will follow up with [facility] dialysis. Patient has left forearm 22 gauge peripheral IV that is patent, asymptomatic, and saline locked at this time. Patient bed in low position with bed alarm on and call light in reach at this time. Will continue to monitor. Magnesium and phosphorous lab values elevated this morning. Will ensure that Dr Lara is aware. Oral care and repositioning done at this time.
[2019-02-28 08:00] VITALS: BP 101/55
[2019-02-28] MEDS: Pantoprazole Inj IVP SCH ×2 (09:14→20:43)
[2019-02-28] MEDS: Renvela 800mg Pkt ORAL SCH ×3 (09:17→18:14)
[2019-02-28] MEDS: Midodrine 10mg tab ORAL SCH ×3 (09:17→18:14)
[2019-02-28] MEDS ORDERED: Acetaminophen 650mg/20.3ml NG PRN (09:30)
--- NOTE | 2019-02-28 10:10 | General Progress Note ---
Assessment/Plan Problem List: (1) Dysphagia ICD Codes: R13.10 - Dysphagia, unspecified SNOMED: 25481183, 073188481 (2) Pleural effusion ICD Codes: J90 - Pleural effusion, not elsewhere classified SNOMED: 23625193 (3) Hypertension ICD Codes: I10 - Essential (primary) hypertension SNOMED: 85658649 (4) Diabetes mellitus ICD Codes: E11.9 - Type 2 diabetes mellitus without complications SNOMED: 34004229 (5) ESRF (end stage renal failure) ICD Codes: N18.6 - End stage renal disease SNOMED: 04714580 (6) Anemia ICD Codes: D64.9 - Anemia, unspecified SNOMED: 326416482 Assessment/Plan: NGTF add reglan swallow eval when more alert fu pulm recs Subjective ROS Limited/Unobtainable: No Allergies: Coded Allergies: No Known Allergies (Unverified , 01/29/19) Objective Last 24 Hour Vital Signs Date Time Temp Pulse Resp B/P (MAP) Pulse Ox O2 Delivery O2 Flow Rate FiO2 02/28/19 08:00 12.0 50 02/28/19 08:00 98.2 71 20 101/55 (70) 94 02/28/19 08:00 Venturi Mask 12.0 02/28/19 04:00 12.0 50 02/28/19 03:59 98.0 72 18 120/65 (83) 99 02/28/19 03:27 71 02/28/19 00:00 12.0 50 02/28/19 00:00 98.3 71 18 121/69 (86) 98 02/28/19 00:00 68 02/27/19 20:00 12.0 50 02/27/19 20:00 Venturi Mask 14.0 02/27/19 19:47 98.1 66 20 116/66 (83) 98 02/27/19 19:25 66 02/27/19 16:00 66 02/27/19 16:00 97.9 66 22 110/68 (82) 98 02/27/19 16:00 12.0 50 02/27/19 12:00 12.0 50 02/27/19 12:00 68 02/27/19 12:00 98.2 68 22 119/64 (82) 99 Intake and Output 02/27/19 02/28/19 19:00 07:00 Intake Total 220 ml 465 ml Balance 220 ml 465 ml Free Water 100 ml 50 ml IV Total 55 ml Tube Feeding 120 ml 360 ml Laboratory Tests 02/27/19 11:45: Arterial Blood pH 7.317L, Arterial Blood Partial Pressure CO2 44.2, Arterial Blood Partial Pressure O2 88.8, Arterial Blood HCO3 22.1, Arterial Blood Oxygen Saturation 95.3, Arterial Blood Base Excess -3.9L, Shai Test Positive 02/28/19 03:40: White Blood Count 7.0, Red Blood Count 3.53L, Hemoglobin 10.4L, Hematocrit 33.1L , Mean Corpuscular Volume 94, Mean Corpuscular Hemoglobin 29.4, Mean Corpuscular Hemoglobin Concent 31.3L, Red Cell Distribution Width 17.9H, Platelet Count 128L, Mean Platelet Volume 6.8, Neutrophils (%) (Auto) 65.9, Lymphocytes (%) (Auto) 19.9L, Monocytes (%) (Auto) 10.1H, Eosinophils (%) (Auto ) 3.3H, Basophils (%) (Auto) 0.8, Sodium Level 141, Potassium Level 4.9, Chloride Level 105, Carbon Dioxide Level 24, Anion Gap 12, Blood Urea Nitrogen 89H, Creatinine 7.2H, Estimat Glomerular Filtration Rate 7.7, Glucose Level 135H , Uric Acid 8.0H, Calcium Level 8.3L, Phosphorus Level 6.6H, Magnesium Level 2.5H, Total Bilirubin 1.6H, Direct Bilirubin 1.2H, Aspartate Amino Transf (AST/ SGOT) 18, Alanine Aminotransferase (ALT/SGPT) 13, Alkaline Phosphatase 168H, C- Reactive Protein, Quantitative 10.5H, Pro-B-Type Natriuretic Peptide > 12940Q, Total Protein 7.1, Albumin 1.9L, Globulin 5.2, Albumin/Globulin Ratio 0.4L, Random Vancomycin Level 22.2 Height (Feet): 5 Height (Inches): 8.00 Weight (Pounds): 160 General Appearance: lethargic EENT: normal ENT inspection Neck: supple Cardiovascular: tachycardia Respiratory/Chest: decreased breath sounds Abdomen: soft, hypoactive bowel sounds Extremities: non-tender Alfred Chaudhari MD Feb 28, 2019 10:10
--- NOTE | 2019-02-28 10:14 | NUR ---
NURSE NOTES: Called [facility] regarding hemodialysis due today. Awaiting confirmation/call back from dialysis nurse.
[2019-02-28] MEDS ORDERED: Metoclopramide 10mg/2ml Inj IVP PRN (10:15)
--- NOTE | 2019-02-28 10:23 | Infectious Diseases Prog Note ---
Assessment/Plan Assessment/Plan 63 yo male with PMHx of ESRD on HD, DM, and HTN who was sent to the ED from his snf for SOB. Sepsis Bacteremia Blood Cx 02/21/19 - MRSA Pos 2/2 Blood Cx 02/24/19 - MRSA Blood Cx 02/24/19 Permacath - MRAS TTE 02/22/19 - No sign of vegetations Respiratory failure Likely due to PNA vs Plerual effusions CXR showed large bilateral pleural effusions No fever Leukocytosis ESRD on HD DM HTN PLAN - The Permacath is likely infected and should be removed - Continue Cefepime #7 and Vancomycin #7 - f/u repeat Cx cultures - Monitor CBC and Temps Thank you for this consult. [facility] will continue to follow the patient with you during this hospitalization. Subjective Allergies: Coded Allergies: No Known Allergies (Unverified , 01/29/19) Subjective Afebrile No Leukcytosis Persistent leukocytois Objective Vital Signs Last 24 Hour Vital Signs Date Time Temp Pulse Resp B/P (MAP) Pulse Ox O2 Delivery O2 Flow Rate FiO2 02/28/19 08:00 12.0 50 02/28/19 08:00 98.2 71 20 101/55 (70) 94 02/28/19 08:00 Venturi Mask 12.0 02/28/19 04:00 12.0 50 02/28/19 03:59 98.0 72 18 120/65 (83) 99 02/28/19 03:27 71 02/28/19 00:00 12.0 50 02/28/19 00:00 98.3 71 18 121/69 (86) 98 02/28/19 00:00 68 02/27/19 20:00 12.0 50 02/27/19 20:00 Venturi Mask 14.0 02/27/19 19:47 98.1 66 20 116/66 (83) 98 02/27/19 19:25 66 02/27/19 16:00 66 02/27/19 16:00 97.9 66 22 110/68 (82) 98 02/27/19 16:00 12.0 50 02/27/19 12:00 12.0 50 02/27/19 12:00 68 02/27/19 12:00 98.2 68 22 119/64 (82) 99 Height (Feet): 5 Height (Inches): 8.00 Weight (Pounds): 160 Objective Gen: On NRB mask 12L HEENT: NCAT, MMM, EOMI LUNGS: CTAB, No W, Right chest permacath CARDS: RRR, S1, S2 ABD: Soft, NT, ND Microbiology Date/Time Source Procedure Growth Status 02/25/19 12:00 Blood Blood Culture - Final Staphylococcus Aureus - Mrsa Complete Laboratory Tests Test 02/27/19 11:45 02/28/19 03:40 Arterial Blood pH 7.317 (7.350-7.450) Arterial Blood Partial Pressure CO2 44.2 mmHg (35.0-45.0) Arterial Blood Partial Pressure O2 88.8 mmHg (75.0-100.0) Arterial Blood HCO3 22.1 mmol/L (22.0-26.0) Arterial Blood Oxygen Saturation 95.3 % (95-100) Arterial Blood Base Excess -3.9 (-2-2) L Shai Test Positive White Blood Count 7.0 K/UL (4.8-10.8) Red Blood Count 3.53 M/UL (4.70-6.10) L Hemoglobin 10.4 G/DL (14.2-18.0) L Hematocrit 33.1 % (42.0-52.0) L Mean Corpuscular Volume 94 FL (80-99) Mean Corpuscular Hemoglobin 29.4 PG (27.0-31.0) Mean Corpuscular Hemoglobin Concent 31.3 G/DL (32.0-36.0) L Red Cell Distribution Width 17.9 % (11.6-14.8) H Platelet Count 128 K/UL (150-450) L Mean Platelet Volume 6.8 FL (6.5-10.1) Neutrophils (%) (Auto) 65.9 % (45.0-75.0) Lymphocytes (%) (Auto) 19.9 % (20.0-45.0) L Monocytes (%) (Auto) 10.1 % (1.0-10.0) H Eosinophils (%) (Auto) 3.3 % (0.0-3.0) H Basophils (%) (Auto) 0.8 % (0.0-2.0) Sodium Level 141 MMOL/L (136-145) Potassium Level 4.9 MMOL/L (3.5-5.1) Chloride Level 105 MMOL/L (98-107) Carbon Dioxide Level 24 MMOL/L (21-32) Anion Gap 12 mmol/L (5-15) Blood Urea Nitrogen 89 mg/dL (7-18) H Creatinine 7.2 MG/DL (0.55-1.30) H Estimat Glomerular Filtration Rate 7.7 mL/min (>60) Glucose Level 135 MG/DL (74-106) H Uric Acid 8.0 MG/DL (2.6-7.2) H Calcium Level 8.3 MG/DL (8.5-10.1) L Phosphorus Level 6.6 MG/DL (2.5-4.9) H Magnesium Level 2.5 MG/DL (1.8-2.4) H Total Bilirubin 1.6 MG/DL (0.2-1.0) H Direct Bilirubin 1.2 MG/DL (0.0-0.3) H Aspartate Amino Transf (AST/SGOT) 18 U/L (15-37) Alanine Aminotransferase (ALT/SGPT) 13 U/L (12-78) Alkaline Phosphatase 168 U/L (46-116) H C-Reactive Protein, Quantitative 10.5 mg/dL (0.00-0.90) H Pro-B-Type Natriuretic Peptide > 47596 pg/mL (0-125) H Total Protein 7.1 G/DL (6.4-8.2) Albumin 1.9 G/DL (3.4-5.0) L Globulin 5.2 g/dL Albumin/Globulin Ratio 0.4 (1.0-2.7) L Random Vancomycin Level 22.2 ug/mL Current Medications Medications (Trade) Dose Ordered Sig/Feli Route PRN Reason Start Time Stop Time Status Last Admin Dose Admin Acetaminophen (Tylenol) 650 mg Q4HR PRN NG Mild Pain/Temp > 100.5 02/28/19 09:30 03/30/19 09:29 02/28/19 09:56 Cefepime HCl 0.5 gm/Dextrose 55 ml @ 110 mls/hr Q24H IVPB 02/27/19 23:00 03/03/19 22:59 02/27/19 22:02 Chlorhexidine Gluconate (Kiara-Hex 2%) 1 applic DAILY@2000 TOPIC 02/27/19 20:00 03/25/19 19:59 02/27/19 20:27 Dextrose (Dextrose 50%) 25 ml Q30M PRN IV Hypoglycemia 02/27/19 13:15 03/23/19 20:44 Dextrose (Dextrose 50%) 50 ml Q30M PRN IV Hypoglycemia 02/27/19 13:15 03/23/19 20:44 Heparin Sodium (Porcine) (Heparin 5000 units/ml) 5,000 units EVERY 8 HOURS SUBQ 02/27/19 14:00 03/25/19 15:59 02/28/19 05:38 Insulin Aspart (NovoLOG) BEFORE MEALS AND HS SUBQ 02/27/19 16:30 03/23/19 20:59 02/28/19 05:37 Metoclopramide HCl (Reglan) 5 mg Q6H PRN IVP Nausea & Vomiting 2ND CHOICE 02/28/19 10:15 03/30/19 10:14 Midodrine (Pro-Amatine) 10 mg THREE TIMES A DAY ORAL 02/27/19 13:00 03/25/19 17:59 02/28/19 09:17 Ondansetron HCl (Zofran) 4 mg Q6H PRN IVP Nausea & Vomiting 02/27/19 14:45 03/23/19 20:44 Pantoprazole (Protonix) 40 mg EVERY 12 HOURS IVP 02/27/19 21:00 03/24/19 10:29 02/28/19 09:14 Polyethylene Glycol (Miralax) 17 gm DAILYPRN PRN ORAL Constipation 02/27/19 20:45 03/23/19 20:44 Promethazine HCl/ Codeine (Phenergan with Codeine) 5 ml Q4H PRN ORAL For Cough 02/27/19 13:00 03/23/19 12:59 02/27/19 15:03 Sevelamer Carbonate (Renvela) 1,600 mg THREE TIMES A DAY ORAL 02/27/19 13:00 03/27/19 18:27 02/28/19 09:17 Vancomycin HCl (Vanco rx to dose) 1 ea DAILY PRN MISC Per rx protocol 02/28/19 09:00 03/24/19 10:14 Jaime Lux MD Feb 28, 2019 10:23
--- NOTE | 2019-02-28 10:47 | Nephrology Progress Note ---
Assessment/Plan Problem List: (1) ESRF (end stage renal failure) (2) Sepsis Assessment: ? line related (3) Diabetes mellitus (4) Pleural effusion (5) Anemia (6) Bradycardia Assessment ESRD - Has right chest permacath Anemia Leukocytosis Pleural effusion Bradycardia troponin elevation cardiomyopathy . Plan Antibiotics HD 02/25 done next 02/28 2D echo 40% start midodrine Subjective ROS Limited/Unobtainable: No Constitutional: Reports: malaise, weakness Objective Objective Last 24 Hour Vital Signs Date Time Temp Pulse Resp B/P (MAP) Pulse Ox O2 Delivery O2 Flow Rate FiO2 02/28/19 08:00 72 02/28/19 08:00 12.0 50 02/28/19 08:00 98.2 71 20 101/55 (70) 94 02/28/19 08:00 Venturi Mask 12.0 02/28/19 04:00 12.0 50 02/28/19 03:59 98.0 72 18 120/65 (83) 99 02/28/19 03:27 71 02/28/19 00:00 12.0 50 02/28/19 00:00 98.3 71 18 121/69 (86) 98 02/28/19 00:00 68 02/27/19 20:00 12.0 50 02/27/19 20:00 Venturi Mask 14.0 02/27/19 19:47 98.1 66 20 116/66 (83) 98 02/27/19 19:25 66 02/27/19 16:00 66 02/27/19 16:00 97.9 66 22 110/68 (82) 98 02/27/19 16:00 12.0 50 02/27/19 12:00 12.0 50 02/27/19 12:00 68 02/27/19 12:00 98.2 68 22 119/64 (82) 99 Intake and Output 02/27/19 02/28/19 19:00 07:00 Intake Total 220 ml 465 ml Balance 220 ml 465 ml Free Water 100 ml 50 ml IV Total 55 ml Tube Feeding 120 ml 360 ml Laboratory Tests 02/27/19 11:45: Arterial Blood pH 7.317L, Arterial Blood Partial Pressure CO2 44.2, Arterial Blood Partial Pressure O2 88.8, Arterial Blood HCO3 22.1, Arterial Blood Oxygen Saturation 95.3, Arterial Blood Base Excess -3.9L, Shai Test Positive 02/28/19 03:40: White Blood Count 7.0, Red Blood Count 3.53L, Hemoglobin 10.4L, Hematocrit 33.1L , Mean Corpuscular Volume 94, Mean Corpuscular Hemoglobin 29.4, Mean Corpuscular Hemoglobin Concent 31.3L, Red Cell Distribution Width 17.9H, Platelet Count 128L, Mean Platelet Volume 6.8, Neutrophils (%) (Auto) 65.9, Lymphocytes (%) (Auto) 19.9L, Monocytes (%) (Auto) 10.1H, Eosinophils (%) (Auto ) 3.3H, Basophils (%) (Auto) 0.8, Sodium Level 141, Potassium Level 4.9, Chloride Level 105, Carbon Dioxide Level 24, Anion Gap 12, Blood Urea Nitrogen 89H, Creatinine 7.2H, Estimat Glomerular Filtration Rate 7.7, Glucose Level 135H , Uric Acid 8.0H, Calcium Level 8.3L, Phosphorus Level 6.6H, Magnesium Level 2.5H, Total Bilirubin 1.6H, Direct Bilirubin 1.2H, Aspartate Amino Transf (AST/ SGOT) 18, Alanine Aminotransferase (ALT/SGPT) 13, Alkaline Phosphatase 168H, C- Reactive Protein, Quantitative 10.5H, Pro-B-Type Natriuretic Peptide > 06344T, Total Protein 7.1, Albumin 1.9L, Globulin 5.2, Albumin/Globulin Ratio 0.4L, Random Vancomycin Level 22.2 Height (Feet): 5 Height (Inches): 8.00 Weight (Pounds): 160 General Appearance: no apparent distress, lethargic Cardiovascular: normal rate Respiratory/Chest: decreased breath sounds Abdomen: distended Magan Lara MD Feb 28, 2019 10:47
--- NOTE | 2019-02-28 11:28 | Pulmonology Progress Note ---
Assessment/Plan Problems: (1) Sepsis (2) Gram-positive bacteremia (3) Pleural effusion (4) Intractable abdominal pain (5) ESRF (end stage renal failure) (6) Diabetes mellitus (7) Hypertension (8) Cognitive impairment Assessment/Plan CT of head reviewed, it's negative for acute changes neuro consult requested mg tube for feeding started repeat blood cultures are pending WBC decreasing. BC positive for Staph aureus symptomatic treatment titrate fio2 to sat of 92% check electrolytes HD by nephrology echocardiogram sliding scale dvt prophylaxis. Subjective ROS Limited/Unobtainable: Yes Constitutional: Reports: no symptoms HEENT: Repors: no symptoms Allergies: Coded Allergies: No Known Allergies (Unverified , 01/29/19) Objective Last 24 Hour Vital Signs Date Time Temp Pulse Resp B/P (MAP) Pulse Ox O2 Delivery O2 Flow Rate FiO2 02/28/19 08:00 72 02/28/19 08:00 12.0 50 02/28/19 08:00 98.2 71 20 101/55 (70) 94 02/28/19 08:00 Venturi Mask 12.0 02/28/19 04:00 12.0 50 02/28/19 03:59 98.0 72 18 120/65 (83) 99 02/28/19 03:27 71 02/28/19 00:00 12.0 50 02/28/19 00:00 98.3 71 18 121/69 (86) 98 02/28/19 00:00 68 02/27/19 20:00 12.0 50 02/27/19 20:00 Venturi Mask 14.0 02/27/19 19:47 98.1 66 20 116/66 (83) 98 02/27/19 19:25 66 02/27/19 16:00 66 02/27/19 16:00 97.9 66 22 110/68 (82) 98 02/27/19 16:00 12.0 50 02/27/19 12:00 12.0 50 02/27/19 12:00 68 02/27/19 12:00 98.2 68 22 119/64 (82) 99 Intake and Output 02/27/19 02/28/19 19:00 07:00 Intake Total 220 ml 465 ml Balance 220 ml 465 ml Free Water 100 ml 50 ml IV Total 55 ml Tube Feeding 120 ml 360 ml General Appearance: WD/WN HEENT: normocephalic Respiratory/Chest: chest wall non-tender, lungs clear, normal breath sounds Cardiovascular: normal peripheral pulses, normal rate Abdomen: normal bowel sounds, soft, non tender, no organomegaly Genitourinary: normal external genitalia Extremities: no cyanosis, no clubbing Skin: no rash 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 grossly normal Lymphatic: no neck adenopathy Microbiology Date/Time Source Procedure Growth Status 02/25/19 12:00 Blood Blood Culture - Final Staphylococcus Aureus - Mrsa Complete Laboratory Tests 02/27/19 11:45: Arterial Blood pH 7.317L, Arterial Blood Partial Pressure CO2 44.2, Arterial Blood Partial Pressure O2 88.8, Arterial Blood HCO3 22.1, Arterial Blood Oxygen Saturation 95.3, Arterial Blood Base Excess -3.9L, Shai Test Positive 02/28/19 03:40: White Blood Count 7.0, Red Blood Count 3.53L, Hemoglobin 10.4L, Hematocrit 33.1L , Mean Corpuscular Volume 94, Mean Corpuscular Hemoglobin 29.4, Mean Corpuscular Hemoglobin Concent 31.3L, Red Cell Distribution Width 17.9H, Platelet Count 128L, Mean Platelet Volume 6.8, Neutrophils (%) (Auto) 65.9, Lymphocytes (%) (Auto) 19.9L, Monocytes (%) (Auto) 10.1H, Eosinophils (%) (Auto ) 3.3H, Basophils (%) (Auto) 0.8, Sodium Level 141, Potassium Level 4.9, Chloride Level 105, Carbon Dioxide Level 24, Anion Gap 12, Blood Urea Nitrogen 89H, Creatinine 7.2H, Estimat Glomerular Filtration Rate 7.7, Glucose Level 135H , Uric Acid 8.0H, Calcium Level 8.3L, Phosphorus Level 6.6H, Magnesium Level 2.5H, Total Bilirubin 1.6H, Direct Bilirubin 1.2H, Aspartate Amino Transf (AST/ SGOT) 18, Alanine Aminotransferase (ALT/SGPT) 13, Alkaline Phosphatase 168H, C- Reactive Protein, Quantitative 10.5H, Pro-B-Type Natriuretic Peptide > 45028Q, Total Protein 7.1, Albumin 1.9L, Globulin 5.2, Albumin/Globulin Ratio 0.4L, Random Vancomycin Level 22.2 Current Medications Medications (Trade) Dose Ordered Sig/Feli Route PRN Reason Start Time Stop Time Status Last Admin Dose Admin Acetaminophen (Tylenol) 650 mg Q4HR PRN NG Mild Pain/Temp > 100.5 02/28/19 09:30 03/30/19 09:29 02/28/19 09:56 Cefepime HCl 0.5 gm/Dextrose 55 ml @ 110 mls/hr Q24H IVPB 02/27/19 23:00 03/03/19 22:59 02/27/19 22:02 Chlorhexidine Gluconate (Kiara-Hex 2%) 1 applic DAILY@2000 TOPIC 02/27/19 20:00 03/25/19 19:59 02/27/19 20:27 Dextrose (Dextrose 50%) 25 ml Q30M PRN IV Hypoglycemia 02/27/19 13:15 03/23/19 20:44 Dextrose (Dextrose 50%) 50 ml Q30M PRN IV Hypoglycemia 02/27/19 13:15 03/23/19 20:44 Heparin Sodium (Porcine) (Heparin 5000 units/ml) 5,000 units EVERY 8 HOURS SUBQ 02/27/19 14:00 03/25/19 15:59 02/28/19 05:38 Insulin Aspart (NovoLOG) BEFORE MEALS AND HS SUBQ 02/27/19 16:30 03/23/19 20:59 02/28/19 11:16 Metoclopramide HCl (Reglan) 5 mg Q6H PRN IVP Nausea & Vomiting 2ND CHOICE 02/28/19 10:15 03/30/19 10:14 Midodrine (Pro-Amatine) 10 mg THREE TIMES A DAY ORAL 02/27/19 13:00 03/25/19 17:59 02/28/19 09:17 Ondansetron HCl (Zofran) 4 mg Q6H PRN IVP Nausea & Vomiting 02/27/19 14:45 03/23/19 20:44 Pantoprazole (Protonix) 40 mg EVERY 12 HOURS IVP 02/27/19 21:00 03/24/19 10:29 02/28/19 09:14 Polyethylene Glycol (Miralax) 17 gm DAILYPRN PRN ORAL Constipation 02/27/19 20:45 03/23/19 20:44 Promethazine HCl/ Codeine (Phenergan with Codeine) 5 ml Q4H PRN ORAL For Cough 02/27/19 13:00 03/23/19 12:59 02/27/19 15:03 Sevelamer Carbonate (Renvela) 1,600 mg THREE TIMES A DAY ORAL 02/27/19 13:00 03/27/19 18:27 02/28/19 09:17 Vancomycin HCl (Vanco rx to dose) 1 ea DAILY PRN MISC Per rx protocol 02/28/19 09:00 03/24/19 10:14 Maurizio Rose MD Feb 28, 2019 11:28
[2019-02-28 12:00] VITALS: BP 109/56
--- NOTE | 2019-02-28 12:00 | NUR ---
NURSE NOTES: Patient eyes remain closed at this time. Patient sleeping at this time. Patient does not respond to voice or touch. Patient visibly short of breath on venturi mask at 50% FiO2. SpO2 94%. Lung sounds have audible rhonchi upon expiration. Diminished in bases. Patient has secretions at the back of his throat that he is not clearing. Patient periodically deep nasal suctioned by RN and RT. Patient showing sinus rhythm on the personnel monitor at this time. Tube feeding resumed at this time. GI aware of residual this morning. Dr Chaudhari made aware. NO verbal orders received. Patient is oliguric at this time. Patient has a right subclavian permicath for dialysis. ID MD reported that this may be the source of infection. Dr Lara will be made aware when he rounds on the patient tomorrow. Will endorse to next shift. Hemodialysis ordered for today. [facility] notified this morning. No call back received. Left forearm 22 gauge peripheral IV remains patent, asymptomatic, and saline locked at this time. Patient bed in low position with bed alarm on and call light in reach at this time. Will continue to monitor. Oral care, deep nasal suction, and repositioning done at this time.
--- NOTE | 2019-02-28 12:45 | Consultation ---
DATE OF CONSULTATION: 02/26/2019 CARDIAC CONSULTATION CONSULTING PHYSICIAN: Enio Soto M.D. REFERRING PHYSICIANS: Riki Jack M.D., and Maurizio Rose M.D. REASON FOR REFERRAL: Congestive heart failure, anemia, and cardiomyopathy. HISTORY OF PRESENT ILLNESS: This is a 63-year-old gentleman, who is really not able to provide any meaningful history whatsoever. Information is obtained through the patient's with one of the hospital staff translating for me and from review of subsequent records that have been obtained from prior hospitalization at [place]. In either case, the patient's indicates the patient has had history of heart problem for many years. Over the past few months, he has had several hospitalizations for recurrent swelling. He would improve with treatment, will go home not on any higher dose of medications, and will be readmitted because of shortness of breath. Subsequently, he was told that he has renal problems, has been placed on dialysis, and was sent to a convalescent hospital. He received sometimes dialysis there, but on one occasion when he went to the hospital, he was not doing well and was having some fevers and the patient was subsequently noted to be altered mentation and was sent to the emergency room. He was hospitalized here because of the fevers. Since then, he has been quite confused. According to his , he was having lunch on Thursday, was communicating, and was able to even walk a little bit with assistance, but after he ate lunch, he became very confused and subsequent fevers, and he was not able to get dialysis. He has been altered and therefore not able to obtain any other information. Family complains of some pain, but it is nonspecific. 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 SOCIAL HISTORY: Never smoked or drank alcoholic beverages according to his . ALLERGIES: No known drug allergies according to his . REVIEW OF SYSTEMS: Although review of systems unable to obtain, according to his :GASTROINTESTINAL: He had some nausea and and was complaining of stomach pain prior to being confused and diarrhea. GENITOURINARY: He is on dialysis. PULMONARY: He does not have any significant wheezing or coughing. CONSTITUTIONAL: He had some fevers prior to admission. NEUROLOGICAL: Altered mentation as mentioned and has history of headache according to his . PHYSICAL EXAMINATION: GENERAL: Shows to be altered middle-aged gentleman, in no respiratory distress, although he is on a high-flow oxygen mask. NECK: Supple. There is some jugular venous distention. LUNGS: Bilateral crackles are noted. CARDIAC: S1 is normal. S2 is normal. Regular rate and rhythm. No heaves or thrills. There is a holosystolic regurgitant murmur is noted. ABDOMEN: Soft and nontender. EXTREMITIES: There is dependent edema in the proximal thighs where it is dependent position. NEUROLOGICAL: Altered mentation. Not really follows commands. LABORATORY AND DIAGNOSTIC DATA: His white count is 9.5, hemoglobin 9.8, and platelet count of 134,000. Blood gases, pH of 7.33, pCO2 of 48, pO2 of 77, and bicarbonate of 25, 92% saturation. Sodium 135, potassium 4.7, chloride 100, bicarbonate 24, BUN 77, creatinine 6.0, glucose of 111, phosphorus of 6.4, magnesium 2.5, bilirubin 1.7, alkaline phosphatase 178. CRP of 12. ProBNP of 28,000. Albumin of 2.2. TSH of 0.89 and free T4 of 1.3. Troponin on 02/23/2019, was 0.104 and on 02/21/2019, was 0.064. Of note, the records from the hospitals indicated the patient had cardiac catheterization done at [facility] on 07/29/2017, that had shown 20% distal left main disease, 20% mid LAD disease, 30% circumflex disease, and RCA, was thought not to be obstructive coronary artery disease and was felt to have moderate grade 2 pulmonary hypertension. He has had CT scan that showed small left hydropneumothorax previously felt to be related to thoracentesis, indeterminate mass-like focal consolidation in the lingula, partially loculated moderate right-sided pleural effusion, dependent atelectasis, and tricuspid regurgitation on prior echo, showed pulmonary artery systolic pressure in the 60s, and mildly dilated RV with normal function previously. His electrocardiogram during this hospitalization showed sinus rhythm, rate of 66, low-voltage QRS complexes mainly in the limb leads and some delay in R-wave progression, and nonspecific T-wave abnormalities. In direct comparison to the prior EKG that is available from the other hospital from 01/09/2019, he had previously had some T-wave changes that are no longer present on the EKG, T-wave changes were basically in leads V4, V5, and V6. ASSESSMENT AND PLAN: 1. Cardiomyopathy. 2. Acute on chronic systolic heart failure. 3. Pleural effusions felt to be transudative, status post thoracentesis complicated by hydropneumothorax previously. 4. Pulmonary hypertension, type 2. 5. Diabetes mellitus with complications. 6. Mild coronary artery disease with reported 20% left main distally, 20% mid LAD, 30% circumflex, and intimal irregularities in the right coronary artery being present on cardiac catheterization from July 29, 2017, according to the records from other facility. 7. End-stage renal disease, on hemodialysis. 8. Abnormal cardiac enzymes, likely demand and renal insufficiency related. 9. Altered mentation, possibly toxic metabolic encephalopathy. 10. MRSA bacteremia. Dr. Jack and Dr. Rose, this patient was seen in cardiac consultation. Venous duplex of lower extremities reportedly are negative. The patient's chest x-ray had shown pleural effusion, does appear to be somewhat chronic, and maybe possibly even loculated according to prior records. Dialysis has been initiated to be continued. The patient needs medication for heart failure and cardiomyopathy with either KENYA inhibitors or Isordil and hydralazine. Dialysis should help at least with some congestive heart failure. Consider Neurology evaluation, if other physicians also agree, for his altered mentation. He does have MRSA bacteremia from 02/21/2019. IV antibiotics have been continued per recommendations of Infectious Disease. May require further testing in light of the bacteremia if no other cause is identified as the source. Enio Soto M.D. DR: Benitez JOB#: [id number] CC:
--- NOTE | 2019-02-28 13:01 | Consultation ---
DATE OF CONSULTATION: 02/26/2019 GASTROENTEROLOGY CONSULTATION CONSULTING PHYSICIAN: Guzman Camejo M.D. CHIEF COMPLAINT: I was asked to see this patient by Dr. Maurizio Rose for evaluation of poor oral intake. HISTORY OF PRESENT ILLNESS: The patient is a debilitated 63-year-old man who was brought to the hospital and he has suffered from congestive heart failure. He is confused and minimally interactive. There was a relative at the bedside who gave some information. There are, however, records from the outside hospital showing that the patient had multiple prior admissions and has a complex medical history including diabetes, hypertension, kidney disease, congestive heart failure with ejection fraction of 15% complicating further with prior pleural effusions. The patient is now on a face mask and oxygen and only moans during the examination. The patient has been felt to be at risk for oral intake, and therefore he has been kept NPO. The remainder of medical information can be obtained from the chart. PAST MEDICAL HISTORY: History of diabetes, diabetic retinopathy, diabetic nephropathy, hypertension, chronic kidney disease, lower extremity edema, congestive heart failure with ejection fraction of 15 to 20%, history of bilateral pleural effusions, status post thoracentesis, and the patient is on hemodialysis 3 times a week. FAMILY HISTORY: Noncontributory. SOCIAL HISTORY: The patient does not smoke or drink alcohol. MEDICATIONS: See the chart list for details. REVIEW OF SYSTEMS: Otherwise negative. ALLERGIES: None. PHYSICAL EXAMINATION: GENERAL: A debilitated man, seen in his room with family at bedside. HEENT: Normocephalic and atraumatic. Sclerae are anicteric. NECK: Supple. The patient has a face mask on. CHEST: Reveals bilateral coarse breath sounds. CARDIOVASCULAR: Revealed a regular rate. ABDOMEN: Soft. Mildly obese with good bowel sounds and somewhat tympanitic percussion note. EXTREMITIES: Revealed no edema. LABORATORY DATA: Laboratory data were noted. ASSESSMENT: This patient presents with congestive heart failure and altered mental status. He is clearly unresponsive and unable to eat safely by mouth both due to his altered mental status as well as his respiratory status. I suspect that he will take some days to recover, and therefore I have ordered a nurse to place a nasogastric tube to allow both the medication administration and also the tube feeding until the patient's status is more clear. In the meantime, the patient was seen by multiple consultants with respect to his cardiopulmonary status, and if he improves and is more optimized, then perhaps a swallow study can be checked. RECOMMENDATIONS: Per above discussion and per orders written in the chart. Thank you for asking me to participate in the care of this patient. Guzman Camejo M.D. DR: SHAKILA JOB#: [id number] CC: MANGO
[2019-02-28 16:00] VITALS: BP 116/62
--- NOTE | 2019-02-28 16:00 | NUR ---
NURSE NOTES: Patient eyes remain closed at this time. Patient sleeping at this time. Patient does not respond to voice or touch. Patient visibly short of breath on venturi mask at 50% FiO2. SpO2 94%. Lung sounds continue to have audible rhonchi upon expiration. Diminished in bases. Patient contniues to have secretions at the back of his throat that he is not clearing. Patient deep nasal suctioned at this time. Bloody sputum noted. Will continue to monitor. Patient showing sinus rhythm on the ekg monitor tech at this time. Tube feeding running. No residual noted. Patient remains oliguric at this time. Right subclavian permicath for dialysis remains patent and asymptomatic. Hemodialysis ordered for today. VIP notified this morning. No call back received yet. Will follow up. Left forearm 22 gauge peripheral IV remains patent, asymptomatic, and saline locked at this time. Patient bed in low position with bed alarm on and call light in reach at this time. Will continue to monitor. Oral care, bed bath, and repositioning done at this time.
--- NOTE | 2019-02-28 19:30 | NUR ---
HAND-OFF: Report given to KRISTEN Ang. Discovered DTI on bilateral heel and medial left foot and big tow of right foot. Pictures taken. Endorsed to document measurements and assessment of the wounds. [facility] reported that patient will not be able to have dialysis today. Endorsed to follow up.
--- NOTE | 2019-02-28 19:45 | NUR ---
NURSE NOTES: Received report from Aida Sorensen RN. Pt is currently Sr at 71BPM, BP 109/71, RR 24 on ventri mask @50% and 12 LPM satting at 96%, T 97.9. No signs or symptoms of pain or distress noted at this time, FLACC 0. NGT patent, flushed with 30ml water, asymptomatic, and intact. Will continue close monitoring and plan of care.
[2019-02-28 20:00] VITALS: BP 109/71
[2019-02-28] MEDS: Dyna-Hex 2% Top Sol 2oz TOPIC SCH (20:43)
[2019-02-28] MEDS: Cefepime HCl 0.5 GM in D5W 55 ML IVPB SCH (23:18)
[2019-03-01] VITALS: BP 109/59
[2019-03-01 04:00] VITALS: BP 114/57
[2019-03-01] MEDS: Heparin 5000 units/ml inj SUBQ SCH ×3 (06:00→21:37)
[2019-03-01] MEDS: NovoLOG Insulin Flexpen SUBQ SCH ×4 (06:55→20:28)
--- NOTE | 2019-03-01 07:40 | NUR ---
NURSE NOTES: Received patient from KRISTEN Ang. Patient observed laying in bed, with his eyes closed, does not respond to voice or touch, can be occasionally heard moaning. Patient visibly short of breath on venturi mask at 50% FiO2 12L. SpO2 89%. Patient showing sinus rhythm on the rv service technician at this time. Patient on Nepro running at 30mL/hr via NGT in the left nares. Patient is anuric. Patient has a right subclavian permicath for dialysis. Hemodialysis scheduled for today. Patient has Left FA #22g peripheral IV that is intact, patent, and asymptomatic. Patient bed in lowest position with bed alarm on and call light in reach. Will resume plan of care.
--- NOTE | 2019-03-01 07:43 | General Progress Note ---
Assessment/Plan Problem List: (1) Dysphagia ICD Codes: R13.10 - Dysphagia, unspecified SNOMED: 71260596, 383446444 (2) Pleural effusion ICD Codes: J90 - Pleural effusion, not elsewhere classified SNOMED: 31136389 (3) Hypertension ICD Codes: I10 - Essential (primary) hypertension SNOMED: 83289397 (4) Diabetes mellitus ICD Codes: E11.9 - Type 2 diabetes mellitus without complications SNOMED: 09478146 (5) ESRF (end stage renal failure) ICD Codes: N18.6 - End stage renal disease SNOMED: 80073728 (6) Anemia ICD Codes: D64.9 - Anemia, unspecified SNOMED: 273335911 Assessment/Plan: NGTF on reglan swallow eval when more alert fu pulm recs Subjective ROS Limited/Unobtainable: No Allergies: Coded Allergies: No Known Allergies (Unverified , 01/29/19) Objective Last 24 Hour Vital Signs Date Time Temp Pulse Resp B/P (MAP) Pulse Ox O2 Delivery O2 Flow Rate FiO2 03/01/19 04:00 12.0 50 03/01/19 04:00 98.4 71 25 114/57 (76) 96 03/01/19 04:00 70 03/01/19 00:00 98.6 72 25 109/59 (76) 96 03/01/19 00:00 71 02/28/19 21:00 Venturi Mask 12.0 02/28/19 20:00 71 02/28/19 20:00 12.0 50 02/28/19 20:00 97.9 72 24 109/71 (84) 96 02/28/19 16:00 98.1 73 20 116/62 (80) 93 02/28/19 16:00 12.0 50 02/28/19 16:00 72 02/28/19 12:00 76 02/28/19 12:00 98.2 74 20 109/56 (73) 93 02/28/19 12:00 12.0 50 02/28/19 08:00 72 02/28/19 08:00 12.0 50 02/28/19 08:00 98.2 71 20 101/55 (70) 94 02/28/19 08:00 Venturi Mask 12.0 Intake and Output 02/28/19 03/01/19 19:00 07:00 Intake Total 210 ml 535 ml Output Total 600 ml Balance 210 ml -65 ml Free Water 120 ml IV Total 55 ml Tube Feeding 210 ml 360 ml Output Urine Total 600 ml # Voids 1 # Bowel Movements 1 Laboratory Tests 03/01/19 05:00: Random Vancomycin Level 21.6 Height (Feet): 5 Height (Inches): 8.00 Weight (Pounds): 161 General Appearance: lethargic EENT: normal ENT inspection Neck: supple Cardiovascular: tachycardia Respiratory/Chest: decreased breath sounds Abdomen: normal bowel sounds, non tender, soft Extremities: non-tender Alfred Chaudhari MD Mar 01, 2019 07:43
--- NOTE | 2019-03-01 07:47 | NUR ---
HAND-OFF: Report given to Yadi Blake RN. Pt in stable condition
[2019-03-01 08:00] VITALS: BP 123/62
[2019-03-01] MEDS: Pantoprazole Inj IVP SCH ×2 (08:55→20:25)
[2019-03-01] MEDS: Midodrine 10mg tab ORAL SCH ×3 (08:55→18:25)
[2019-03-01] MEDS: Renvela 800mg Pkt ORAL SCH ×3 (08:55→18:25)
--- NOTE | 2019-03-01 09:07 | NUR ---
NURSE NOTES: Received call from Microbiology informing senior copywriter of positive blood culture in 3 bottles- gram + cocci in clusters. Left message informing Dr. Lux.
--- NOTE | 2019-03-01 09:13 | NUR ---
NURSE NOTES: Dr Lux returned writers call. will order repeat blood cultures when he comes to assess pt in a few hours.
--- NOTE | 2019-03-01 09:43 | NUR ---
CASE MANAGEMENT:REVIEW 03/01/2019 SI: SEPSIS. BACTEREMIA. ESRD T 98.1 HR 72 RR 18 B/P 123/62 SATS 92% ON 14L/VENTURI MASK FIO2 55% IS: IV VANCOMYCIN QD IV CEFEPIME Q24 MIDODRINE PO TID MEGACE PO BID HEPARIN SQ Q8HRS IV PROTONIX Q12 : ANGIE DCP: FROM [facility]
--- NOTE | 2019-03-01 10:17 | Infectious Diseases Prog Note ---
Assessment/Plan Assessment/Plan 63 yo male with PMHx of ESRD on HD, DM, and HTN who was sent to the ED from his snf for SOB. Sepsis Bacteremia Blood Cx 02/21/19 - MRSA Pos 2/2 Blood Cx 02/24/19 - MRSA Blood Cx 02/24/19 Permacath - MRSA TTE 02/22/19 - No sign of vegetations Blood Cx 02/28/19 - MRSA Respiratory failure Likely due to PNA vs Plerual effusions CXR showed large bilateral pleural effusions No fever Leukocytosis ESRD on HD DM HTN PLAN - The Permacath is likely infected and should be removed - Continue Vancomycin #8 - 03/01/19 SP Cefepime #8 - f/u repeat Cx cultures - Monitor CBC and Temps Thank you for this consult. [facility] will continue to follow the patient with you during this hospitalization. Subjective Allergies: Coded Allergies: No Known Allergies (Unverified , 01/29/19) Subjective Afebrile No Leukcytosis Persistent bacteremia Objective Vital Signs Last 24 Hour Vital Signs Date Time Temp Pulse Resp B/P (MAP) Pulse Ox O2 Delivery O2 Flow Rate FiO2 03/01/19 09:32 92 Venturi Mask 14.0 55 03/01/19 08:00 98.1 72 18 123/62 (82) 90 03/01/19 04:00 12.0 50 03/01/19 04:00 98.4 71 25 114/57 (76) 96 03/01/19 04:00 70 03/01/19 00:00 98.6 72 25 109/59 (76) 96 03/01/19 00:00 71 02/28/19 21:00 Venturi Mask 12.0 02/28/19 20:00 71 02/28/19 20:00 12.0 50 02/28/19 20:00 97.9 72 24 109/71 (84) 96 02/28/19 16:00 98.1 73 20 116/62 (80) 93 02/28/19 16:00 12.0 50 02/28/19 16:00 72 02/28/19 12:00 76 02/28/19 12:00 98.2 74 20 109/56 (73) 93 02/28/19 12:00 12.0 50 Height (Feet): 5 Height (Inches): 8.00 Weight (Pounds): 161 Objective Gen: On NRB mask 50% O2 HEENT: NCAT, MMM, EOMI LUNGS: CTAB, No W, Right chest permacath CARDS: RRR, S1, S2 ABD: Soft, NT, ND Microbiology Date/Time Source Procedure Growth Status 02/28/19 10:50 Blood Blood Culture - Preliminary Resulted 02/28/19 10:40 Blood Blood Culture - Preliminary Resulted Laboratory Tests Test 03/01/19 05:00 Random Vancomycin Level 21.6 ug/mL Current Medications Medications (Trade) Dose Ordered Sig/Feli Route PRN Reason Start Time Stop Time Status Last Admin Dose Admin Acetaminophen (Tylenol) 650 mg Q4HR PRN NG Mild Pain/Temp > 100.5 02/28/19 09:30 03/30/19 09:29 02/28/19 09:56 Cefepime HCl 0.5 gm/Dextrose 55 ml @ 110 mls/hr Q24H IVPB 02/27/19 23:00 03/03/19 22:59 02/28/19 23:18 Chlorhexidine Gluconate (Kiara-Hex 2%) 1 applic DAILY@2000 TOPIC 02/27/19 20:00 03/25/19 19:59 02/28/19 20:43 Dextrose (Dextrose 50%) 25 ml Q30M PRN IV Hypoglycemia 02/27/19 13:15 03/23/19 20:44 Dextrose (Dextrose 50%) 50 ml Q30M PRN IV Hypoglycemia 02/27/19 13:15 03/23/19 20:44 Heparin Sodium (Porcine) (Heparin 5000 units/ml) 5,000 units EVERY 8 HOURS SUBQ 02/27/19 14:00 03/25/19 15:59 02/28/19 05:38 Insulin Aspart (NovoLOG) BEFORE MEALS AND HS SUBQ 02/27/19 16:30 03/23/19 20:59 03/01/19 06:55 Metoclopramide HCl (Reglan) 5 mg Q6H PRN IVP Nausea & Vomiting 2ND CHOICE 02/28/19 10:15 03/30/19 10:14 Midodrine (Pro-Amatine) 10 mg THREE TIMES A DAY ORAL 02/27/19 13:00 03/25/19 17:59 03/01/19 08:55 Ondansetron HCl (Zofran) 4 mg Q6H PRN IVP Nausea & Vomiting 02/27/19 14:45 03/23/19 20:44 Pantoprazole (Protonix) 40 mg EVERY 12 HOURS IVP 02/27/19 21:00 03/24/19 10:29 03/01/19 08:55 Polyethylene Glycol (Miralax) 17 gm DAILYPRN PRN ORAL Constipation 02/27/19 20:45 03/23/19 20:44 Promethazine HCl/ Codeine (Phenergan with Codeine) 5 ml Q4H PRN ORAL For Cough 02/27/19 13:00 03/23/19 12:59 02/27/19 15:03 Sevelamer Carbonate (Renvela) 1,600 mg THREE TIMES A DAY ORAL 02/27/19 13:00 03/27/19 18:27 03/01/19 08:55 Vancomycin HCl (Vanco rx to dose) 1 ea DAILY PRN MISC Per rx protocol 02/28/19 09:00 03/24/19 10:14 Jaime Lux MD Mar 01, 2019 10:17
--- NOTE | 2019-03-01 10:41 | Pulmonology Progress Note ---
Assessment/Plan Problems: (1) Infection, dialysis vascular access (2) Sepsis (3) Gram-positive bacteremia (4) Pleural effusion (5) Intractable abdominal pain (6) ESRF (end stage renal failure) (7) Diabetes mellitus (8) Hypertension (9) Cognitive impairment Assessment/Plan all reviewed, Persistent bacteremia caused by HD access Radiology will remove the line today after HD (hopefully) CT of head reviewed, it's negative for acute changes neuro consult requested mg tube for feeding started repeat blood cultures are pending WBC decreasing. BC positive for Staph aureus again symptomatic treatment titrate fio2 to sat of 92% check electrolytes HD by nephrology echocardiogram sliding scale dvt prophylaxis. Subjective ROS Limited/Unobtainable: No Constitutional: Reports: no symptoms HEENT: Repors: no symptoms Respiratory: Reports: no symptoms Allergies: Coded Allergies: No Known Allergies (Unverified , 01/29/19) Objective Last 24 Hour Vital Signs Date Time Temp Pulse Resp B/P (MAP) Pulse Ox O2 Delivery O2 Flow Rate FiO2 03/01/19 09:32 92 Venturi Mask 14.0 55 03/01/19 08:00 98.1 72 18 123/62 (82) 90 03/01/19 04:00 12.0 50 03/01/19 04:00 98.4 71 25 114/57 (76) 96 03/01/19 04:00 70 03/01/19 00:00 98.6 72 25 109/59 (76) 96 03/01/19 00:00 71 02/28/19 21:00 Venturi Mask 12.0 02/28/19 20:00 71 02/28/19 20:00 12.0 50 02/28/19 20:00 97.9 72 24 109/71 (84) 96 02/28/19 16:00 98.1 73 20 116/62 (80) 93 02/28/19 16:00 12.0 50 02/28/19 16:00 72 02/28/19 12:00 76 02/28/19 12:00 98.2 74 20 109/56 (73) 93 02/28/19 12:00 12.0 50 Intake and Output 02/28/19 03/01/19 19:00 07:00 Intake Total 210 ml 535 ml Output Total 600 ml Balance 210 ml -65 ml Free Water 120 ml IV Total 55 ml Tube Feeding 210 ml 360 ml Output Urine Total 600 ml # Voids 1 # Bowel Movements 1 General Appearance: WD/WN, no acute distress HEENT: normocephalic Respiratory/Chest: chest wall non-tender, accessory muscle use, crackles/rales Cardiovascular: normal peripheral pulses, normal rate Abdomen: normal bowel sounds, soft, non tender Genitourinary: normal external genitalia Neurologic/Psychiatric: no motor/sensory deficits Lymphatic: no neck adenopathy, no groin adenopathy Microbiology Date/Time Source Procedure Growth Status 02/28/19 10:50 Blood Blood Culture - Preliminary Resulted 02/28/19 10:40 Blood Blood Culture - Preliminary Resulted Laboratory Tests 03/01/19 05:00: Random Vancomycin Level 21.6 Current Medications Medications (Trade) Dose Ordered Sig/Feli Route PRN Reason Start Time Stop Time Status Last Admin Dose Admin Acetaminophen (Tylenol) 650 mg Q4HR PRN NG Mild Pain/Temp > 100.5 02/28/19 09:30 03/30/19 09:29 02/28/19 09:56 Chlorhexidine Gluconate (Kiara-Hex 2%) 1 applic DAILY@1999 TOPIC 02/27/19 20:00 03/25/19 19:59 02/28/19 20:43 Dextrose (Dextrose 50%) 25 ml Q30M PRN IV Hypoglycemia 02/27/19 13:15 03/23/19 20:44 Dextrose (Dextrose 50%) 50 ml Q30M PRN IV Hypoglycemia 02/27/19 13:15 03/23/19 20:44 Heparin Sodium (Porcine) (Heparin 5000 units/ml) 5,000 units EVERY 8 HOURS SUBQ 02/27/19 14:00 03/25/19 15:59 02/28/19 05:38 Insulin Aspart (NovoLOG) BEFORE MEALS AND HS SUBQ 02/27/19 16:30 03/23/19 20:59 03/01/19 06:55 Metoclopramide HCl (Reglan) 5 mg Q6H PRN IVP Nausea & Vomiting 2ND CHOICE 02/28/19 10:15 03/30/19 10:14 Midodrine (Pro-Amatine) 10 mg THREE TIMES A DAY ORAL 02/27/19 13:00 03/25/19 17:59 03/01/19 08:55 Ondansetron HCl (Zofran) 4 mg Q6H PRN IVP Nausea & Vomiting 02/27/19 14:45 03/23/19 20:44 Pantoprazole (Protonix) 40 mg EVERY 12 HOURS IVP 02/27/19 21:00 03/24/19 10:29 03/01/19 08:55 Polyethylene Glycol (Miralax) 17 gm DAILYPRN PRN ORAL Constipation 02/27/19 20:45 03/23/19 20:44 Promethazine HCl/ Codeine (Phenergan with Codeine) 5 ml Q4H PRN ORAL For Cough 02/27/19 13:00 03/23/19 12:59 02/27/19 15:03 Sevelamer Carbonate (Renvela) 1,600 mg THREE TIMES A DAY ORAL 02/27/19 13:00 03/27/19 18:27 03/01/19 08:55 Vancomycin HCl (Vanco rx to dose) 1 ea DAILY PRN MISC Per rx protocol 02/28/19 09:00 03/24/19 10:14 Maurizio Rose MD Mar 01, 2019 10:41
--- NOTE | 2019-03-01 11:57 | Nephrology Progress Note ---
Assessment/Plan Problem List: (1) ESRF (end stage renal failure) (2) Sepsis Assessment: ? line related (3) Diabetes mellitus (4) Pleural effusion (5) Anemia (6) Bradycardia Assessment ESRD - Has right chest permacath Anemia Leukocytosis Pleural effusion Bradycardia troponin elevation cardiomyopathy . Plan Antibiotics HD 02/25 done next 02/28 ( was deferred by dialysis company to 03/01) remove infected cath afterdialysis 2D echo 40% start midodrine Subjective ROS Limited/Unobtainable: No Constitutional: Reports: malaise, weakness Objective Objective Last 24 Hour Vital Signs Date Time Temp Pulse Resp B/P (MAP) Pulse Ox O2 Delivery O2 Flow Rate FiO2 03/01/19 09:32 92 Venturi Mask 14.0 55 03/01/19 09:00 Venturi Mask 12.0 03/01/19 08:00 98.1 72 18 123/62 (82) 90 03/01/19 08:00 14.0 55 03/01/19 04:00 12.0 50 03/01/19 04:00 98.4 71 25 114/57 (76) 96 03/01/19 04:00 70 03/01/19 00:00 98.6 72 25 109/59 (76) 96 03/01/19 00:00 71 02/28/19 21:00 Venturi Mask 12.0 02/28/19 20:00 71 02/28/19 20:00 12.0 50 02/28/19 20:00 97.9 72 24 109/71 (84) 96 02/28/19 16:00 98.1 73 20 116/62 (80) 93 02/28/19 16:00 12.0 50 02/28/19 16:00 72 02/28/19 12:00 76 02/28/19 12:00 98.2 74 20 109/56 (73) 93 02/28/19 12:00 12.0 50 Intake and Output 02/28/19 03/01/19 19:00 07:00 Intake Total 210 ml 535 ml Output Total 600 ml Balance 210 ml -65 ml Free Water 120 ml IV Total 55 ml Tube Feeding 210 ml 360 ml Output Urine Total 600 ml # Voids 1 # Bowel Movements 1 Laboratory Tests 03/01/19 05:00: Random Vancomycin Level 21.6 1/7/20 11:45: Prothrombin Time [Pending], Prothromb Time International Ratio [Pending], Activated Partial Thromboplast Time [Pending] Height (Feet): 5 Height (Inches): 8.00 Weight (Pounds): 161 Cardiovascular: normal rate Respiratory/Chest: decreased breath sounds Abdomen: absent bowel sounds Magan Lara MD Mar 01, 2019 11:57
[2019-03-01 12:00] VITALS: BP 116/60
[2019-03-01 12:08] LABS: INR 1.2 (0.9-1.1)
--- NOTE | 2019-03-01 12:15 | NUR ---
NURSE NOTES: RADHA field service supervisor at bedside connecting pt to dialysis machine at this time. Pt orally suctioned and repositioned at this time. No distress noted
--- NOTE | 2019-03-01 13:07 | Cardiology Progress Note ---
Assessment/Plan Assessment/Plan 1. Cardiomyopathy. 2. Acute on chronic systolic heart failure. 3. Pleural effusions felt to be transudative, status post thoracentesis complicated by hydropneumothorax previously. 4. Pulmonary hypertension, type 2. 5. Diabetes mellitus with complications. 6. Mild coronary artery disease with reported 20% left main distally, 20% mid LAD, 30% circumflex, and intimal irregularities in the right coronary artery being present on cardiac catheterization from July 29, 2017, according to the records from other facility. 7. End-stage renal disease, on hemodialysis. 8. Abnormal cardiac enzymes, likely demand and renal insufficiency related. 9. Altered mentation, possibly toxic metabolic encephalopathy. 10. MRSA bacteremia. remains altered mentation ct of head report noted per dr dickey note await neuro input cath 07/2018 [facility]: lm 20% distally , lad 20% mid , lcx 30% , rca MLIs wbc is stable as on 02/28 no new labs is not febrile not appear is worse chf still is gettign dialysis is still not tachycardic nor bradycardic bp seems fine hemodynamically stable seven in future once neuro ortiz stable / improved await neuro input may need further neuro imaging Subjective ROS Limited/Unobtainable: Yes Subjective awake but not responsive Objective Last 24 Hour Vital Signs Date Time Temp Pulse Resp B/P (MAP) Pulse Ox O2 Delivery O2 Flow Rate FiO2 03/01/19 12:00 97.9 70 20 116/60 (78) 92 03/01/19 12:00 14.0 55 03/01/19 11:49 73 03/01/19 09:32 92 Venturi Mask 14.0 55 03/01/19 09:00 Venturi Mask 12.0 03/01/19 08:00 98.1 72 18 123/62 (82) 90 03/01/19 08:00 14.0 55 03/01/19 08:00 74 03/01/19 04:00 12.0 50 03/01/19 04:00 98.4 71 25 114/57 (76) 96 03/01/19 04:00 70 03/01/19 00:00 98.6 72 25 109/59 (76) 96 03/01/19 00:00 71 02/28/19 21:00 Venturi Mask 12.0 02/28/19 20:00 71 02/28/19 20:00 12.0 50 02/28/19 20:00 97.9 72 24 109/71 (84) 96 02/28/19 16:00 98.1 73 20 116/62 (80) 93 02/28/19 16:00 12.0 50 02/28/19 16:00 72 General Appearance: no apparent distress, patient on isolation Cardiovascular: normal rate Respiratory/Chest: rhonchi - bilaterally Abdomen: normal bowel sounds, non tender, soft Extremities: no swelling Intake and Output 02/28/19 03/01/19 19:00 07:00 Intake Total 210 ml 535 ml Output Total 600 ml Balance 210 ml -65 ml Free Water 120 ml IV Total 55 ml Tube Feeding 210 ml 360 ml Output Urine Total 600 ml # Voids 1 # Bowel Movements 1 Laboratory Tests Test 03/01/19 05:00 03/01/19 11:45 Random Vancomycin Level 21.6 ug/mL Prothrombin Time 12.7 SEC (9.30-11.50) H Prothromb Time International Ratio 1.2 (0.9-1.1) H Activated Partial Thromboplast Time 37 SEC (23-33) H Microbiology Date/Time Source Procedure Growth Status 02/28/19 10:50 Blood Blood Culture - Preliminary Resulted 02/28/19 10:40 Blood Blood Culture - Preliminary Resulted Enio Soto MD Mar 01, 2019 13:07
--- NOTE | 2019-03-01 15:30 | NUR ---
NURSE NOTES: Dialysis completed at this time. 2L out. Pt tolerated dialysis well.
[2019-03-01 16:00] VITALS: BP 130/58
--- NOTE | 2019-03-01 16:09 | NUR ---
NURSE NOTES: Heparin being administered late d/t pt getting dialysis and senior grant writer being off unit with another pt for a procedure.
--- NOTE | 2019-03-01 19:22 | NUR ---
HAND-OFF: Report given to KRISTEN Ang.
--- NOTE | 2019-03-01 19:30 | Progress Note ---
DATE: 02/28/2019 SUBJECTIVE: The patient's is at bedside no communication with the patient's at all and is not able to provide any meaningful history. PHYSICAL EXAMINATION: GENERAL: Shows not to be in any kind of respiratory distress. He is minimally responsive at all. NECK: Supple. CARDIAC: Regular rate and rhythm. LUNGS: Anteriorly appeared to be clear. ABDOMEN: Soft, nontender. EXTREMITIES: Does not appear to be in significant swelling. ASSESSMENT AND PLAN: 1. Cardiomyopathy. 2. Acute on chronic systolic heart failure. 3. Pleural effusion felt to be transudative status post thoracentesis complicated by hydropneumothorax previously at different hospitals. 4. Pulmonary hypertension history type 2. 5. Diabetes mellitus. 6. Mild coronary artery disease on prior cardiac catheterization. 7. End-stage renal disease, on hemodialysis. 8. Abnormal cardiac enzymes likely secondary to demand and renal insufficiency. 9. Altered mentation, toxic metabolic encephalopathy versus RN OUTPATIENT SURGERY abnormality. The patient remains still altered. The CT scan of the head was performed as noted above. White blood count appears to be stable. Hemodynamically he seems to be in no worse shortness of breath or congestive heart failure than he was before. He is not febrile. He is not tachycardic or bradycardic. His blood pressure appears to be fine. Dr. Rose is indicating that the patient is pending a neurological evaluation that he has requested for consultation, await input from the neurologist Telemetry appears to be okay. Transesophageal echocardiogram may be considered to be performed but I am hesitant to do so while he is altered in his mentation await for stabilization of neurologic status before attempting to do that procedure. Enio Soto M.D. DR: Charlene JOB#: [id number] CC:
--- NOTE | 2019-03-01 19:45 | NUR ---
NURSE NOTES: Received report from Yadi Blake RN. Pt in stable condition; will continue plan of care and close monitoring.
[2019-03-01] MEDS: Dyna-Hex 2% Top Sol 2oz TOPIC SCH (19:51)
[2019-03-01 20:00] VITALS: BP 130/68
[2019-03-01] MEDS ORDERED: Vancomycin 1gm in D5W 275ml IVPB SCH (22:00)
[2019-03-02] VITALS: BP 119/57
[2019-03-02 04:00] VITALS: BP 126/70
[2019-03-02 04:35] LABS: BASOPHILS % (AUTO) 0.5 % (0.0-2.0); EOSINOPHILS % (AUTO) 1.1 % (0.0-3.0); HEMATOCRIT 32.7 % (42.0-52.0); HEMOGLOBIN 10.3 G/DL (14.2-18.0); LYMPHOCYTES % (AUTO) 12.3 % (20.0-45.0); MEAN CORPUSCULAR VOLUME 94 FL (80-99); MONOCYTES % (AUTO) 7.8 % (1.0-10.0); NEUTROPHILS % (AUTO) 78.3 % (45.0-75.0); PLATELET COUNT 188 K/UL (150-450); RED BLOOD COUNT 3.47 M/UL (4.70-6.10); RED CELL DISTRIBUTION WIDTH 17.5 % (11.6-14.8); WHITE BLOOD COUNT 11.8 K/UL (4.8-10.8)
[2019-03-02 05:01] LABS: ALANINE AMINOTRANSFERASE 13 U/L (12-78); ALBUMIN 1.9 G/DL (3.4-5.0); ALBUMIN/GLOBULIN RATIO 0.3 (1.0-2.7); ALKALINE PHOSPHATASE 175 U/L (46-116); ANION GAP 9 mmol/L (5-15); ASPARTATE AMINO TRANSFERASE 17 U/L (15-37); BILIRUBIN,DIRECT 0.8 MG/DL (0.0-0.3); BILIRUBIN,TOTAL 1.3 MG/DL (0.2-1.0); BLOOD UREA NITROGEN 58 mg/dL (7-18); CARBON DIOXIDE 29 MMOL/L (21-32); CHLORIDE 100 MMOL/L (98-107); CREATININE 5.6 MG/DL (0.55-1.30); PHOSPHORUS 4.2 MG/DL (2.5-4.9); SODIUM 138 MMOL/L (136-145)
[2019-03-02] MEDS: Heparin 5000 units/ml inj SUBQ SCH ×3 (06:36→21:53)
[2019-03-02] MEDS: NovoLOG Insulin Flexpen SUBQ SCH ×4 (06:37→21:04)
--- NOTE | 2019-03-02 07:48 | NUR ---
HAND-OFF: Report given to Bree Robertson RN. Pt in stable condition.
--- NOTE | 2019-03-02 07:49 | NUR ---
NURSE NOTES: Received report from KRISTEN Ang. Observed patient in bed, nonverbal. On Venturi Mask FiO2 50%, 12L. Saturating 97%. Left nares NGT intact and patent, TF infusing at prescribed rate. HOB elevated. Right chest permacath noted with intact dressing. Left FA 22g IV intact and patent. Safety precautions in place, bed locked, alarmed, and in lowest position, side rails up x2, and call light left within reach. Will continue plan of care and will continue to monitor patient.
[2019-03-02 08:00] VITALS: BP 130/66
[2019-03-02] MEDS: Midodrine 10mg tab ORAL SCH ×3 (08:38→17:48)
[2019-03-02] MEDS: Pantoprazole Inj IVP SCH (08:39)
[2019-03-02] MEDS: Renvela 800mg Pkt ORAL SCH ×3 (08:40→17:48)
--- NOTE | 2019-03-02 08:52 | NUR ---
NURSE NOTES:WOUND CARE NOTES:Pt noted to have developed partial thickness wound cleft of L ear secondary to use of oxygen. Base of wound is moist and viable(L)0.7cm x (W)0.5cm. Non-blanching erythema noted to cleft of R ear. Maroon discoloration without induration noted to sacrum. Non-blanching erythema without induration or fluctuance noted to tip of R 1st metatarsal. Non-blanching erythema without induration or fluctuance noted to L hallux(L)1.5cm x (W)2cm. R and L heels are both boggy with non-blanching erythema. Xerosis skin noted to both lower ext. Tx.plan: Apply Moisture Barrier Paste to sacrum. Cover with Optifoam drsg. Change every 3 days and prn. Apply Betadine to L ear. Cover as needed with Optifoam drsg. Apply Cavilon Skin Barrier to L Hallux. Cover with Optifoam drsg. Change every 7 days and prn. Apply Cavilon Skin Barrier to Tip of R 1st metatarsal. Cover with Optifoam drsg. Change every 7 days and prn. Apply Cavilon Skin Barrier to Both Heels. Cover each heel with Optifoam drsg. Change every 7 days and prn. APM/JOE Mattress overlay. Reposition at least every 2hours or as tolerated. Off-load heels with pillow.
--- NOTE | 2019-03-02 09:44 | General Progress Note ---
Assessment/Plan Problem List: (1) Dysphagia ICD Codes: R13.10 - Dysphagia, unspecified SNOMED: 21089299, 510849243 (2) Pleural effusion ICD Codes: J90 - Pleural effusion, not elsewhere classified SNOMED: 31338067 (3) Hypertension ICD Codes: I10 - Essential (primary) hypertension SNOMED: 84469910 (4) Diabetes mellitus ICD Codes: E11.9 - Type 2 diabetes mellitus without complications SNOMED: 63089318 (5) ESRF (end stage renal failure) ICD Codes: N18.6 - End stage renal disease SNOMED: 98111788 (6) Anemia ICD Codes: D64.9 - Anemia, unspecified SNOMED: 081621639 Assessment/Plan: NGTF >>> increase to 40 cc on reglan swallow eval when more alert fu pulm recs Subjective ROS Limited/Unobtainable: No Allergies: Coded Allergies: No Known Allergies (Unverified , 01/29/19) Objective Last 24 Hour Vital Signs Date Time Temp Pulse Resp B/P (MAP) Pulse Ox O2 Delivery O2 Flow Rate FiO2 03/02/19 09:00 Venturi Mask 12.0 03/02/19 08:00 12.0 50 03/02/19 08:00 96.1 76 21 130/66 (87) 95 03/02/19 04:00 99.3 75 32 126/70 (88) 99 03/02/19 04:00 12.0 50 03/02/19 04:00 76 03/02/19 00:00 98.9 74 25 119/57 (77) 99 03/02/19 00:00 74 03/01/19 20:44 Venturi Mask 12.0 03/01/19 20:00 12.0 50 03/01/19 20:00 73 03/01/19 20:00 99.0 73 25 130/68 (88) 99 03/01/19 16:00 12.0 50 03/01/19 16:00 69 03/01/19 16:00 97.6 72 20 130/58 (82) 96 03/01/19 12:00 97.9 70 20 116/60 (78) 92 03/01/19 12:00 14.0 55 03/01/19 11:49 73 Intake and Output 03/01/19 03/02/19 19:00 07:00 Intake Total 2580 ml 480 ml Balance 2580 ml 480 ml Free Water 120 ml Tube Feeding 360 ml 360 ml Hemodialysis 2000 ml Other 220 ml # Bowel Movements 1 Laboratory Tests 03/01/19 11:45: Prothrombin Time 12.7H, Prothromb Time International Ratio 1.2H, Activated Partial Thromboplast Time 37H, Hepatitis B Surface Antigen Negative 03/01/19 18:00: Random Vancomycin Level 16.2 03/02/19 04:00: Random Vancomycin Level 32.1, White Blood Count 11.8H, Red Blood Count 3.47L, Hemoglobin 10.3L, Hematocrit 32.7L, Mean Corpuscular Volume 94, Mean Corpuscular Hemoglobin 29.6, Mean Corpuscular Hemoglobin Concent 31.5L, Red Cell Distribution Width 17.5H, Platelet Count 188, Mean Platelet Volume 7.5, Neutrophils (%) (Auto) 78.3H, Lymphocytes (%) (Auto) 12.3L, Monocytes (%) (Auto ) 7.8, Eosinophils (%) (Auto) 1.1, Basophils (%) (Auto) 0.5, Sodium Level 138, Potassium Level 4.0, Chloride Level 100, Carbon Dioxide Level 29, Anion Gap 9, Blood Urea Nitrogen 58H, Creatinine 5.6H, Estimat Glomerular Filtration Rate 10.3, Glucose Level 216H, Uric Acid 5.2, Calcium Level 8.0L, Phosphorus Level 4.2, Magnesium Level 2.4, Total Bilirubin 1.3H, Direct Bilirubin 0.8H, Aspartate Amino Transf (AST/SGOT) 17, Alanine Aminotransferase (ALT/SGPT) 13, Alkaline Phosphatase 175H, C-Reactive Protein, Quantitative 13.9H, Pro-B-Type Natriuretic Peptide > 85818Q, Total Protein 7.4, Albumin 1.9L, Globulin 5.5, Albumin/Globulin Ratio 0.3L Height (Feet): 5 Height (Inches): 8.00 Weight (Pounds): 161 General Appearance: lethargic EENT: normal ENT inspection Neck: supple Cardiovascular: normal rate Respiratory/Chest: decreased breath sounds Abdomen: normal bowel sounds, non tender, soft Extremities: non-tender Alfred Chaudhari MD Mar 02, 2019 09:44
--- NOTE | 2019-03-02 09:45 | NUR ---
NURSE NOTES: Dr Rose making rounds at bedside, gave order OK to remove permacath. Spoke with Jesus Denise from radiology for removal. Consent signed by , on the chart. Will continue to monitor patient.
--- NOTE | 2019-03-02 10:11 | NUR ---
RD ASSESSMENT & RECOMMENDATIONS SEE CARE ACTIVITY FOR COMPLETE ASSESSMENT DAILY ESTIMATED NEEDS: Needs based on ESRD w/ HD, wound 75kg 30-35 kcals/kg [id number] total kcals 1.25-1.5 g protein/kg 94-135 g total protein Fluid per Md, on HD NUTRITION DIAGNOSIS: Increased kcal and pro needs r/t renal dysfunction and ESRD as evidenced by pt on dialysis w/ non-blanching erythema to R 1st metatarsal, L hallux, and BL heels. 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 .
--- NOTE | 2019-03-02 10:23 | Infectious Diseases Prog Note ---
Assessment/Plan Assessment/Plan 63 yo male with PMHx of ESRD on HD, DM, and HTN who was sent to the ED from his longterm for SOB. Sepsis Bacteremia Blood Cx 02/21/19 - MRSA Pos 2/2 Blood Cx 02/24/19 - MRSA Blood Cx 02/24/19 Permacath - MRSA TTE 02/22/19 - No sign of vegetations Blood Cx 02/28/19 - MRSA Respiratory failure Likely due to PNA vs Plerual effusions CXR showed large bilateral pleural effusions No fever Leukocytosis ESRD on HD DM HTN PLAN - The Permacath is likely infected - Continue Vancomycin #9 - 03/01/19 SP Cefepime #8 - f/u repeat Cx cultures - Monitor CBC and Temps - MARJAN pend Thank you for this consult. [facility] will continue to follow the patient with you during this hospitalization. Subjective Allergies: Coded Allergies: No Known Allergies (Unverified , 01/29/19) Subjective Afebrile No Leukcytosis Persistent bacteremia Objective Vital Signs Last 24 Hour Vital Signs Date Time Temp Pulse Resp B/P (MAP) Pulse Ox O2 Delivery O2 Flow Rate FiO2 03/02/19 09:00 Venturi Mask 12.0 03/02/19 08:00 12.0 50 03/02/19 08:00 96.1 76 21 130/66 (87) 95 03/02/19 07:46 77 03/02/19 04:00 99.3 75 32 126/70 (88) 99 03/02/19 04:00 12.0 50 03/02/19 04:00 76 03/02/19 00:00 98.9 74 25 119/57 (77) 99 03/02/19 00:00 74 03/01/19 20:44 Venturi Mask 12.0 03/01/19 20:00 12.0 50 03/01/19 20:00 73 03/01/19 20:00 99.0 73 25 130/68 (88) 99 03/01/19 16:00 12.0 50 03/01/19 16:00 69 03/01/19 16:00 97.6 72 20 130/58 (82) 96 03/01/19 12:00 97.9 70 20 116/60 (78) 92 03/01/19 12:00 14.0 55 03/01/19 11:49 73 Height (Feet): 5 Height (Inches): 8.00 Weight (Pounds): 161 Objective Gen: On NRB mask 50% O2 HEENT: NCAT, MMM, EOMI LUNGS: CTAB, No W CARDS: RRR, S1, S2 ABD: Soft, NT, ND Microbiology Date/Time Source Procedure Growth Status 02/28/19 10:50 Blood Blood Culture - Preliminary Gram Positive Cocci Resulted 02/28/19 10:40 Blood Blood Culture - Preliminary Gram Positive Cocci Resulted Laboratory Tests Test 03/01/19 11:45 03/01/19 18:00 03/02/19 04:00 Prothrombin Time 12.7 SEC (9.30-11.50) H Prothromb Time International Ratio 1.2 (0.9-1.1) H Activated Partial Thromboplast Time 37 SEC (23-33) H Hepatitis B Surface Antigen Negative (NEGATIVE) Random Vancomycin Level 16.2 ug/mL 32.1 ug/mL White Blood Count 11.8 K/UL (4.8-10.8) H Red Blood Count 3.47 M/UL (4.70-6.10) L Hemoglobin 10.3 G/DL (14.2-18.0) L Hematocrit 32.7 % (42.0-52.0) L Mean Corpuscular Volume 94 FL (80-99) Mean Corpuscular Hemoglobin 29.6 PG (27.0-31.0) Mean Corpuscular Hemoglobin Concent 31.5 G/DL (32.0-36.0) L Red Cell Distribution Width 17.5 % (11.6-14.8) H Platelet Count 188 K/UL (150-450) Mean Platelet Volume 7.5 FL (6.5-10.1) Neutrophils (%) (Auto) 78.3 % (45.0-75.0) H Lymphocytes (%) (Auto) 12.3 % (20.0-45.0) L Monocytes (%) (Auto) 7.8 % (1.0-10.0) Eosinophils (%) (Auto) 1.1 % (0.0-3.0) Basophils (%) (Auto) 0.5 % (0.0-2.0) Sodium Level 138 MMOL/L (136-145) Potassium Level 4.0 MMOL/L (3.5-5.1) Chloride Level 100 MMOL/L (98-107) Carbon Dioxide Level 29 MMOL/L (21-32) Anion Gap 9 mmol/L (5-15) Blood Urea Nitrogen 58 mg/dL (7-18) H Creatinine 5.6 MG/DL (0.55-1.30) H Estimat Glomerular Filtration Rate 10.3 mL/min (>60) Glucose Level 216 MG/DL (74-106) H Uric Acid 5.2 MG/DL (2.6-7.2) Calcium Level 8.0 MG/DL (8.5-10.1) L Phosphorus Level 4.2 MG/DL (2.5-4.9) Magnesium Level 2.4 MG/DL (1.8-2.4) Total Bilirubin 1.3 MG/DL (0.2-1.0) H Direct Bilirubin 0.8 MG/DL (0.0-0.3) H Aspartate Amino Transf (AST/SGOT) 17 U/L (15-37) Alanine Aminotransferase (ALT/SGPT) 13 U/L (12-78) Alkaline Phosphatase 175 U/L (46-116) H C-Reactive Protein, Quantitative 13.9 mg/dL (0.00-0.90) H Pro-B-Type Natriuretic Peptide > 30065 pg/mL (0-125) H Total Protein 7.4 G/DL (6.4-8.2) Albumin 1.9 G/DL (3.4-5.0) L Globulin 5.5 g/dL Albumin/Globulin Ratio 0.3 (1.0-2.7) L Current Medications Medications (Trade) Dose Ordered Sig/Feli Route PRN Reason Start Time Stop Time Status Last Admin Dose Admin Acetaminophen (Tylenol) 650 mg Q4HR PRN NG Mild Pain/Temp > 100.5 02/28/19 09:30 03/30/19 09:29 02/28/19 09:56 Chlorhexidine Gluconate (Kiara-Hex 2%) 1 applic DAILY@1999 TOPIC 02/27/19 20:00 03/25/19 19:59 03/01/19 19:51 Dextrose (Dextrose 50%) 25 ml Q30M PRN IV Hypoglycemia 02/27/19 13:15 03/23/19 20:44 Dextrose (Dextrose 50%) 50 ml Q30M PRN IV Hypoglycemia 02/27/19 13:15 03/23/19 20:44 Heparin Sodium (Porcine) (Heparin 5000 units/ml) 5,000 units EVERY 8 HOURS SUBQ 02/27/19 14:00 03/25/19 15:59 03/02/19 06:36 Insulin Aspart (NovoLOG) BEFORE MEALS AND HS SUBQ 02/27/19 16:30 03/23/19 20:59 03/02/19 06:37 Metoclopramide HCl (Reglan) 5 mg Q6H PRN IVP Nausea & Vomiting 2ND CHOICE 02/28/19 10:15 03/30/19 10:14 Midodrine (Pro-Amatine) 10 mg THREE TIMES A DAY ORAL 02/27/19 13:00 03/25/19 17:59 03/02/19 08:38 Ondansetron HCl (Zofran) 4 mg Q6H PRN IVP Nausea & Vomiting 02/27/19 14:45 03/23/19 20:44 Pantoprazole (Protonix) 40 mg EVERY 12 HOURS IVP 02/27/19 21:00 03/24/19 10:29 03/02/19 08:39 Polyethylene Glycol (Miralax) 17 gm DAILYPRN PRN ORAL Constipation 02/27/19 20:45 03/23/19 20:44 Promethazine HCl/ Codeine (Phenergan with Codeine) 5 ml Q4H PRN ORAL For Cough 02/27/19 13:00 03/23/19 12:59 02/27/19 15:03 Sevelamer Carbonate (Renvela) 1,600 mg THREE TIMES A DAY ORAL 02/27/19 13:00 03/27/19 18:27 03/02/19 08:40 Vancomycin HCl (Vanco rx to dose) 1 ea DAILY PRN MISC Per rx protocol 02/28/19 09:00 03/24/19 10:14 Jaime Lux MD Mar 02, 2019 10:23
--- NOTE | 2019-03-02 10:40 | NUR ---
NURSE NOTES: Permacath tip sent down to lab for culture.
--- NOTE | 2019-03-02 11:30 | NUR ---
NURSE NOTES: Dressing intact on right chest,no bleeding noted. Will continue to monitor.
[2019-03-02 12:00] VITALS: BP 123/72
--- NOTE | 2019-03-02 14:17 | Pulmonology Progress Note ---
Assessment/Plan Problems: (1) Infection, dialysis vascular access (2) Sepsis (3) Gram-positive bacteremia (4) Pleural effusion (5) Intractable abdominal pain (6) ESRF (end stage renal failure) (7) Diabetes mellitus (8) Hypertension (9) Cognitive impairment Assessment/Plan all reviewed, Persistent bacteremia caused by HD access Radiology will remove the line today after HD (hopefully) increasing right effusion, might be infected, need thoracentesis BC positive for Staph aureus again symptomatic treatment titrate fio2 to sat of 92% check electrolytes HD by nephrology sliding scale dvt prophylaxis. Subjective ROS Limited/Unobtainable: No Constitutional: Reports: no symptoms HEENT: Repors: no symptoms Respiratory: Reports: no symptoms Allergies: Coded Allergies: No Known Allergies (Unverified , 01/29/19) Objective Last 24 Hour Vital Signs Date Time Temp Pulse Resp B/P (MAP) Pulse Ox O2 Delivery O2 Flow Rate FiO2 03/02/19 12:00 98.2 76 24 123/72 (89) 97 03/02/19 12:00 12.0 50 03/02/19 11:34 76 03/02/19 09:00 Venturi Mask 12.0 03/02/19 08:00 12.0 50 03/02/19 08:00 96.1 76 21 130/66 (87) 95 03/02/19 07:46 77 03/02/19 04:00 99.3 75 32 126/70 (88) 99 03/02/19 04:00 12.0 50 03/02/19 04:00 76 03/02/19 00:00 98.9 74 25 119/57 (77) 99 03/02/19 00:00 74 03/01/19 20:44 Venturi Mask 12.0 03/01/19 20:00 12.0 50 03/01/19 20:00 73 03/01/19 20:00 99.0 73 25 130/68 (88) 99 03/01/19 16:00 12.0 50 03/01/19 16:00 69 03/01/19 16:00 97.6 72 20 130/58 (82) 96 Intake and Output 03/01/19 03/02/19 19:00 07:00 Intake Total 2580 ml 480 ml Balance 2580 ml 480 ml Free Water 120 ml Tube Feeding 360 ml 360 ml Hemodialysis 2000 ml Other 220 ml # Bowel Movements 1 General Appearance: WD/WN HEENT: normocephalic Respiratory/Chest: chest wall non-tender, lungs clear Cardiovascular: normal peripheral pulses Abdomen: normal bowel sounds Genitourinary: normal external genitalia Extremities: no cyanosis Skin: no rash Neurologic/Psychiatric: rehabilitation physician II-XII grossly normal Lymphatic: no neck adenopathy Microbiology Date/Time Source Procedure Growth Status 02/28/19 10:50 Blood Blood Culture - Preliminary Gram Positive Cocci Resulted 02/28/19 10:40 Blood Blood Culture - Preliminary Gram Positive Cocci Resulted Laboratory Tests 03/01/19 18:00: Random Vancomycin Level 16.2 03/02/19 04:00: Random Vancomycin Level 32.1, White Blood Count 11.8H, Red Blood Count 3.47L, Hemoglobin 10.3L, Hematocrit 32.7L, Mean Corpuscular Volume 94, Mean Corpuscular Hemoglobin 29.6, Mean Corpuscular Hemoglobin Concent 31.5L, Red Cell Distribution Width 17.5H, Platelet Count 188, Mean Platelet Volume 7.5, Neutrophils (%) (Auto) 78.3H, Lymphocytes (%) (Auto) 12.3L, Monocytes (%) (Auto ) 7.8, Eosinophils (%) (Auto) 1.1, Basophils (%) (Auto) 0.5, Sodium Level 138, Potassium Level 4.0, Chloride Level 100, Carbon Dioxide Level 29, Anion Gap 9, Blood Urea Nitrogen 58H, Creatinine 5.6H, Estimat Glomerular Filtration Rate 10.3, Glucose Level 216H, Uric Acid 5.2, Calcium Level 8.0L, Phosphorus Level 4.2, Magnesium Level 2.4, Total Bilirubin 1.3H, Direct Bilirubin 0.8H, Aspartate Amino Transf (AST/SGOT) 17, Alanine Aminotransferase (ALT/SGPT) 13, Alkaline Phosphatase 175H, C-Reactive Protein, Quantitative 13.9H, Pro-B-Type Natriuretic Peptide > 98454V, Total Protein 7.4, Albumin 1.9L, Globulin 5.5, Albumin/Globulin Ratio 0.3L Current Medications Medications (Trade) Dose Ordered Sig/Feli Route PRN Reason Start Time Stop Time Status Last Admin Dose Admin Acetaminophen (Tylenol) 650 mg Q4HR PRN NG Mild Pain/Temp > 100.5 02/28/19 09:30 2/5/20 09:29 02/28/19 09:56 Chlorhexidine Gluconate (Kiara-Hex 2%) 1 applic DAILY@2000 TOPIC 02/27/19 20:00 03/25/19 19:59 03/01/19 19:51 Dextrose (Dextrose 50%) 25 ml Q30M PRN IV Hypoglycemia 02/27/19 13:15 03/23/19 20:44 Dextrose (Dextrose 50%) 50 ml Q30M PRN IV Hypoglycemia 02/27/19 13:15 03/23/19 20:44 Heparin Sodium (Porcine) (Heparin 5000 units/ml) 5,000 units EVERY 8 HOURS SUBQ 02/27/19 14:00 03/25/19 15:59 03/02/19 13:35 Insulin Aspart (NovoLOG) BEFORE MEALS AND HS SUBQ 02/27/19 16:30 03/23/19 20:59 03/02/19 11:09 Metoclopramide HCl (Reglan) 5 mg Q6H PRN IVP Nausea & Vomiting 2ND CHOICE 02/28/19 10:15 03/30/19 10:14 Midodrine (Pro-Amatine) 10 mg THREE TIMES A DAY ORAL 02/27/19 13:00 03/25/19 17:59 03/02/19 13:34 Ondansetron HCl (Zofran) 4 mg Q6H PRN IVP Nausea & Vomiting 02/27/19 14:45 03/23/19 20:44 Pantoprazole (Protonix) 40 mg EVERY 12 HOURS IVP 02/27/19 21:00 03/24/19 10:29 03/02/19 08:39 Polyethylene Glycol (Miralax) 17 gm DAILYPRN PRN ORAL Constipation 02/27/19 20:45 03/23/19 20:44 Promethazine HCl/ Codeine (Phenergan with Codeine) 5 ml Q4H PRN ORAL For Cough 02/27/19 13:00 03/23/19 12:59 02/27/19 15:03 Sevelamer Carbonate (Renvela) 1,600 mg THREE TIMES A DAY ORAL 02/27/19 13:00 03/27/19 18:27 03/02/19 13:34 Vancomycin HCl (Vanco rx to dose) 1 ea DAILY PRN MISC Per rx protocol 02/28/19 09:00 03/24/19 10:14 Maurizio Rose MD Mar 02, 2019 14:17
--- NOTE | 2019-03-02 14:40 | NUR ---
NURSE NOTES: Dr Lara at bedside, notified and made aware regarding Permacath removal this morning. No new orders at this time. Will continue to monitor.
--- NOTE | 2019-03-02 14:46 | Diagnostic Imaging Report ---
Indication: Infected permacath. Comparison: None Procedure: After indications, procedure, risks, potential complications and alternatives of the procedure were explained, written informed consent was obtained. The procedure was performed at the bedside. The right neck was prepped and draped in standard sterile fashion. Using blunt dissection the permacath was removed without issues. Post procedure chest x-ray performed. There is no evidence of pneumothorax or retained catheter. Chest x-ray notable for bilateral pleural effusions and pulmonary vascular congestion. NG tube is present with the tip in good position in the stomach lumen. Impression: Successful removal of a right upper chest wall permacath..
--- NOTE | 2019-03-02 15:14 | NUR ---
NURSE NOTES: Patient noted to have saturation of 91% on Venturi Mask 50%, 12L. RT Eri notified and titrated oxygen to 14L FiO2 55%. Patient saturation remains on 91%. Dr Rose notified and made aware. No orders received at this time. Will continue to monitor patient.
[2019-03-02 15:16] LABS: INR 1.2 (0.9-1.1)
--- NOTE | 2019-03-02 15:28 | NUR ---
NURSE NOTES: Dr Rose ordered ABG; notified RT Eri. ABG completed by RT, patient on Venturi Mask 55%, 14L. Notified Dr Rose with results. Awaiting for orders at this time. Will continue to monitor patient.
--- NOTE | 2019-03-02 15:38 | NUR ---
NURSE NOTES: Dr Rose gave order to keep patient on Venturi Mask, keep O2 saturation >92%. Will carry out, RT also notified and will continue to monitor patient.
[2019-03-02 16:00] VITALS: BP 123/72
--- NOTE | 2019-03-02 16:42 | Nephrology Progress Note ---
Assessment/Plan Problem List: (1) ESRF (end stage renal failure) (2) Sepsis Assessment: ? line related (3) Diabetes mellitus (4) Pleural effusion (5) Anemia (6) Bradycardia Assessment ESRD - Has right chest permacath Anemia Leukocytosis Pleural effusion Bradycardia troponin elevation cardiomyopathy . Plan Antibiotics last HD 03/01 Catheter removed 03/02 2D echo 40% start midodrine Subjective ROS Limited/Unobtainable: No Constitutional: Reports: malaise, weakness Objective Objective Last 24 Hour Vital Signs Date Time Temp Pulse Resp B/P (MAP) Pulse Ox O2 Delivery O2 Flow Rate FiO2 03/02/19 16:00 Venturi Mask 14.0 03/02/19 16:00 14.0 55 03/02/19 12:00 98.2 76 24 123/72 (89) 97 03/02/19 12:00 12.0 50 03/02/19 11:34 76 03/02/19 09:00 Venturi Mask 12.0 03/02/19 08:00 12.0 50 03/02/19 08:00 96.1 76 21 130/66 (87) 95 03/02/19 07:46 77 03/02/19 04:00 99.3 75 32 126/70 (88) 99 03/02/19 04:00 12.0 50 03/02/19 04:00 76 03/02/19 00:00 98.9 74 25 119/57 (77) 99 03/02/19 00:00 74 03/01/19 20:44 Venturi Mask 12.0 03/01/19 20:00 12.0 50 03/01/19 20:00 73 03/01/19 20:00 99.0 73 25 130/68 (88) 99 Intake and Output 03/01/19 03/02/19 19:00 07:00 Intake Total 2580 ml 480 ml Balance 2580 ml 480 ml Free Water 120 ml Tube Feeding 360 ml 360 ml Hemodialysis 2000 ml Other 220 ml # Bowel Movements 1 Laboratory Tests 03/01/19 18:00: Random Vancomycin Level 16.2 03/02/19 04:00: Random Vancomycin Level 32.1, White Blood Count 11.8H, Red Blood Count 3.47L, Hemoglobin 10.3L, Hematocrit 32.7L, Mean Corpuscular Volume 94, Mean Corpuscular Hemoglobin 29.6, Mean Corpuscular Hemoglobin Concent 31.5L, Red Cell Distribution Width 17.5H, Platelet Count 188, Mean Platelet Volume 7.5, Neutrophils (%) (Auto) 78.3H, Lymphocytes (%) (Auto) 12.3L, Monocytes (%) (Auto ) 7.8, Eosinophils (%) (Auto) 1.1, Basophils (%) (Auto) 0.5, Sodium Level 138, Potassium Level 4.0, Chloride Level 100, Carbon Dioxide Level 29, Anion Gap 9, Blood Urea Nitrogen 58H, Creatinine 5.6H, Estimat Glomerular Filtration Rate 10.3, Glucose Level 216H, Uric Acid 5.2, Calcium Level 8.0L, Phosphorus Level 4.2, Magnesium Level 2.4, Total Bilirubin 1.3H, Direct Bilirubin 0.8H, Aspartate Amino Transf (AST/SGOT) 17, Alanine Aminotransferase (ALT/SGPT) 13, Alkaline Phosphatase 175H, C-Reactive Protein, Quantitative 13.9H, Pro-B-Type Natriuretic Peptide > 33337U, Total Protein 7.4, Albumin 1.9L, Globulin 5.5, Albumin/Globulin Ratio 0.3L 03/02/19 14:45: Prothrombin Time 12.3H, Prothromb Time International Ratio 1.2H, Activated Partial Thromboplast Time 37H 03/02/19 15:20: Arterial Blood pH 7.314L, Arterial Blood Partial Pressure CO2 63.3*H, Arterial Blood Partial Pressure O2 62.5L, Arterial Blood HCO3 31.6H, Arterial Blood Oxygen Saturation 89.1*L, Arterial Blood Base Excess 4.0H, Shai Test Positive Height (Feet): 5 Height (Inches): 8.00 Weight (Pounds): 161 General Appearance: no apparent distress Cardiovascular: normal rate Respiratory/Chest: decreased breath sounds Abdomen: soft Magan Lara MD Mar 02, 2019 16:42
--- NOTE | 2019-03-02 19:05 | NUR ---
HAND-OFF: Report given to Dorinda Kaminski RN. Endorsed plan of care. Patient in stable condition.
--- NOTE | 2019-03-02 19:06 | NUR ---
NURSE NOTES: received pt from Bree PETERSON., pt is awake and nonverbal, family member at the bedside. pt is obtunded. pt is on venturi 55% 14L and O2sat is at 94-96%. Left Nare NG Tube is intact, patent, and clean. no residual noted. Left FA 22G TKO is running. pt is in sinus rhythm. bed at the lowest position, alarmed, and locked. call light within reach. will continue to monitor pt with plan of care.
[2019-03-02 20:00] VITALS: BP 114/68
--- NOTE | 2019-03-02 20:02 | Cardiology Progress Note ---
Assessment/Plan Assessment/Plan chf cm no sig cad bacteremi esrd on hemodialysis altered mentation dr dickey to consider neuro evaluation cath 07/2018 lacusc: lm 20% distally , lad 20% mid , lcx 30% , rca MLIs wbc is stable is not febrile no change in mentation catheter removed a bit more tachypenic today cxr echo report i reviewed some of the images not appear to have any large veg on the valves discusses with dr dickey d/w at bedside observe respirtion Subjective ROS Limited/Unobtainable: Yes Subjective awake but not responsive Objective Last 24 Hour Vital Signs Date Time Temp Pulse Resp B/P (MAP) Pulse Ox O2 Delivery O2 Flow Rate FiO2 03/02/19 16:00 97.0 80 27 123/72 (89) 94 03/02/19 16:00 Venturi Mask 14.0 03/02/19 16:00 14.0 55 03/02/19 15:18 78 03/02/19 12:00 98.2 76 24 123/72 (89) 97 03/02/19 12:00 12.0 50 03/02/19 11:34 76 03/02/19 09:00 Venturi Mask 12.0 03/02/19 08:00 12.0 50 03/02/19 08:00 96.1 76 21 130/66 (87) 95 03/02/19 07:46 77 03/02/19 04:00 99.3 75 32 126/70 (88) 99 03/02/19 04:00 12.0 50 03/02/19 04:00 76 03/02/19 00:00 98.9 74 25 119/57 (77) 99 03/02/19 00:00 74 03/01/19 20:44 Venturi Mask 12.0 03/01/19 20:00 12.0 50 03/01/19 20:00 73 03/01/19 20:00 99.0 73 25 130/68 (88) 99 General Appearance: no apparent distress Cardiovascular: normal rate Respiratory/Chest: rhonchi - right Abdomen: normal bowel sounds, non tender, soft Extremities: no swelling Intake and Output 03/01/19 03/02/19 19:00 07:00 Intake Total 2580 ml 480 ml Balance 2580 ml 480 ml Free Water 120 ml Tube Feeding 360 ml 360 ml Hemodialysis 2000 ml Other 220 ml # Bowel Movements 1 Laboratory Tests Test 03/02/19 04:00 03/02/19 14:45 03/02/19 15:20 White Blood Count 11.8 K/UL (4.8-10.8) H Red Blood Count 3.47 M/UL (4.70-6.10) L Hemoglobin 10.3 G/DL (14.2-18.0) L Hematocrit 32.7 % (42.0-52.0) L Mean Corpuscular Volume 94 FL (80-99) Mean Corpuscular Hemoglobin 29.6 PG (27.0-31.0) Mean Corpuscular Hemoglobin Concent 31.5 G/DL (32.0-36.0) L Red Cell Distribution Width 17.5 % (11.6-14.8) H Platelet Count 188 K/UL (150-450) Mean Platelet Volume 7.5 FL (6.5-10.1) Neutrophils (%) (Auto) 78.3 % (45.0-75.0) H Lymphocytes (%) (Auto) 12.3 % (20.0-45.0) L Monocytes (%) (Auto) 7.8 % (1.0-10.0) Eosinophils (%) (Auto) 1.1 % (0.0-3.0) Basophils (%) (Auto) 0.5 % (0.0-2.0) Sodium Level 138 MMOL/L (136-145) Potassium Level 4.0 MMOL/L (3.5-5.1) Chloride Level 100 MMOL/L (98-107) Carbon Dioxide Level 29 MMOL/L (21-32) Anion Gap 9 mmol/L (5-15) Blood Urea Nitrogen 58 mg/dL (7-18) H Creatinine 5.6 MG/DL (0.55-1.30) H Estimat Glomerular Filtration Rate 10.3 mL/min (>60) Glucose Level 216 MG/DL (74-106) H Uric Acid 5.2 MG/DL (2.6-7.2) Calcium Level 8.0 MG/DL (8.5-10.1) L Phosphorus Level 4.2 MG/DL (2.5-4.9) Magnesium Level 2.4 MG/DL (1.8-2.4) Total Bilirubin 1.3 MG/DL (0.2-1.0) H Direct Bilirubin 0.8 MG/DL (0.0-0.3) H Aspartate Amino Transf (AST/SGOT) 17 U/L (15-37) Alanine Aminotransferase (ALT/SGPT) 13 U/L (12-78) Alkaline Phosphatase 175 U/L (46-116) H C-Reactive Protein, Quantitative 13.9 mg/dL (0.00-0.90) H Pro-B-Type Natriuretic Peptide > 78178 pg/mL (0-125) H Total Protein 7.4 G/DL (6.4-8.2) Albumin 1.9 G/DL (3.4-5.0) L Globulin 5.5 g/dL Albumin/Globulin Ratio 0.3 (1.0-2.7) L Random Vancomycin Level 32.1 ug/mL Prothrombin Time 12.3 SEC (9.30-11.50) H Prothromb Time International Ratio 1.2 (0.9-1.1) H Activated Partial Thromboplast Time 37 SEC (23-33) H Arterial Blood pH 7.314 (7.350-7.450) Arterial Blood Partial Pressure CO2 63.3 mmHg (35.0-45.0) *H Arterial Blood Partial Pressure O2 62.5 mmHg (75.0-100.0) L Arterial Blood HCO3 31.6 mmol/L (22.0-26.0) H Arterial Blood Oxygen Saturation 89.1 % (95-100) *L Arterial Blood Base Excess 4.0 (-2-2) H Shai Test Positive Microbiology Date/Time Source Procedure Growth Status 02/28/19 10:50 Blood Blood Culture - Preliminary Gram Positive Cocci Resulted 02/28/19 10:40 Blood Blood Culture - Preliminary Gram Positive Cocci Resulted Enio Soto MD Mar 02, 2019 20:02
--- NOTE | 2019-03-02 20:04 | Cardiology Progress Note ---
Assessment/Plan Assessment/Plan chf cm no sig cad bacteremi esrd on hemodialysis altered mentation dr dickey to consider neuro evaluation cath 07/2018 lacusc: lm 20% distally , lad 20% mid , lcx 30% , rca MLIs wbc is stable is not febrile no change in mentation catheter removed a bit more tachypenic today cxr echo report i reviewed some of the images not appear to have any large veg on the valves discusses with dr dickye d/w at bedside observe respirtion Subjective Subjective awake but not responsive Objective Last 24 Hour Vital Signs Date Time Temp Pulse Resp B/P (MAP) Pulse Ox O2 Delivery O2 Flow Rate FiO2 03/02/19 16:00 97.0 80 27 123/72 (89) 94 03/02/19 16:00 Venturi Mask 14.0 03/02/19 16:00 14.0 55 03/02/19 15:18 78 03/02/19 12:00 98.2 76 24 123/72 (89) 97 03/02/19 12:00 12.0 50 03/02/19 11:34 76 03/02/19 09:00 Venturi Mask 12.0 03/02/19 08:00 12.0 50 03/02/19 08:00 96.1 76 21 130/66 (87) 95 03/02/19 07:46 77 03/02/19 04:00 99.3 75 32 126/70 (88) 99 03/02/19 04:00 12.0 50 03/02/19 04:00 76 03/02/19 00:00 98.9 74 25 119/57 (77) 99 03/02/19 00:00 74 03/01/19 20:44 Venturi Mask 12.0 Intake and Output 03/01/19 03/02/19 19:00 07:00 Intake Total 2580 ml 480 ml Balance 2580 ml 480 ml Free Water 120 ml Tube Feeding 360 ml 360 ml Hemodialysis 2000 ml Other 220 ml # Bowel Movements 1 Laboratory Tests Test 03/02/19 04:00 03/02/19 14:45 03/02/19 15:20 03/02/19 19:45 White Blood Count 11.8 K/UL (4.8-10.8) H Red Blood Count 3.47 M/UL (4.70-6.10) L Hemoglobin 10.3 G/DL (14.2-18.0) L Hematocrit 32.7 % (42.0-52.0) L Mean Corpuscular Volume 94 FL (80-99) Mean Corpuscular Hemoglobin 29.6 PG (27.0-31.0) Mean Corpuscular Hemoglobin Concent 31.5 G/DL (32.0-36.0) L Red Cell Distribution Width 17.5 % (11.6-14.8) H Platelet Count 188 K/UL (150-450) Mean Platelet Volume 7.5 FL (6.5-10.1) Neutrophils (%) (Auto) 78.3 % (45.0-75.0) H Lymphocytes (%) (Auto) 12.3 % (20.0-45.0) L Monocytes (%) (Auto) 7.8 % (1.0-10.0) Eosinophils (%) (Auto) 1.1 % (0.0-3.0) Basophils (%) (Auto) 0.5 % (0.0-2.0) Sodium Level 138 MMOL/L (136-145) Potassium Level 4.0 MMOL/L (3.5-5.1) Chloride Level 100 MMOL/L (98-107) Carbon Dioxide Level 29 MMOL/L (21-32) Anion Gap 9 mmol/L (5-15) Blood Urea Nitrogen 58 mg/dL (7-18) H Creatinine 5.6 MG/DL (0.55-1.30) H Estimat Glomerular Filtration Rate 10.3 mL/min (>60) Glucose Level 216 MG/DL (74-106) H Uric Acid 5.2 MG/DL (2.6-7.2) Calcium Level 8.0 MG/DL (8.5-10.1) L Phosphorus Level 4.2 MG/DL (2.5-4.9) Magnesium Level 2.4 MG/DL (1.8-2.4) Total Bilirubin 1.3 MG/DL (0.2-1.0) H Direct Bilirubin 0.8 MG/DL (0.0-0.3) H Aspartate Amino Transf (AST/SGOT) 17 U/L (15-37) Alanine Aminotransferase (ALT/SGPT) 13 U/L (12-78) Alkaline Phosphatase 175 U/L (46-116) H C-Reactive Protein, Quantitative 13.9 mg/dL (0.00-0.90) H Pro-B-Type Natriuretic Peptide > 40262 pg/mL (0-125) H Total Protein 7.4 G/DL (6.4-8.2) Albumin 1.9 G/DL (3.4-5.0) L Globulin 5.5 g/dL Albumin/Globulin Ratio 0.3 (1.0-2.7) L Random Vancomycin Level 32.1 ug/mL Prothrombin Time 12.3 SEC (9.30-11.50) H Prothromb Time International Ratio 1.2 (0.9-1.1) H Activated Partial Thromboplast Time 37 SEC (23-33) H Arterial Blood pH 7.314 (7.350-7.450) Arterial Blood Partial Pressure CO2 63.3 mmHg (35.0-45.0) *H Arterial Blood Partial Pressure O2 62.5 mmHg (75.0-100.0) L Arterial Blood HCO3 31.6 mmol/L (22.0-26.0) H Arterial Blood Oxygen Saturation 89.1 % (95-100) *L Arterial Blood Base Excess 4.0 (-2-2) H Shai Test Positive Ammonia Pending Vitamin B12 Level Pending Microbiology Date/Time Source Procedure Growth Status 02/28/19 10:50 Blood Blood Culture - Preliminary Gram Positive Cocci Resulted 02/28/19 10:40 Blood Blood Culture - Preliminary Gram Positive Cocci Resulted Enio Soto MD Mar 02, 2019 20:04
[2019-03-02 20:28] LABS: AMMONIA 41 umol/L (11-32)
[2019-03-02] MEDS: Dyna-Hex 2% Top Sol 2oz TOPIC SCH (21:00)
--- NOTE | 2019-03-02 22:30 | Consultation ---
DATE OF CONSULTATION: 03/02/2019 NEUROLOGICAL CONSULTATION CONSULTING PHYSICIAN: Sebas Cartagena M.D. HISTORY OF PRESENT ILLNESS: This 63-year-old right-handed man was admitted on 02/21/2019 with a chief complaint of shortness of breath and cardiomyopathy. The patient cannot give a history at all. The patient has a long history of a heart disease for years. He never had a stent or had a heart surgery. He also had diabetes type 2 for 12 years and hypertension for unknown amount of time and hyperlipidemia. He never smoked, drank, or took illegal drugs. The patient apparently had no problems with his memory prior to recently. There is no history of seizures or previous history of stroke or Parkinson disease. He had headaches over the last 2 years and suffers from glaucoma and is essentially blind. Over the last 4 months, he has had trouble with his gait because mainly leg swelling. He had to be hospitalized twice and his swelling now is treated successfully. His visual loss is from glaucoma. There is no history of any hearing loss. He has had neck pain for the last 2 years. There are no tremors, shakes, dysarthria, or dysphagia. He did recently noted to have end-stage renal disease and was placed on dialysis at [facility]. The patient developed fevers, noted to have altered mental status. The patient also has a history of diabetic retinopathy and renal disease. Chronic wounds in the lower extremities. 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 He also has obesity. There is no history of head injury. The patient was brought to this hospital. His white count was significantly elevated and he was anemic with thrombocytopenia. His sedimentation rate was 62 on 02/24/2019. The patient was started on antibiotics including vancomycin. He was also placed on Prevacid, NovoLog insulin, ProAmatine 10 mg, Zofran, Protonix, MiraLAX, and Phenergan. The patient's initial blood gas was basically normal. However, he developed CO2 retention with respiratory acidosis. His CO2 was going steadily up. The patient was found to have bilateral pleural effusions and mild interstitial congestion on his first chest x-ray. His last chest x-ray was 02/27/2019. He still has pleural effusions. There is associated atelectasis versus pneumonia on a background of pulmonary edema. There is "stable enlargement of the cardiac and mediastinal silhouette" and a right dual lumen central venous catheter terminating in the region of the SVC. The patient had an abdominal x-ray on 02/26/2019 revealing an NG tube tip in the left upper quadrant in the proper position and bilateral pleural effusions. The patient had a noncontrast CT scan of the brain on 02/27/2019, which revealed a small scalp hematoma and chronic and age-related changes including microvascular ischemic disease. There are no other significant brain lesions. The patient's chemistries reveal initial creatinine over 4, an elevated BUN of 89 on 02/28/2019, now 58. Blood sugars were elevated, but less than 200. He had elevated liver function tests and high phosphorus, magnesium, and total bilirubin levels initially. His thyroid functions were normal except for a low free T3. The albumin is very low. The patient's PT and PTT were elevated. The INR was 1.2. The patient had positive blood cultures of MRSA. The patient was also seen by Dr. Lara. See his note. 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 The patient apparently had occasional dizzy spells; however, there is no family history of neurologic disease. PAST MEDICAL HISTORY/PAST MEDICAL ILLNESSES: 1. AODM type 2, see above. 2. Bacteremia with MRSA. 3. Hypertension, see above. 4. Organic heart disease, see above. 5. Hyperlipidemia, see above. MEDICATIONS: As an outpatient, he was on Epogen, Pepcid, NPH insulin, lispro insulin, losartan 25 mg, sulfadiazine sodium 100 g powder, vitamin B complex, albuterol sulfate, atorvastatin, carvedilol, docusate sodium. ALLERGIES: He has no allergies. HABITS: See above. SURGERIES: Except for eyes surgery and dialysis surgeries, he has had no other surgeries. SOCIAL HISTORY: He is and has 5 children in good health. 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 FAMILY HISTORY: See above. REVIEW OF SYSTEMS: His appetite is good. He is obese. PHYSICAL EXAMINATION: GENERAL: He is a well developed, obese man, lying in bed with a Ventimask on in a deep stupor. VITAL SIGNS: The pulse is 80 and regular, respiratory rate is 27, blood pressure is 123/72, temperature is 97 degrees. HEENT: Examination head, ears, eyes, nose, mouth, and throat reveals poor dentition. NECK: Stiff in the AP and lateral movements. Carotids are +2. No bruits could be appreciated because of abnormal lungs sounds. LUNGS: Diffuse rhonchi and some rales. CARDIOVASCULAR: PMI was not felt. JVP was not seen. The patient's heart tones were obscured by abnormal breath sounds. There was no obvious murmurs or rubs appreciated. ABDOMEN: Obese. Bowel sounds were decreased. There is no organomegaly or abdominal tenderness appreciated. BACK: Not tested. EXTREMITIES: There is no pitting edema in the lower extremities, but there were lesions in his lower legs, bandages on his feet including his area of the big toes. Peripheral pulses are +2 in the upper extremities, 0 in the dorsalis pedis pulses. NEUROLOGIC EXAMINATION: MENTAL STATUS: The patient is in a deep stupor. He did not respond to his name, but his eyes were open. There was no significant response to deep pain. He is having significant trouble with tachypnea. CRANIAL NERVE EXAMINATION: CRANIAL NERVE II: There is no response to threat. CRANIAL NERVES III, IV, AND : The eyes are basically in the midline. Pupils are approximately 5 mm, sluggishly reactive on the right side, probably reactive better than the left due to left pupillary defect. Fundi were not visualized. Extraocular motility was impaired. Doll's maneuver was not intact. CRANIAL NERVE V: Corneal sensation appeared to be intact bilaterally. CRANIAL NERVE VII: Face appeared to be symmetrical bilaterally. CRANIAL NERVES VIII THROUGH XII: Could not be tested. He did clench down on the tongue depressor. MUSCLE EXAMINATION: Muscle bulk is decreased in his lower extremities, especially below the knees. Tone is decreased in his arms and in his leg. Strength, there is very little movement. He would shrug his shoulders with his breathing. There is some movement in his feet with deep pain. There was no movement of his arms. REFLEXES: 0 in the upper extremities, 0 at the knees and ankles. Toe signs were mute on the right because of the bandaging. The toe could not be seen. SENSORY: There is no good movement except for perhaps some movement of his feet with pinching. IMPRESSION: This patient has a multifocal multifactorial metabolic encephalopathy. It is mainly related to sepsis. In other ways, he has septic encephalopathy, but he also has significant renal disease and needs to be further dialyzed. His prognosis is guarded. The rate in this type of encephalopathy is about 30% assumes that one cannot reverse his pulmonary, cardiac, renal, and infectious processes. I doubt that he has meningitis or encephalitis. 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 He is getting vancomycin. The patient could be in DIC and may want to evaluate him for that. I doubt that the patient has partial complex status epilepticus, although I will get an EEG to exclude that. However, I expect that there is diffuse slowing, possibly with triphasic waves. I will get a serum ammonia on him, although I doubt he has a significant component of hepatic encephalopathy; however, I cannot exclude it at this time. Therefore, the treatment is mainly to reverse his metabolic problems including his heart disease with congestive heart failure, his sepsis, and his renal dysfunction. Even if this can be obtained, he would have a prolonged recovery. The patient is also blind from diabetic retinopathy and/or glaucoma, although he has some light reaction. PLAN: 1. EEG routine. 2. Reverse his metabolic problems. 3. Serum ammonia. Thank you for this interesting case. Sebas Cartagena MD DR: LORNA JOB#: [id number] CC:
[2019-03-03] VITALS (7 sets, daily range): BP systolic 95–158; BP diastolic 47–82
--- NOTE | 2019-03-03 05:00 | NUR ---
NURSE NOTES: gave oral care, gave bath to pt. repositioned. call light within reach. O2sat is at 94%.
[2019-03-03] MEDS: Heparin 5000 units/ml inj SUBQ SCH ×2 (05:05→13:54)
[2019-03-03] MEDS: NovoLOG Insulin Flexpen SUBQ SCH ×3 (05:33→18:00)
--- NOTE | 2019-03-03 07:04 | NUR ---
NURSE NOTES: called EEG Singh. will wait for call back.
--- NOTE | 2019-03-03 07:10 | NUR ---
HAND-OFF: Report given to Diana PETERSON. endorsed plan of care. pt is in stable condition
--- NOTE | 2019-03-03 07:11 | NUR ---
NURSE NOTES: Received patient in bed. On continuous oxygen therapy, venturi mask noted with Fio2 at 55%. Labored breathing noted, with oxygen saturation noted at 93%. Left NGT noted, with continuous TF per order. Contact isolation observed. Will continue plan of care.
[2019-03-03 07:49] LABS: BASOPHILS % (AUTO) 0.4 % (0.0-2.0); EOSINOPHILS % (AUTO) 0.8 % (0.0-3.0); HEMATOCRIT 33.3 % (42.0-52.0); HEMOGLOBIN 10.2 G/DL (14.2-18.0); LYMPHOCYTES % (AUTO) 11.4 % (20.0-45.0); MEAN CORPUSCULAR VOLUME 95 FL (80-99); MONOCYTES % (AUTO) 8.2 % (1.0-10.0); NEUTROPHILS % (AUTO) 79.1 % (45.0-75.0); PLATELET COUNT 216 K/UL (150-450); RED BLOOD COUNT 3.51 M/UL (4.70-6.10); RED CELL DISTRIBUTION WIDTH 17.2 % (11.6-14.8); WHITE BLOOD COUNT 13.1 K/UL (4.8-10.8)
[2019-03-03 08:15] LABS: ALANINE AMINOTRANSFERASE 12 U/L (12-78); ALBUMIN 1.9 G/DL (3.4-5.0); ALKALINE PHOSPHATASE 181 U/L (46-116); ASPARTATE AMINO TRANSFERASE 18 U/L (15-37); BILIRUBIN,DIRECT 0.8 MG/DL (0.0-0.3)
[2019-03-03 08:17] LABS: ANION GAP 10 mmol/L (5-15); BLOOD UREA NITROGEN 82 mg/dL (7-18); CALCIUM 8.3 MG/DL (8.5-10.1); CARBON DIOXIDE 29 MMOL/L (21-32); CHLORIDE 100 MMOL/L (98-107); CREATININE 7.1 MG/DL (0.55-1.30); POTASSIUM 4.4 MMOL/L (3.5-5.1); SODIUM 139 MMOL/L (136-145)
[2019-03-03] MEDS: Renvela 800mg Pkt ORAL SCH ×3 (09:51→18:00)
[2019-03-03] MEDS: Midodrine 10mg tab ORAL SCH ×3 (09:51→18:00)
--- NOTE | 2019-03-03 10:58 | Nephrology Progress Note ---
Assessment/Plan Problem List: (1) ESRF (end stage renal failure) (2) Sepsis Assessment: ? line related (3) Diabetes mellitus (4) Pleural effusion (5) Anemia (6) Bradycardia Assessment ESRD - Has right chest permacath Anemia Leukocytosis Pleural effusion Bradycardia troponin elevation cardiomyopathy . Plan BC surveilence today Antibiotics last HD 03/01 Catheter removed 03/02 2D echo 40% start midodrine Subjective ROS Limited/Unobtainable: No Constitutional: Reports: malaise, weakness Objective Objective Last 24 Hour Vital Signs Date Time Temp Pulse Resp B/P (MAP) Pulse Ox O2 Delivery O2 Flow Rate FiO2 03/03/19 08:00 Venturi Mask 14.0 03/03/19 08:00 98.2 79 22 111/62 (78) 94 03/03/19 08:00 14.0 55 03/03/19 07:52 78 03/03/19 04:00 98.3 68 32 123/60 (81) 94 03/03/19 04:00 14.0 55 03/03/19 03:33 78 03/03/19 00:00 99.0 75 32 124/63 (83) 95 03/02/19 23:25 75 03/02/19 21:00 Venturi Mask 14.0 03/02/19 20:00 14.0 55 03/02/19 20:00 77 03/02/19 20:00 99.3 78 30 114/68 (83) 96 03/02/19 16:00 97.0 80 27 123/72 (89) 94 03/02/19 16:00 Venturi Mask 14.0 03/02/19 16:00 14.0 55 03/02/19 15:18 78 03/02/19 12:00 98.2 76 24 123/72 (89) 97 03/02/19 12:00 12.0 50 03/02/19 11:34 76 Intake and Output 03/02/19 03/03/19 19:00 07:00 Intake Total 560 ml 580 ml Balance 560 ml 580 ml Free Water 150 ml 100 ml Tube Feeding 410 ml 480 ml # Voids 1 # Bowel Movements 1 1 Laboratory Tests 03/02/19 14:45: Prothrombin Time 12.3H, Prothromb Time International Ratio 1.2H, Activated Partial Thromboplast Time 37H 03/02/19 15:20: Arterial Blood pH 7.314L, Arterial Blood Partial Pressure CO2 63.3*H, Arterial Blood Partial Pressure O2 62.5L, Arterial Blood HCO3 31.6H, Arterial Blood Oxygen Saturation 89.1*L, Arterial Blood Base Excess 4.0H, Shai Test Positive 03/02/19 19:45: Ammonia 41H, Vitamin B12 Level 1209H 03/03/19 07:00: White Blood Count 13.1H, Red Blood Count 3.51L, Hemoglobin 10.2L, Hematocrit 33.3L, Mean Corpuscular Volume 95, Mean Corpuscular Hemoglobin 28.9, Mean Corpuscular Hemoglobin Concent 30.5L, Red Cell Distribution Width 17.2H, Platelet Count 216, Mean Platelet Volume 6.1L, Neutrophils (%) (Auto) 79.1H, Lymphocytes (%) (Auto) 11.4L, Monocytes (%) (Auto) 8.2, Eosinophils (%) (Auto) 0.8, Basophils (%) (Auto) 0.4, Sodium Level 139, Potassium Level 4.4, Chloride Level 100, Carbon Dioxide Level 29, Anion Gap 10, Blood Urea Nitrogen 82H, Creatinine 7.1H, Estimat Glomerular Filtration Rate 7.8, Glucose Level 193H, Uric Acid 6.2, Calcium Level 8.3L, Phosphorus Level 5.0H, Magnesium Level 2.7H, Total Bilirubin 1.0, Direct Bilirubin 0.8H, Aspartate Amino Transf (AST/SGOT) 18 , Alanine Aminotransferase (ALT/SGPT) 12, Alkaline Phosphatase 181H, C-Reactive Protein, Quantitative 11.6H, Pro-B-Type Natriuretic Peptide > 75198L, Total Protein 7.6, Albumin 1.9L Height (Feet): 5 Height (Inches): 8.00 Weight (Pounds): 167 General Appearance: lethargic, mild distress Cardiovascular: normal rate Respiratory/Chest: decreased breath sounds Abdomen: distended Magan Lara MD Mar 03, 2019 10:58
--- NOTE | 2019-03-03 11:06 | Infectious Diseases Prog Note ---
Assessment/Plan Assessment/Plan 63 yo male with PMHx of ESRD on HD, DM, and HTN who was sent [facility] the ED from [facility] for SOB. Sepsis Bacteremia likely infected permacath TTE Neg Permacath removed 03/02/19 Blood Cx 02/21/19 - MRSA Pos 2/2 Blood Cx 02/24/19 - MRSA Blood Cx 02/24/19 Permacath - MRSA TTE 02/22/19 - No sign of vegetations Blood Cx 02/28/19 - MRSA Blood Cx 03/02/19 Permacath tip - Pend Blood Cx 03/02/19 - Pend Blood Cx 03/03/19 - Pend Respiratory failure Likely due to PNA vs Plerual effusions CXR showed large bilateral pleural effusions No fever Leukocytosis ESRD on HD DM HTN PLAN - The Permacath is likely infected - Continue Vancomycin #9 - 03/01/19 SP Cefepime #8 - f/u repeat Cx cultures - Monitor CBC and Temps - MARJAN pend Thank you for this consult. [facility] will continue to follow the patient with you during this hospitalization. Subjective Allergies: Coded Allergies: No Known Allergies (Unverified , 01/29/19) Subjective Afebrile Leukcytosis mild Persistent bacteremia Permacath removed yesterday Objective Vital Signs Last 24 Hour Vital Signs Date Time Temp Pulse Resp B/P (MAP) Pulse Ox O2 Delivery O2 Flow Rate FiO2 03/03/19 08:00 Venturi Mask 14.0 03/03/19 08:00 98.2 79 22 111/62 (78) 94 03/03/19 08:00 14.0 55 03/03/19 07:52 78 03/03/19 04:00 98.3 68 32 123/60 (81) 94 03/03/19 04:00 14.0 55 03/03/19 03:33 78 03/03/19 00:00 99.0 75 32 124/63 (83) 95 03/02/19 23:25 75 03/02/19 21:00 Venturi Mask 14.0 03/02/19 20:00 14.0 55 03/02/19 20:00 77 03/02/19 20:00 99.3 78 30 114/68 (83) 96 03/02/19 16:00 97.0 80 27 123/72 (89) 94 03/02/19 16:00 Venturi Mask 14.0 03/02/19 16:00 14.0 55 03/02/19 15:18 78 03/02/19 12:00 98.2 76 24 123/72 (89) 97 03/02/19 12:00 12.0 50 03/02/19 11:34 76 Height (Feet): 5 Height (Inches): 8.00 Weight (Pounds): 167 Objective Gen: On NRB mask 55% O2 HEENT: NCAT, MMM, EOMI LUNGS: CTAB, No W CARDS: RRR, S1, S2 ABD: Soft, NT, ND Microbiology Date/Time Source Procedure Growth Status 03/02/19 04:00 Blood Blood Culture - Preliminary Resulted 03/02/19 10:35 Other(Specify in comment) Catheter Tip Culture - Preliminary NO GROWTH Resulted Laboratory Tests Test 03/02/19 14:45 03/02/19 15:20 03/02/19 19:45 03/03/19 07:00 Prothrombin Time 12.3 SEC (9.30-11.50) H Prothromb Time International Ratio 1.2 (0.9-1.1) H Activated Partial Thromboplast Time 37 SEC (23-33) H Arterial Blood pH 7.314 (7.350-7.450) Arterial Blood Partial Pressure CO2 63.3 mmHg (35.0-45.0) *H Arterial Blood Partial Pressure O2 62.5 mmHg (75.0-100.0) L Arterial Blood HCO3 31.6 mmol/L (22.0-26.0) H Arterial Blood Oxygen Saturation 89.1 % (95-100) *L Arterial Blood Base Excess 4.0 (-2-2) H Shai Test Positive Ammonia 41 umol/L (11-32) H Vitamin B12 Level 1209 PG/ML (193-986) H White Blood Count 13.1 K/UL (4.8-10.8) H Red Blood Count 3.51 M/UL (4.70-6.10) L Hemoglobin 10.2 G/DL (14.2-18.0) L Hematocrit 33.3 % (42.0-52.0) L Mean Corpuscular Volume 95 FL (80-99) Mean Corpuscular Hemoglobin 28.9 PG (27.0-31.0) Mean Corpuscular Hemoglobin Concent 30.5 G/DL (32.0-36.0) L Red Cell Distribution Width 17.2 % (11.6-14.8) H Platelet Count 216 K/UL (150-450) Mean Platelet Volume 6.1 FL (6.5-10.1) L Neutrophils (%) (Auto) 79.1 % (45.0-75.0) H Lymphocytes (%) (Auto) 11.4 % (20.0-45.0) L Monocytes (%) (Auto) 8.2 % (1.0-10.0) Eosinophils (%) (Auto) 0.8 % (0.0-3.0) Basophils (%) (Auto) 0.4 % (0.0-2.0) Sodium Level 139 MMOL/L (136-145) Potassium Level 4.4 MMOL/L (3.5-5.1) Chloride Level 100 MMOL/L (98-107) Carbon Dioxide Level 29 MMOL/L (21-32) Anion Gap 10 mmol/L (5-15) Blood Urea Nitrogen 82 mg/dL (7-18) H Creatinine 7.1 MG/DL (0.55-1.30) H Estimat Glomerular Filtration Rate 7.8 mL/min (>60) Glucose Level 193 MG/DL (74-106) H Uric Acid 6.2 MG/DL (2.6-7.2) Calcium Level 8.3 MG/DL (8.5-10.1) L Phosphorus Level 5.0 MG/DL (2.5-4.9) H Magnesium Level 2.7 MG/DL (1.8-2.4) H Total Bilirubin 1.0 MG/DL (0.2-1.0) Direct Bilirubin 0.8 MG/DL (0.0-0.3) H Aspartate Amino Transf (AST/SGOT) 18 U/L (15-37) Alanine Aminotransferase (ALT/SGPT) 12 U/L (12-78) Alkaline Phosphatase 181 U/L (46-116) H C-Reactive Protein, Quantitative 11.6 mg/dL (0.00-0.90) H Pro-B-Type Natriuretic Peptide > 07293 pg/mL (0-125) H Total Protein 7.6 G/DL (6.4-8.2) Albumin 1.9 G/DL (3.4-5.0) L Current Medications Medications (Trade) Dose Ordered Sig/Feli Route PRN Reason Start Time Stop Time Status Last Admin Dose Admin Acetaminophen (Tylenol) 650 mg Q4HR PRN NG Mild Pain/Temp > 100.5 02/28/19 09:30 03/30/19 09:29 02/28/19 09:56 Chlorhexidine Gluconate (Kiara-Hex 2%) 1 applic DAILY@1999 TOPIC 02/27/19 20:00 03/25/19 19:59 03/02/19 21:00 Dextrose (Dextrose 50%) 25 ml Q30M PRN IV Hypoglycemia 02/27/19 13:15 03/23/19 20:44 Dextrose (Dextrose 50%) 50 ml Q30M PRN IV Hypoglycemia 02/27/19 13:15 03/23/19 20:44 Heparin Sodium (Porcine) (Heparin 5000 units/ml) 5,000 units EVERY 8 HOURS SUBQ 02/27/19 14:00 03/25/19 15:59 03/02/19 13:35 Insulin Aspart (NovoLOG) EVERY 6 HOURS SUBQ 03/03/19 12:00 03/23/19 20:59 Lansoprazole (Prevacid) 30 mg Q12HR NG 03/02/19 21:00 04/01/19 20:59 03/03/19 09:51 Metoclopramide HCl (Reglan) 5 mg Q6H PRN IVP Nausea & Vomiting 2ND CHOICE 02/28/19 10:15 03/30/19 10:14 Midodrine (Pro-Amatine) 10 mg THREE TIMES A DAY ORAL 02/27/19 13:00 03/25/19 17:59 03/03/19 09:51 Ondansetron HCl (Zofran) 4 mg Q6H PRN IVP Nausea & Vomiting 02/27/19 14:45 03/23/19 20:44 Polyethylene Glycol (Miralax) 17 gm DAILYPRN PRN ORAL Constipation 02/27/19 20:45 03/23/19 20:44 Promethazine HCl/ Codeine (Phenergan with Codeine) 5 ml Q4H PRN ORAL For Cough 02/27/19 13:00 03/23/19 12:59 02/27/19 15:03 Sevelamer Carbonate (Renvela) 1,600 mg THREE TIMES A DAY ORAL 02/27/19 13:00 03/27/19 18:27 03/03/19 09:51 Vancomycin HCl (Vanco rx to dose) 1 ea DAILY PRN MISC Per rx protocol 02/28/19 09:00 03/24/19 10:14 Jaime Lux MD Mar 03, 2019 11:06
--- NOTE | 2019-03-03 11:15 | GI Progress Note ---
Assessment/Plan Problems: (1) Dysphagia ICD Codes: R13.10 - Dysphagia, unspecified SNOMED: 58407361, 186744770 (2) Anemia ICD Codes: D64.9 - Anemia, unspecified SNOMED: 975398856 (3) Intractable abdominal pain ICD Codes: R10.9 - Unspecified abdominal pain SNOMED: 14444649 Status: unchanged Status Narrative Discussed with Dr. Chaudhari. Assessment/Plan NGTF >>> increase to goal on reglan pending video swallow when more alert fu pulm recs The patient was seen and examined at bedside and all new and available data was reviewed in the patients chart. I agree with the above findings, impression and plan. (Patient seen earlier today. Signature stamp does not reflect patient encounter time.). - Alfred Chaudhari MD Subjective Subjective limited Objective Last 24 Hour Vital Signs Date Time Temp Pulse Resp B/P (MAP) Pulse Ox O2 Delivery O2 Flow Rate FiO2 03/03/19 08:00 Venturi Mask 14.0 03/03/19 08:00 98.2 79 22 111/62 (78) 94 03/03/19 08:00 14.0 55 03/03/19 07:52 78 03/03/19 04:00 98.3 68 32 123/60 (81) 94 03/03/19 04:00 14.0 55 03/03/19 03:33 78 03/03/19 00:00 99.0 75 32 124/63 (83) 95 03/02/19 23:25 75 03/02/19 21:00 Venturi Mask 14.0 03/02/19 20:00 14.0 55 03/02/19 20:00 77 03/02/19 20:00 99.3 78 30 114/68 (83) 96 03/02/19 16:00 97.0 80 27 123/72 (89) 94 03/02/19 16:00 Venturi Mask 14.0 03/02/19 16:00 14.0 55 03/02/19 15:18 78 03/02/19 12:00 98.2 76 24 123/72 (89) 97 03/02/19 12:00 12.0 50 03/02/19 11:34 76 Intake and Output 03/02/19 03/03/19 19:00 07:00 Intake Total 560 ml 580 ml Balance 560 ml 580 ml Free Water 150 ml 100 ml Tube Feeding 410 ml 480 ml # Voids 1 # Bowel Movements 1 1 Laboratory Tests Test 03/02/19 14:45 03/02/19 15:20 03/02/19 19:45 03/03/19 07:00 Prothrombin Time 12.3 SEC (9.30-11.50) H Prothromb Time International Ratio 1.2 (0.9-1.1) H Activated Partial Thromboplast Time 37 SEC (23-33) H Arterial Blood pH 7.314 (7.350-7.450) Arterial Blood Partial Pressure CO2 63.3 mmHg (35.0-45.0) *H Arterial Blood Partial Pressure O2 62.5 mmHg (75.0-100.0) L Arterial Blood HCO3 31.6 mmol/L (22.0-26.0) H Arterial Blood Oxygen Saturation 89.1 % (95-100) *L Arterial Blood Base Excess 4.0 (-2-2) H Shai Test Positive Ammonia 41 umol/L (11-32) H Vitamin B12 Level 1209 PG/ML (193-986) H White Blood Count 13.1 K/UL (4.8-10.8) H Red Blood Count 3.51 M/UL (4.70-6.10) L Hemoglobin 10.2 G/DL (14.2-18.0) L Hematocrit 33.3 % (42.0-52.0) L Mean Corpuscular Volume 95 FL (80-99) Mean Corpuscular Hemoglobin 28.9 PG (27.0-31.0) Mean Corpuscular Hemoglobin Concent 30.5 G/DL (32.0-36.0) L Red Cell Distribution Width 17.2 % (11.6-14.8) H Platelet Count 216 K/UL (150-450) Mean Platelet Volume 6.1 FL (6.5-10.1) L Neutrophils (%) (Auto) 79.1 % (45.0-75.0) H Lymphocytes (%) (Auto) 11.4 % (20.0-45.0) L Monocytes (%) (Auto) 8.2 % (1.0-10.0) Eosinophils (%) (Auto) 0.8 % (0.0-3.0) Basophils (%) (Auto) 0.4 % (0.0-2.0) Sodium Level 139 MMOL/L (136-145) Potassium Level 4.4 MMOL/L (3.5-5.1) Chloride Level 100 MMOL/L (98-107) Carbon Dioxide Level 29 MMOL/L (21-32) Anion Gap 10 mmol/L (5-15) Blood Urea Nitrogen 82 mg/dL (7-18) H Creatinine 7.1 MG/DL (0.55-1.30) H Estimat Glomerular Filtration Rate 7.8 mL/min (>60) Glucose Level 193 MG/DL (74-106) H Uric Acid 6.2 MG/DL (2.6-7.2) Calcium Level 8.3 MG/DL (8.5-10.1) L Phosphorus Level 5.0 MG/DL (2.5-4.9) H Magnesium Level 2.7 MG/DL (1.8-2.4) H Total Bilirubin 1.0 MG/DL (0.2-1.0) Direct Bilirubin 0.8 MG/DL (0.0-0.3) H Aspartate Amino Transf (AST/SGOT) 18 U/L (15-37) Alanine Aminotransferase (ALT/SGPT) 12 U/L (12-78) Alkaline Phosphatase 181 U/L (46-116) H C-Reactive Protein, Quantitative 11.6 mg/dL (0.00-0.90) H Pro-B-Type Natriuretic Peptide > 72884 pg/mL (0-125) H Total Protein 7.6 G/DL (6.4-8.2) Albumin 1.9 G/DL (3.4-5.0) L Height (Feet): 5 Height (Inches): 8.00 Weight (Pounds): 167 General Appearance: WD/WN, no apparent distress, alert Cardiovascular: normal rate Respiratory/Chest: normal breath sounds, no respiratory distress Abdominal Exam: normal bowel sounds, non tender, soft, other - NGT Extremities: normal range of motion, non-tender Peng Chicas NP Mar 03, 2019 11:15
--- NOTE | 2019-03-03 11:25 | NUR ---
NURSE NOTES: Dr. Rose made aware that patient is not breathing good, labored breathing with venturi mask Fio2 55%, oxygen saturation of 93% in the portable machine at bedside. said to continue to monitor.
--- NOTE | 2019-03-03 11:27 | Pulmonology Progress Note ---
Assessment/Plan Problems: (1) Infection, dialysis vascular access (2) Sepsis (3) Gram-positive bacteremia (4) Pleural effusion (5) Intractable abdominal pain (6) ESRF (end stage renal failure) (7) Diabetes mellitus (8) Hypertension (9) Cognitive impairment Assessment/Plan Persistent bacteremia caused by HD access, removed yesterday increasing right effusion, might be infected, need thoracentesis BC positive for Staph aureus again, last one from 03/02 symptomatic treatment titrate fio2 to sat of 92% check electrolytes HD by nephrology sliding scale dvt prophylaxis. Subjective ROS Limited/Unobtainable: Yes Interval Events: Permacath removed yesterday Allergies: Coded Allergies: No Known Allergies (Unverified , 01/29/19) Objective Last 24 Hour Vital Signs Date Time Temp Pulse Resp B/P (MAP) Pulse Ox O2 Delivery O2 Flow Rate FiO2 03/03/19 08:00 Venturi Mask 14.0 03/03/19 08:00 98.2 79 22 111/62 (78) 94 03/03/19 08:00 14.0 55 03/03/19 07:52 78 03/03/19 04:00 98.3 68 32 123/60 (81) 94 03/03/19 04:00 14.0 55 03/03/19 03:33 78 03/03/19 00:00 99.0 75 32 124/63 (83) 95 03/02/19 23:25 75 03/02/19 21:00 Venturi Mask 14.0 03/02/19 20:00 14.0 55 03/02/19 20:00 77 03/02/19 20:00 99.3 78 30 114/68 (83) 96 03/02/19 16:00 97.0 80 27 123/72 (89) 94 03/02/19 16:00 Venturi Mask 14.0 03/02/19 16:00 14.0 55 03/02/19 15:18 78 03/02/19 12:00 98.2 76 24 123/72 (89) 97 03/02/19 12:00 12.0 50 03/02/19 11:34 76 Intake and Output 03/02/19 03/03/19 19:00 07:00 Intake Total 560 ml 580 ml Balance 560 ml 580 ml Free Water 150 ml 100 ml Tube Feeding 410 ml 480 ml # Voids 1 # Bowel Movements 1 1 HEENT: normocephalic Respiratory/Chest: chest wall non-tender, lungs clear Cardiovascular: normal peripheral pulses, normal rate Abdomen: normal bowel sounds, soft, non tender Genitourinary: normal external genitalia Extremities: no cyanosis Skin: no rash 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 Microbiology Date/Time Source Procedure Growth Status 03/02/19 04:00 Blood Blood Culture - Preliminary Resulted 03/02/19 10:35 Other(Specify in comment) Catheter Tip Culture - Preliminary NO GROWTH Resulted Laboratory Tests 03/02/19 14:45: Prothrombin Time 12.3H, Prothromb Time International Ratio 1.2H, Activated Partial Thromboplast Time 37H 03/02/19 15:20: Arterial Blood pH 7.314L, Arterial Blood Partial Pressure CO2 63.3*H, Arterial Blood Partial Pressure O2 62.5L, Arterial Blood HCO3 31.6H, Arterial Blood Oxygen Saturation 89.1*L, Arterial Blood Base Excess 4.0H, Shai Test Positive 03/02/19 19:45: Ammonia 41H, Vitamin B12 Level 1209H 03/03/19 07:00: White Blood Count 13.1H, Red Blood Count 3.51L, Hemoglobin 10.2L, Hematocrit 33.3L, Mean Corpuscular Volume 95, Mean Corpuscular Hemoglobin 28.9, Mean Corpuscular Hemoglobin Concent 30.5L, Red Cell Distribution Width 17.2H, Platelet Count 216, Mean Platelet Volume 6.1L, Neutrophils (%) (Auto) 79.1H, Lymphocytes (%) (Auto) 11.4L, Monocytes (%) (Auto) 8.2, Eosinophils (%) (Auto) 0.8, Basophils (%) (Auto) 0.4, Sodium Level 139, Potassium Level 4.4, Chloride Level 100, Carbon Dioxide Level 29, Anion Gap 10, Blood Urea Nitrogen 82H, Creatinine 7.1H, Estimat Glomerular Filtration Rate 7.8, Glucose Level 193H, Uric Acid 6.2, Calcium Level 8.3L, Phosphorus Level 5.0H, Magnesium Level 2.7H, Total Bilirubin 1.0, Direct Bilirubin 0.8H, Aspartate Amino Transf (AST/SGOT) 18 , Alanine Aminotransferase (ALT/SGPT) 12, Alkaline Phosphatase 181H, C-Reactive Protein, Quantitative 11.6H, Pro-B-Type Natriuretic Peptide > 93081X, Total Protein 7.6, Albumin 1.9L Current Medications Medications (Trade) Dose Ordered Sig/Feli Route PRN Reason Start Time Stop Time Status Last Admin Dose Admin Acetaminophen (Tylenol) 650 mg Q4HR PRN NG Mild Pain/Temp > 100.5 02/28/19 09:30 03/30/19 09:29 02/28/19 09:56 Chlorhexidine Gluconate (Kiara-Hex 2%) 1 applic DAILY@2000 TOPIC 02/27/19 20:00 03/25/19 19:59 03/02/19 21:00 Dextrose (Dextrose 50%) 25 ml Q30M PRN IV Hypoglycemia 02/27/19 13:15 03/23/19 20:44 Dextrose (Dextrose 50%) 50 ml Q30M PRN IV Hypoglycemia 02/27/19 13:15 03/23/19 20:44 Heparin Sodium (Porcine) (Heparin 5000 units/ml) 5,000 units EVERY 8 HOURS SUBQ 02/27/19 14:00 03/25/19 15:59 03/02/19 13:35 Insulin Aspart (NovoLOG) EVERY 6 HOURS SUBQ 03/03/19 12:00 03/23/19 20:59 Lansoprazole (Prevacid) 30 mg Q12HR NG 03/02/19 21:00 04/01/19 20:59 03/03/19 09:51 Metoclopramide HCl (Reglan) 5 mg Q6H PRN IVP Nausea & Vomiting 2ND CHOICE 02/28/19 10:15 03/30/19 10:14 Midodrine (Pro-Amatine) 10 mg THREE TIMES A DAY ORAL 02/27/19 13:00 03/25/19 17:59 03/03/19 09:51 Ondansetron HCl (Zofran) 4 mg Q6H PRN IVP Nausea & Vomiting 02/27/19 14:45 03/23/19 20:44 Polyethylene Glycol (Miralax) 17 gm DAILYPRN PRN ORAL Constipation 02/27/19 20:45 03/23/19 20:44 Promethazine HCl/ Codeine (Phenergan with Codeine) 5 ml Q4H PRN ORAL For Cough 02/27/19 13:00 03/23/19 12:59 02/27/19 15:03 Sevelamer Carbonate (Renvela) 1,600 mg THREE TIMES A DAY ORAL 02/27/19 13:00 03/27/19 18:27 03/03/19 09:51 Vancomycin HCl (Vanco rx to dose) 1 ea DAILY PRN MISC Per rx protocol 02/28/19 09:00 03/24/19 10:14 Maurizio Rose MD Mar 03, 2019 11:27
--- NOTE | 2019-03-03 13:40 | NUR ---
NURSE NOTES: Entertainer & Comic/Dariela and Dr. Ozuan at bedside. Patient is for thoracentesis.
--- NOTE | 2019-03-03 14:09 | NUR ---
CASE MANAGEMENT:REVIEW SI;SEPSIS. BACTEREMIA. ESRF. 98.3 68 32 118/57 94% ON VENTURI MASK FIO2 55% WBC 13.1 RBC 3.51 HGB 10.2 HCT 33.3 ALB 1.9 P-BNP >09185 IS;IV VANCO QD PRN IV CEFEPIME Q24 MIDODRINE PO TID HEPARIN SQ Q8HRS ANGIE STATUS
--- NOTE | 2019-03-03 14:10 | NUR ---
NURSE NOTES: Noted patient desaturating with venturi mask FIO2 at 55%, oxygen saturation noted at 50%. RT at bedside changed venturi mask to non rebreather mask.
--- NOTE | 2019-03-03 14:12 | NUR ---
CODE BLUE: See Code sheet which remains on paper.
--- NOTE | 2019-03-03 14:17 | NUR ---
NURSE NOTES: Dr. Rose made aware that patient on code blue at this moment.
--- NOTE | 2019-03-03 14:19 | Pre-Procedure Note/Attestation ---
Pre-Procedure Note/Attestation Complete Prior to Procedure Planned Procedure: right Procedure Narrative: thoracentesis Indications for Procedure Pre-Operative Diagnosis: R pleural effusion Attestation I attest that I discussed the nature of the procedure; its benefits; risks and complications; and alternatives (and the risks and benefits of such alternatives ), prior to the procedure, with the patient (or the patient's legal sales representative uniforms). I attest that, if there was a reasonable possibility of needing a blood transfusion, the patient (or the patient's legal sales representative uniforms) was given the [facility] standardized written summary, pursuant to the [place] Blood Safety Act ([place] Health and Safety Code # 1645, as amended). I attest that I re-evaluated the patient just prior to the surgery and that there has been no change in the patient's H&P, except as documented below: Discussed by phone with pts by phone at 1230 Kobe Devries MD Mar 03, 2019 14:19
--- NOTE | 2019-03-03 14:20 | NUR ---
NURSE NOTES: Patient's at bedside. Made aware regarding patient's condition.
--- NOTE | 2019-03-03 14:21 | Brief Operative Note ---
Immediate Post Operative Note Operative Note Pre-op Diagnosis: R pleural effusion Procedure: thoracentesis Post-op Diagnosis: same as pre-op Surgeon: Aleta Dewitt Anesthesia: local Specimen: yes - 50 ml fluid sent to lab Complications: yes - pt. became hypoxic p procedure and code blue was called Fluids: none Implant(s) used?: No Kobe Dewitt MD Mar 03, 2019 14:21
--- NOTE | 2019-03-03 14:25 | Diagnostic Imaging Report ---
Indications: Pleural effusion Technique: Ultrasound used to localize optimal puncture site. Sterile prepping and draping right chest. Local anesthesia with 1% lidocaine. Under real-time ultrasound guidance, puncture pleural space using thoracentesis needle. Stylet removed. Catheter placed to vacuum bottle suction. Total 1800 milliliters of clear yellow fluid aspirated. Patient tolerated procedure well, without immediate complication. However, shortly after the procedure, patient developed hypoxia and continent was called Findings: Followup sonography demonstrates complete resolution of pleural fluid. Impression: Successful ultrasound-guided thoracentesis, yielding 1800 milliliters of fluid
--- NOTE | 2019-03-03 14:44 | NUR ---
NURSE NOTES: Informed patient's Huma Davis that patient is going to ICU. Patient's remains at visitor's waiting room. And she verbalized that she took home all patient's belongings. No belongings noted at bedside.
--- NOTE | 2019-03-03 14:45 | NUR ---
TRANSFER TO FLOOR: Patient transferred to ICU room 246-A, per Dr. Rose, s/p code blue. Family at bedside and or S/O informed of transfer.
--- NOTE | 2019-03-03 14:52 | NUR ---
NURSE NOTES: Dr. Rose made aware that patient is now in ICU, room 246-A.
--- NOTE | 2019-03-03 14:57 | NUR ---
NURSE NOTES: late entry: RECEIVED REPORT FROM TRISHA. Roblero PT CODE FROM 2W. VS: HR 109, BP 158/82, SP02 100%, RR 11. PT IN ROOM. R.T'S BAGGING PT. ET-TUBE 7.5, 25CM AT LIP. SECRETIONS SANGUINOUS. AGONAL BREATHS NOTED. NON RESPONSIVE TO DEEP PAIN. NO GAG, PUPILS FIXED AND DILATED. SKIN PALE, COLD TO TOUCH, BILATERAL UPPER AND LOWER PULSES THREADY. ABDOMEN DISTENDED, BOWEL SOUNDS ABSENT. NGT FOUND AT 5CM IN LT NOSTRIL. PT ANURIC. CARDIAC PADS REMAIN ATTACHED.
--- NOTE | 2019-03-03 15:01 | Diagnostic Imaging Report ---
Indication: Status post thoracentesis, status post CODE BLUE, status post intubation Technique: One view of the chest Comparison: 02/27/2019 Findings: Interim evacuation of previously demonstrated large right pleural effusion, status post thoracentesis. There is a small amount of residual fluid outlining the right lower lobe. There is a basilar ex vacuo pneumothorax. However, the right lung is overall more well-expanded than seen on the prior chest radiograph. There is diffuse interstitial and airspace edema throughout the right lung which is new or increased since the prior study. Previously demonstrated right sided tunneled dialysis catheter has been removed. Previously demonstrated nasogastric tube is been removed. There is a endotracheal tube in place, tip projecting approximate 4 cm above the maria dolores. There are overlying defibrillator paddles. Left pleural effusion appears slightly smaller than on the prior study. Mild left interstitial edema appears similar to the previous exam. Impression: Mostly resolved right pleural effusion, status post large volume thoracentesis. There is an ex vacuo basilar pneumothorax. However, the size of the pneumothorax is smaller than the original total fluid collection and the lung is better expanded than on the prior study. Right-sided pulmonary edema. Given recent thoracentesis, this could indicate reexpansion pulmonary edema, although reported history of development would be very unusual and this may just reflect pre-existing pulmonary edema Status post endotracheal intubation, satisfactory endotracheal tube tip position Interim tunneled dialysis catheter and nasogastric tube removal Clinical value findings discussed by phone with Dr. Rose at the time of interpretation
--- NOTE | 2019-03-03 15:09 | NUR ---
HAND-OFF: Report given to Judy Marcum RN.
--- NOTE | 2019-03-03 15:20 | NUR ---
CODE BLUE: See Code sheet which remains on paper.
--- NOTE | 2019-03-03 15:25 | NUR ---
NURSE NOTES: called md jauregui to informed pt in icu second code. for chest tube requesting sedation. received order for fentanyl drip.
--- NOTE | 2019-03-03 15:33 | NUR ---
NURSE NOTES: md prep pt for chest tube, chest tube inserted rt lung. 1L sanguinous fluid drainage total in few minutes, connected to low continuous suction. no lung sounds noted. sanguinous secretions from et-tube, r.t suctioned. [id number]%
[2019-03-03] MEDS ORDERED: Lidocaine 1% 10mg/ml/Epi 0.005mg/ml 30ml vial INJ ONE (15:35)
--- NOTE | 2019-03-03 16:16 | NUR ---
CODE BLUE: See Code sheet which remains on paper.
--- NOTE | 2019-03-03 16:25 | Emergency Room Report ---
History of Present Illness General Chief Complaint: Dyspnea/Respdistress Source: Family Member, Medical Record Present Illness Allergies: Coded Allergies: No Known Allergies (Unverified , 01/29/19) Nursing Documentation-[facility] Past Medical History: No History, Except For Hx Hypertension: Yes Hx Diabetes: Yes Hx Gastrointestinal Problems: Yes - GERD Hx Dialysis: Yes - MWF; ESRD; UTI Physical Exam Vital Signs Date Time Temp Pulse Resp B/P (MAP) Pulse Ox O2 Delivery O2 Flow Rate FiO2 02/27/19 08:00 98.1 68 22 117/62 (80) 99 02/27/19 08:00 12.0 50 02/27/19 09:00 Venturi Mask Procedures Critical Care Time Critical Care Time Total critical care time: Approximately 75 minutes Due to a high probability of clinically significant, life threatening deterioration, the patient required the highest level of preparedness to intervene emergently and I personally spent this critical care time directly and personally managing the patient. This critical care time included obtaining a history, examining the patient, pulse oximetry, ordering and reviewing studies , ordering treatments, evaluating response to treatment and updating management plan as needed, frequent reassessment and discussion with other providers as well as arranging for ultimate disposition. This critical to care time was performed to assess and manage the high probability of life-threatening deterioration that could result in multiorgan failure. This critical care time is separate from the separately billable procedures and treating other patients. CPR/Code Blue CPR/Code Blue Narrative See MDM section of this note Intubation Intubation : Consent: Emergent Intubation Method: orotracheal Tube Size (cm): 7.5 Breath Sounds after Intubation: equal Intubation Complications: no complications Post Intubation Xray: Yes Progress/Xray Impression: Endotracheal tube in appropriate position. Right- sided pneumothorax approx Attempts: One Patient Tolerated: Well Complications: None Medical Decision Making Diagnostic Impression: Primary Impression: ESRF (end stage renal failure) Additional Impression: Pleural effusion ER Course Called to the floor for CODE BLUE. Patient found in asystole. ESRD patient with recent thoracentesis. Difficult to bag, no breath sounds bilaterally. 2 needle decompressions were performed in the second intercostal spaces. Patient was intubated under glide scope on first attempt. Ventilations improved. Right interosseous line placed into the right tibia for better access. After several rounds of epinephrine and bicarb per ACLS protocol the patient recovered pulses. Initial rhythm appeared to sinus tachycardia. X-ray showed proper endotracheal tube placement however a right-sided pneumothorax. Patient was transferred to the ICU. Prior to placement of the chest tube another CODE BLUE was called for PEA arrest. Lasted 1 round of compressions and he received 2 amps of bicarb and 1 of epinephrine with return of spontaneous circulation. Again he was sinus tachycardia after return of spontaneous circulation. A 28 Macanese chest tube was placed in the right side by Dr. Flowers with evacuation of serosanguineous fluid. Shortly after securing the chest tube the patient again lost pulses for 1 round of compressions and again responded to epinephrine and bicarb. ICU team updated. Remainder of care per ICU team. 1631: I was called to the ICU to pronounce the patient. He had been made DNR following the previous code. Asystole on monitor, no palpable pulse in the carotid or femoral. Pupils are fixed and dilated. No corneal reflex. No gag reflex. Family was present during pronouncement. Time of 1631. Last Vital Signs Date Time Temp Pulse Resp B/P (MAP) Pulse Ox O2 Delivery O2 Flow Rate FiO2 03/03/19 15:37 87 16 100 Mechanical Ventilator 100 03/03/19 15:02 103/47 (65) 03/03/19 14:45 98.2 03/03/19 12:00 14.0 Disposition: Condition: Critical Referrals: NON PHYSICIAN (PCP) Don Gambino MD Mar 03, 2019 16:25
--- NOTE | 2019-03-03 16:25 | NUR ---
NURSE NOTES: md Rosalio FIGUEROA requested lab orders for bmp, cbc, cxr.
--- NOTE | 2019-03-03 16:31 | NUR ---
NURSE NOTES: PT PRONOUNCED BY MD. [facility] CALLED AND CORNER BY Grey GARNETT AT BEDSIDE.
[2019-03-03] MEDS ORDERED: NS 275ml ONE ×2 (16:59)
[2019-03-03] MEDS ORDERED: Etomidate 40mg/20ml Inj IV ONE (16:59)
[2019-03-03] MEDS ORDERED: Sodium Bicarbonate 8.4% 50ml Inj ONE (16:59)
[2019-03-03] MEDS ORDERED: Succinylcholine 20mg/ml 10ml vial ONE (16:59)
[2019-03-03] MEDS ORDERED: Tubing IV Blood Pump IV ONE (16:59)
[2019-03-03] MEDS ORDERED: Sterile Water Irrig 1000ml IRRIG ONE (16:59)
[2019-03-03] MEDS ORDERED: Tubing IV Secondary IV ONE (16:59)
--- NOTE | 2019-03-03 17:45 | Progress Note ---
DATE: 03/03/2019 SUBJECTIVE: The patient is unchanged. He has no evidence for seizures. His B12 level is elevated of over 1200. PHYSICAL EXAMINATION: VITAL SIGNS: Temperature is 98.2 degree, pulse is 79 and regular, respiration rate is 22 using accessory muscles, blood pressure is 111/62 on the Venturi mask with an FiO2 of 55. NEUROLOGIC EXAMINATION: MENTAL STATUS: The patient lies with his eyes open. No spontaneous speech. No response to commands or his name. He shrugs his shoulders with . Otherwise, there is no movement of his extremities or response to deep pain. CRANIAL NERVE EXAMINATION: CRANIAL NERVE II: There is questionable threat noted on the left side. Otherwise, there is no evidence of threat on the right eye. CRANIAL NERVES III, IV, AND : The eyes are basically in the midline with some early eye movements. The right pupil is about 4 mm, round, reactive to light. Left eye is approximately 4.5 mm, round, light reactive, but little more sluggishly. CRANIAL NERVE V: Corneal examination is intact bilaterally. CRANIAL NERVES VII THROUGH XII: Could not be tested. MUSCLE EXAMINATION: Decreased tone in the upper extremities. No movement with pain stimulation. REFLEXES: 0 in the upper and lower extremities with indefinite toe signs bilaterally. The patient has a bandage on his right toe. SENSORY EXAMINATION: There is no significant movement with deep pain in the extremities. 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 Has a metabolic encephalopathy as well related to sepsis, renal failure, and heart disease. His serum ammonia is slightly elevated at 41 not significantly elevated. The patient's prognosis is dependent on treatment of his metabolic problems. PLAN: 1. Treat the patient as above. 2. EEG. Sebas Cartagena MD DR: LORNA JOB#: [id number] CC:
--- NOTE | 2019-03-03 17:56 | Operative Note - PDOC ---
Operative Note Operative Note Date of Operation/Procedure: Mar 03, 2019 Pre-op Diagnosis: Hydropneumothorax Procedure: Right tube thoracostomy Post-op Diagnosis: same as pre-op Surgeon: Zack Flowers MD Anesthesiologist: Not applicable Anesthesia: local Specimen: none Complications: none Condition: unstable Fluids: none Estimated Blood Loss: minimal Drains: other - 36 Moroccan Implant(s) used?: No Indications for Procedure 63-year-old male intensive care unit currently undergoing resuscitation after cardiovascular event noted to have hydropneumothorax on the right attempted to thoracostomy by ED physician initially but surgery called to assist and place tube given difficulty and anatomy. Emergently rushed to the intensive care unit which time patient was seen with regain vitals after recent cardiovascular event ACLS protocol. Tube indicated recommended and emergently placed Description of Procedure Gloved and gowned appropriately right chest wall was already prepped and draped. 3 cm prior incision utilized and tracking down to the 56 intercostal space at the level of the nipple. Slow dissection into the intercostal space and entry into the pleural space with evacuation of serosanguineous fluid approximately 100 cc initially followed by 36 Moroccan chest tube placement appropriately positioned and placed to Pleur-evac suction with greater than a liter being evacuated chest tube secured in fashion in place using 0 nylon sutures. Dressings applied. Tube placed to appropriate suction. Zack Flowers Mar 03, 2019 17:56
--- NOTE | 2019-03-03 20:00 | NUR ---
NURSE NOTES: Family at the bedside. awaiting mortuary to arrive. nursing supervisor kennel aware.
--- NOTE | 2019-03-05 14:20 | Discharge Summary ---
Discharge Summary Discharge Summary _ SUMMARY DATE OF ADMISSION: 02/21/2019 DATE OF EXPIRATION: 03/03/2019 REASON FOR ADMISSION: 63 years old male with past medical history of end-stage renal disease, on hemodialysis, cardiomyopathy with prior ejection fraction 20%, hypertension, diabetes mellitus, cognitive impairment, recent and recurrent hospitalizations, was brought from the residential facility with chief complaint of increased shortness of breath. Patient was hypoxic and required supplemental oxygen. Laboratory work-up revealed elevated BUN and creatinine : BUN 48, creatinine 3.9 , consistent with known history of end-stage renal disease. Potassium 4.5. Troponin 0.064. pro BNP 99849. ECG revealed normal sinus rhythm , no acute ischemic changes AST 48 , ALT 31 , alkaline phosphatase 301. Albumin 2.5. CBC revealed leukocytosis with WBC 13.2 ,hemoglobin 10.3, hematocrit 32.8, platelet count 210. Chest x-ray revealed large bilateral pleural effusion ABG on 100% nonrebreathing mask was stable. Patient started received empiric antibiotic and admitted to telemetry floor for further management. CONSULTANTS: management associate Dr. Soto neurologist Dr. [place] ID specialist Dr. Lux GI specialist Dr. Chaudhari remotely piloted vehicle controller Dr. [facility] COURSE: Patient admitted to telemetry floor and started on empiric antibiotics. Supplemental oxygen provided and titrated to keep pulse oximetry above 92%. Pulmonary toilet with bronchodilator provided as needed. Hemodialysis was arranged as per remotely piloted vehicle controller with close monitoring of volumes, cardiorenal parameters electrolytes. Echocardiogram revealed left ventricular apical brittani-septum and posterior wall akinesis. Left ventricular ejection fraction estimated to be 45%. Large pleural effusion. Mild left ventricular hypertrophy. Right ventricular systolic pressure of 30. Electrical Maintenance Supervisor followed. Second troponin still minimally elevated 0.104. No ischemic changes on ECG. Patient had prior cardiac catheterization at [facility] in July 2018. No significant coronary artery disease at this time. Lipid panel remained stable. TSH within normal limits. Beta-abbi continued. DVT prophylaxis provided Venous duplex revealed no evidence of acute DVT. Blood pressure was supported with Midodrine. Infectious disease specialist followed. Blood culture revealed MRSA. No evidence of vegetation on echocardiogram. Repeated blood culture still revealed MRSA on 02/24, 02/25 , 02/28 and 03/02. Bacteremia with presumably due to infected Perma-Cath. Perma-cath was discontinued. Patient noted to have altered mental status . CT of the head revealed no evidence of acute intracranial bleeding or mass- effect. Chronic and age-related changes noted and small scalp hematoma. Neurologist followed. Ammonia level 41, minimally elevated. 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 Patient also had metabolic encephalopathy , related to sepsis , enal failure and heart disease. EEG was ordered. GI specialist followed. NG tube was inserted for nutritional support. Tube feeding formula with goal rate and protein supplements provided as per labor and delivery registered nurse recommendation. Strict aspiration precaution maintained. Video swallow evaluation was pending when patient will be more alert. Blood sugar was managed with sliding scale of insulin Hemoglobin and hematocrit were closely monitored with goal to keep hemoglobin above 7. Prior to expiration hemoglobin 10.2 hematocrit 33.3. Perma-Cath was discontinued , as mentioned above on 03/02/2019. Patient undergone ultrasound-guided thoracentesis of right pleural effusion with pleural fluid analysis and pleural culture , which yielded 1800 mL of pleural fluid . Follow-up ultrasound revealed complete resolution of pleural fluid. Preliminary pleural fluid culture at the time of this dictation revealed no evidence of growth. CODE BLUE was called later , the same day, since patient was found in asystole. CODE BLUE was initiated as per ACLS protocol. Patient was urgently orally intubated and transferred to ICU. Chest x-ray confirmed correct placement of endotracheal tube. Mostly resolved right pleural effusion . Ex vacuo basilar right-sided pulmonary edema. Given recent thoracentesis , it could indicate reexpansion pulmonary edema. Another CODE BLUE was called due to the pulseless electrical activity arrest with subsequent return of spontaneous circulation. Surgeon performed right tube thoracostomy placement at the bedside secondary to hydropneumothorax with evacuation of serosanguineous fluid. Shortly after securing the chest tube , the patient again lost pulses and responded to one round of compressions , epinephrine and bicarbonate. Patient subsequently had been made DNR following the previous code. Patient was again in asystole on the monitor and subsequently was pronounced at 16: 30 on 03/03/2019 . Cause of : cardiopulmonary arrest. FINAL DIAGNOSES: Status post cardiopulmonary arrest Acute respiratory failure requiring intubation Sepsis with MRSA bacteremia Likely infected Perma-Cath Large right pleural effusion , status post thoracentesis Hydropneumothorax Status post right tube thoracostomy End-stage renal disease, on hemodialysis CHF Cardiomyopathy Elevated troponin Acute metabolic encephalopathy Diabetes mellitus Sensorimotor neuropathy due to diabetes Hypertension Dysphagia Cognitive impairment I have been assigned to dictate discharge summary for this account. I was not involved in the patient's management. Iliana Phillips NP Mar 05, 2019 14:20
== END 2019-03-03 17:00 | disposition expired | DRG 871 ==
LOC: EDBD 18:51 → EMR 19:31 → 2E 19:34 → EDBEDREQ 21:49 → 2E 02-22 12:00 → 2W 02-27 12:50 → ICU 03-03 14:50
PROC: 5A1D70Z Performance of Urinary Filtration, Intermittent, Less than 6 Hours Per Day (ICD-10-PCS; principal; 2019-02-22)
PROC: 05PYX3Z Removal of Infusion Device from Upper Vein, External Approach (ICD-10-PCS; 2019-03-02)
PROC: 0W993ZZ Drainage of Right Pleural Cavity, Percutaneous Approach (ICD-10-PCS; 2019-03-03)
PROC: 0W9930Z Drainage of Right Pleural Cavity with Drainage Device, Percutaneous Approach (ICD-10-PCS; 2019-03-03)
PROC: 0BH17EZ Insertion of Endotracheal Airway into Trachea, Via Natural or Artificial Opening (ICD-10-PCS; 2019-03-03)
PROC: 5A1935Z Respiratory Ventilation, Less than 24 Consecutive Hours (ICD-10-PCS; 2019-03-03)
DX: A41.9 Sepsis, unspecified organism (principal); N18.6 End stage renal disease; I50.23 Acute on chronic systolic (congestive) heart failure; G93.41 Metabolic encephalopathy; J96.01 Acute respiratory failure with hypoxia; I13.2 Hypertensive heart and chronic kidney disease with heart failure and with stage 5 chronic kidney disease, or end stage renal disease; J90 Pleural effusion, not elsewhere classified; I42.9 Cardiomyopathy, unspecified; J95.811 Postprocedural pneumothorax; T82.7XXA Infection and inflammatory reaction due to other cardiac and vascular devices, implants and grafts, initial encounter; R78.81 Bacteremia; E11.22 Type 2 diabetes mellitus with diabetic chronic kidney disease; Z99.2 Dependence on renal dialysis; E11.21 Type 2 diabetes mellitus with diabetic nephropathy; E11.319 Type 2 diabetes mellitus with unspecified diabetic retinopathy without macular edema; G31.84 Mild cognitive impairment of uncertain or unknown etiology; D64.9 Anemia, unspecified; R00.1 Bradycardia, unspecified; R13.10 Dysphagia, unspecified; R10.9 Unspecified abdominal pain; B95.62 Methicillin resistant Staphylococcus aureus infection as the cause of diseases classified elsewhere; E11.40 Type 2 diabetes mellitus with diabetic neuropathy, unspecified; Z66 Do not resuscitate
CPT/HCPCS: 36415; 36589; 36600; 70450; 71045; 74018; 76700; 76942; 80048; 80053; 80061; 80069; 80076; 80202; 82140; 82248; 82550; 82607; 82803; 82962; 82977; 83036; 83605; 83735; 83880; 84100; 84439; 84443; 84481; 84484; 84550; 85007; 85025; 85610; 85651; 85730; 86140; 86706; 86710; 87040; 87070; 87081; 87181; 87205; 88104; 89051; 92950; 93005; 93306; 93970; 94002; 94664; 96365; 99285; J0171; J1815; J7030